=== PATIENT | female | born 1965 | race Caucasian/White ===

== ENCOUNTER → 2021-06-17 10:58 | Outpatient (BNVA) | payer BC, SELFPAY | PROVIDERS: Visit Provider Nurse Practitioner Family | DX: Z20.822 Contact with and (suspected) exposure to COVID-19 (principal); J06.9 Acute upper respiratory infection, unspecified | CPT/HCPCS: 87426; 87635 ==

== ENCOUNTER 2023-10-09 19:08 | Inpatient (IN) | payer BC, SELFPAY ==
[2023-10-09 19:27] VITALS: BMI 20.5
--- NOTE | 2023-10-09 19:54 | CTR_ITS ---
PROCEDURE INFORMATION: Exam: CT Head With Contrast Exam date and time: 10/09/2023 8:30 PM Age: 58 years old Clinical indication: Altered mental status/memory loss; Patient HX: Sudden onset of paranoid delusions. No prior psychiatric history. ; Additional info: Mental status changes TECHNIQUE: Imaging protocol: Computed tomography of the head with intravenous contrast. Radiation optimization: All CT scans at this facility use at least one of these dose optimization techniques: automated exposure control; mA and/or kV adjustment per patient size (includes targeted exams where dose is matched to clinical indication); or iterative reconstruction. Contrast material: OMNI 350; Contrast volume: 100 ml; Contrast route: INTRAVENOUS (IV); COMPARISON: No relevant prior studies available. RADIATION DOSE METRICS: Total DLP (mGy-cm): 1881.18 FINDINGS: Brain: No acute intracranial hemorrhage. No mass effect. Normal ramirez-white matter differentiation. Mild chronic white matter changes. Vascular calcifications. No abnormal enhancing lesions. Cerebral ventricles: Unremarkable. No ventriculomegaly. Bones/joints: Unremarkable. No acute fracture. Paranasal sinuses: Visualized sinuses are unremarkable. No fluid levels. Mastoid air cells: Visualized mastoid air cells are clear. Asymmetric decreased pneumatization of the left mastoid. Soft tissues: Unremarkable. CT/CT head w con [id number] IMPRESSION: No acute intracranial abnormality.
--- NOTE | 2023-10-09 19:54 | ECG_ITS ---
[facility] Test Date: 2023-10-09 Pat Name: Abby Tomlinson Department: Room: Gender: Female Online Banking Specialist: : 1965 Requested By: Geoff Rey Order Number: [id number] Nichole MD: Cam Benson M.D. Measurements Intervals [place] Rate: 77 P: 46 MT: 124 QRS: 35 QRSD: 82 T: 47 QT: 387 QTc: 441 Interpretive Statements SINUS RHYTHM POSSIBLE LEFT ATRIAL ENLARGEMENT [-0.1mV P-WAVE IN V1/V2] No previous ECG available for comparison Electronically Signed On 10-09-2023 21:47:11 BURIAL VAULT DELIVERER AND INSTALLER by Cam Benson M.D. [email or web address]
[2023-10-09 19:59] LABS: Basophils % 0.3 %; Eosinophils # 0.1 10^3/uL (0.0-0.8); Eosinophils % 1.8 %; Hematocrit 44.3 % (36-47); Lymphocytes # 3.1 10^3/uL (0.8-4.8); Lymphocytes % 42.2 %; Mean Corpuscular HGB Conc 33.6 g/dL (30-55); Mean Corpuscular Hemoglobin 31.5 pg (27-33); Mean Corpuscular Volume 93.7 fl (85-98); Mean Platelet Volume 8.8 fL (7.4-10.4); Monocytes # 0.5 10^3/uL (0.2-0.9); Monocytes % 6.6 %; Neutrophils # 3.64 10^3/uL (1.8-7.7); Nucleated Red Blood Cells % 0 %; Platelet Count 278 10^3/cmm (157-399); Red Blood Count 4.73 10^6/uL (3.85-5.65); Red Cell Distribution Width 11.9 % (12.1-15.1); White Blood Count 7.42 10^3/uL (3.29-11.43)
[2023-10-09 20:21] LABS: Alanine Aminotransferase 17 U/L (0-33); Albumin Level 3.9 g/dL (3.5-5.2); Alkaline Phosphatase 105 U/L (35-105); Anion Gap 12.4 (5-19); Aspartate Amino Transferase 20 U/L (0-32); Blood Urea Nitrogen 8 mg/dL (6-20); Calcium 9.3 mg/dL (8.5-10.5); Carbon Dioxide 31 mmol/L (22-29); Chloride 97 mmol/L (98-107); Globulin 3.7 g/dL (1.3-4.6); Glomerular Filtration Rate 103.4 mL/min (90-130); Glucose 92 mg/dL (65-115); Osmolality Calculated 282 mOsm/kg (285-295); Potassium 3.4 mmol/L (3.5-5.1); Sodium 137 mmol/L (136-145); Total Bilirubin 0.2 mg/dL (0.15-1.2); Total Protein 7.6 g/dL (6.6-8.7)
[2023-10-09] MEDS: iohexol 350 mg/mL 500 mL Btl (per mL) IV (20:34)
[2023-10-09 20:35] LABS: Acetaminophen < 5.0 ug/mL (10-30); Alcohol Level < 10 mg/dL (0-10); Salicylate < 0.3 mg/dL (3-10)
[2023-10-09 20:37] VITALS: BP 125/74; PULSE 78; RESP 20; TEMP 36.6; O2SAT 100
--- NOTE | 2023-10-09 20:57 | PC.NURSE ---
96 Hour Involuntary Hold Patient Rights have been read to the patient and a copy of the same has been given to her. Wind Tunnel Technician Guido Mejia was present at bedside.
--- NOTE | 2023-10-09 21:49 | ED.C_ITS ---
HPI - Psych 2 General: Chief Complaint: Psychiatric Symptoms Stated Complaint: 96 HOUR HOLD Time Seen by Provider: 10/09/23 19:28 History of Present Illness: 58-year-old female comes in transported by local law enforcement. They carry with them a court order for 96-hour hold on this patient. At first, details were not known. We then talked to a member of her family, with which we gain further explanation. She has had erratic behavior recently, has lost 2 jobs because of it. She has been paranoid at home. She believes people are coming into her house and stealing her things. She also believes that she works for the [employer], and that the [place] school adjustment counselor of debt is after her. Affidavits were produced corroborating this. The patient herself has no complaints. She does not complain of being suicidal or homicidal. She denies significant health problems. She is not on any medications she says. Review of Systems 2 Const: Denies: fever(s), chills or body aches Eyes: Denies: change in vision Card: Denies: chest pain or palpitations Resp: Denies: dyspnea, productive cough, non-productive cough or wheezing GI: Denies: abdominal pain, nausea, vomiting, diarrhea or hematochezia : Denies: difficulty voiding Skin/Breast: Denies: rash Neuro: Denies: headache(s), weakness in extremities, dizziness or confusion PFSH ED 2 PFSH: Social History Smoking and tobacco/nicotine status: former use of tobacco/nicotine Physical Exam 2 Const: COMMON NORMALS: no acute distress GENERAL APPEARANCE: cooperative; not ill appearing and not frail appearing HENMT: COMMON NORMALS: normocephalic, atraumatic and Normal external nose present HEAD & SCALP: normocephalic and atraumatic FACE & SINUS: normal facial exam and face symmetric NOSE: Normal external nose present Eye: COMMON NORMALS: Equal, round and reactive pupils present and EOMs intact bilaterally PUPIL: Yes Equal, round and reactive pupils present Neck/C-Spine: GENERAL: Yes trachea midline Chest: CHEST: Yes Symmetrical chest wall rise Resp: COMMON NORMALS: normal respiratory effort, No retractions, No use of accessory muscles and clear to auscultation bilaterally AUSCULTATION: clear to auscultation bilaterally Cardio: COMMON NORMALS: regular rate and regular rhythm RATE: regular rate RHYTHM: regular rhythm GI: COMMON NORMALS: Normal to inspection, nondistended, normoactive bowel sounds present Extremity: COMMON NORMALS: no pedal edema Neuro: SAMANTHA COMA SCALE: document GCS findings Samantha coma scale eye opening: Spontaneous Samantha coma scale verbal response: Orientated Samantha coma scale motor response: Obey commands [place] coma scale total score: 15 S ENSORY EXAM: Yes extremities (intact) Psych: COMMON NORMALS: speech normal SPEECH: Yes normal speech Skin: COMMON NORMALS: no rashes or lesions noted GENERAL SKIN EXAM: no rashes or lesions noted Course 2 Vital Signs: Vital signs: Vital Signs Temperature 98 F 10/09/23 20:37 Pulse Rate 76 10/09/23 22:12 Respiratory Rate 16 10/09/23 22:12 Blood Pressure 138/95 10/09/23 22:00 Pulse Oximetry 99 10/09/23 22:12 Oxygen Delivery Me thod Room Air 10/09/23 23:52 MDM - Psych Medical Decision Making Patient is medically quite stable. There is no sign of intoxication. CBC is normal. BMP is not remarkable. Liver enzymes are nonremarkable. Alcohol level is nondetectable. Head CT with contrast shows no acute intracranial abnormality, meaning no mass lesion, etc. This lady is exhibiting paranoid behavior. She has a court ordered 96-hour hold. Spoke with psychiatry, willing to admit for evaluation. Lab Data 10/09/23 19:25 10/09/23 19:[address] 10/09/23 19:54 IMPRESSION: No acute intracranial abnormality. Laboratory Results WBC 7.42 10^3/uL (3.29-11.43) 10/09/23 19:25 RBC 4.73 10^6/uL (3.85-5.65) 10/09/23 19:25 Hgb 14.90 g/dL (11.27-16.99) 10/09/23 19:25 Hct 44.3 % (36-47) 10/09/23 19:25 MCV 93.7 fl (85-98) 10/09/23 19:25 MCH 31.5 pg (27-33) 10/09/23 19:25 MCHC 33.6 g/dL (30-55) 10/09/23 19:25 RDW 11.9 % (12.1-15.1) L 10/09/23 19:25 Plt Count 278 10^3/cmm (157-399) 10/09/23 19:25 MPV 8.8 fL (7.4-10.4) 10/09/23 19:25 Neut % (Auto) 49.0 % 10/09/23 19:25 Lymph % (Auto) 42.2 % 10/09/23 19:25 [place] % (Auto) 6.6 % 10/09/23 19:25 Eos % (Auto) 1.8 % 10/09/23 19:25 Baso % (Auto) 0.3 % 10/09/23: Neut # (Auto) 3.64 10^3/uL (1.8-7.7) 10/09/23: Lymph # (Auto) 3.1 10^3/uL (0.8-4.8) 10/09/23 19:25 [place] # (Auto) 0.5 10^3/uL (0.2-0.9) 10/09/23 19:25 Eos # (Auto) 0.1 10^3/uL (0.0-0.8) 10/09/23 19:25 Baso # (Auto) 0.0 10^3/uL (0.0-0.1) 10/09/23 19: Nucleated RBC % (auto) 0 % 10/09/23: Nucleated RBCs # 0.0 /100WBC 10/09/23 19:25 Sodium 137 mmol/L (136-145) 10/09/23 19:25 Potassium 3.4 mmol/L (3.5-5.1) L 10/09/23 19:25 Chloride 97 mmol/L (98-107) L 10/09/23 19:25 Carbon Dioxide 31 mmol/L (22-29) H 10/09/23 19:25 Anion Gap 12.4 (5-19) 10/09/23 19:25 BUN 8 mg/dL (6-20) 10/09/23 19:25 Creatinine 0.6 mg/dL (0.5-0.9) 10/09/23 19:25 GFR Calculation 103.4 mL/min (90-130) 10/09/23 19:25 Glucose 92 mg/dL (65-115) 10/09/23 19:25 Calculated Osmolality 282 mOsm/kg (285-295) L 10/09/23 19:25 Calcium 9.3 mg/dL (8.5-10.5) 10/09/23 19:25 Total Bilirubin 0.2 mg/dL (0.15-1.2) 10/09/23 19:25 AST 20 U/L (0-32) 10/09/23 19:25 ALT 17 U/L (0-33) 10/09/23 19:25 Alkaline Phosphatase 105 U/L (35-105) 10/09/23 19:25 Total Protein 7.6 g/dL (6.6-8.7) 10/09/23 19:25 Albumin 3.9 g/dL (3.5-5.2) 10/09/23 19:25 Globulin 3.7 g/dL (1.3-4.6) 10/09/23 19:25 HCG, Qual Negative (Negative) 10/09/23 21:41 Urine Color Yellow (Yellow) 10/09/23 21:41 Urine Appearance Hazy (CLEAR) A 10/09/23 21:41 Urine pH 5 (5-7) 10/09/23 21:41 Ur Specific [place] 1.010 (1.005-1.030) 10/09/23 21:41 Urine Protein Trace (Negative) 10/09/23 21:41 Urine Glucose (UA) Norm (Normal) 10/09/23 21:41 Urine Ketones Negative (Negative) 10/09/23 21:41 Urine Blood Neg (Negative) 10/09/23 21:41 Urine Nitrate Negative (Negative) 10/09/23 21:41 Urine Bilirubin Neg (Negative) 10/09/23 21:41 Urine Urobilinogen Norm mg/dL (Negative) 10/09/23 21:41 Ur Leukocyte Esterase Trace (Negative) H 10/09/23 21:41 Urine RBC 0-4 /hpf (0-2) H 10/09/23 21:41 Urine WBC 5-10 /hpf (0-5) H 10/09/23 21:41 Ur Squamous Epith Cells 5-10 /hpf (0-5) H 10/09/23 21:41 Amorphous Sediment Not Reportable 10/09/23 21:41 Urine Bacteria Trace /hpf (NONE) 10/09/23 21:41 Salicylates < 0.3 mg/dL (3-10) L 10/09/23 19:25 Urine Opiates Screen Negative ng/mL (Negative) 10/09/23 21:41 Acetaminophen < 5.0 ug/mL (10-30) L 10/09/23 19:25 Ur Barbiturates Screen Negative ng/mL (Negative) 10/09/23 21:41 Ur Phencyclidine Scrn Negative ng/mL (Negative) 10/09/23 21:41 Ur Amphetamines Screen Negative ng/mL (Negative) 10/09/23 21:41 U Benzodiazepines Scrn Negative ng/mL (Negative) 10/09/23 21:41 Urine Cocaine Screen Negative ng/mL (Negative) 10/09/23 21:41 U Marijuana (THC) Screen Negative ng/mL (Negative) 10/09/23 21:41 Ethyl Alcohol < 10 mg/dL (0-10) 10/09/23 19:25 All radiology interpretation(s) finalized by discharge Discharge Plan Discharge Patient Disposition: Admitted As Inpatient Admit Provider: Devyn Mcmullen Clinical Impression: Acute psychosis Condition: Stable Coding Level of Care Code ED Director Non Profit for Amparo Bee
[2023-10-09 21:58] LABS: Add Urine Microscopic? YES; Bilirubin Urine Neg (Negative); Blood Urine Neg (Negative); Glucose Urine UA Norm (Normal); Ketones Urine Negative (Negative); Leukocyte Esterase Urine Trace (Negative); Nitrate Urine Negative (Negative); Protein Urine Trace (Negative); RBC Urine 0-4 /hpf (0-2); Urine Appearance Hazy (CLEAR); Urine Color Yellow (Yellow); Urobilinogen Urine Norm (Negative); pH Urine 5 (5-7)
[2023-10-09 21:59] LABS: Bacteria Urine TRACE /hpf; HCG Qualitative Urine. Negative (Negative)
[2023-10-09 22:00] VITALS: BP 138/95; PULSE 79; RESP 18; O2SAT 96
[2023-10-09 22:02] LABS: Amphetamines Screen Urine Negative (Negative); Barbiturates Screen Urine Negative (Negative); Benzodiazepines Screen Urine Negative (Negative); Cocaine Screen Urine Negative (Negative); Opiate Screen Urine Negative (Negative); PCP Screen Urine Negative (Negative); THC Screen Urine Negative (Negative)
[2023-10-09 22:12] VITALS: PULSE 76; RESP 16; O2SAT 99
--- NOTE | 2023-10-10 00:04 | PC.ADMIT ---
[address] Admission Note: The patient,Abby Tomlinson,58 y/o, was given written information regarding hospital policies, unit procedures and contact persons. Patient's smoking status: former smoker. Vital Signs - 8 hr 10/09/23 20:37 10/09/23 22:00 10/09/23 22:12 Temperature 98 F Pulse Rate 78 79 76 Respiratory Rate 20 H 18 16 Blood Pressure 125/74 138/95 Pulse Oximetry 100 96 99 Oxygen Delivery Method Room Air 10/09/23 23:52 Temperature Pulse Rate Respiratory Rate Blood Pressure Pulse Oximetry Oxygen Delivery Method Room Air ADMITTED FROM ER VIA WHEELCHAIR, SECURITY AND ER STAFF AT 2232. WHEN ASKED WHY SHE WAS HERE PT STATED I REALLY DON'T KNOW, MAYBE MY FAMILY WAS CONCERNED. PT STATES SHE DOES NOT TAKE ANY MEDICATIONS, HAS NEVER BEEN IN A PSYCH FACILTIY AND DOES NOT SEE ANYONE OUTPATIENT. PT WAS OBSERVED WITH RAPID SPEECH AND STATING THE IPHONES NOW WHEN YOU RESET THEM THEY CAN SEE YOU, HEAR YOU AND RECORD YOU, AND PEOPLE WILL COME TO MY HOUSE FROM SOME LAW FIRM LOOKING THROUGH MY RECEIPTS AND ITS TAX TIME SO THEY MESSED IT ALL UP. PT DENIES SI/HI AND AVH AT THIS TIME. RATES ANXIETY AND DEPRESSION 0/10. DENIES PAIN. PT IS OBSERVED HAVING DELUSIONS. PT WAS ORIENTED TO UNIT, SAFETY RULES AND ROOM. PT HAS NEVER HAD A SUICIDE ATTEMPT. PT DENIES ANY SUBSTANCE USE OR ALCOHOL USE. ALL QUESTIONS ANSWERED AND SUPPORT VOICED. PT DIET ORDER IS REGULAR WITH NO RED MEAT DUE TO ALPHA 1,3 GAL ALLERGY.
[2023-10-10 06:00] VITALS: BP 115/69; PULSE 84; RESP 16; TEMP 36.6; O2SAT 96
--- NOTE | 2023-10-10 09:32 | PC.NURSE ---
During morning assessment, patient stated that she is unsure why she is here, then went on to say that she is here for anxiety. Onset of anxiety was when her parents were sick and . Patient was a caregiver for them. Patient denies SI, HI, AVH.
[2023-10-10 14:00] VITALS: BP 126/87; PULSE 68; RESP 13; TEMP 36.6; O2SAT 98
--- NOTE | 2023-10-10 16:21 | P.NPUHP_ITS ---
Providers/Chief Complaint 2 Admitting Physician: Devyn Mcmullen MD Chief Complaint: 96 HOUR HOLD HPI NPU History of Present Illness Abby Tomlinson is a 58 year old female who presented to the emergency department with the following report: Chief Complaint: Psychiatric Symptoms Stated Complaint: 96 HOUR HOLD Time Seen by Provider: 10/09/23 19:28 History of Present Illness: 58-year-old female comes in transported by local law enforcement. They carry with them a court order for 96-hour hold on this patient. At first, details were not known. We then talked to a member of her family, with which we gain further explanation. She has had erratic behavior recently, has lost 2 jobs because of it. She has been paranoid at home. She believes people are coming into her house and stealing her things. She also believes that she works for the [employer], and that the [place] toll collector of debt is after her. Affidavits were produced corroborating this. The patient herself has no complaints. She does not complain of being suicidal or homicidal. She denies significant health problems. She is not on any medications she says. CHIEF COMPLAINT Anxiety issues, recent loss of both parents, feeling of loneliness, concerns raised by family members about potential self-harm. HISTORY OF THE PRESENT COMPLAINT The patient reported experiencing anxiety, which she described as a significant issue for her. She did not provide specific details about the onset, duration, or severity of her anxiety. She did not mention any specific triggers for her anxiety. The patient recently lost both of her parents within a two-week period, which she described as a very difficult experience. She also mentioned feeling lonely due to spending a lot of time by herself. She reported that a cousin of hers recently committed suicide, and she believes that this event may have influenced her family's decision to have her hospitalized. She expressed confusion about their concerns for her safety, stating that she does not feel suicidal and generally considers herself a happy person who enjoys socializing and running with others. The patient denied experiencing depression but acknowledged having anxiety. She expressed a desire for help in managing her anxiety. She denied experiencing any nightmares or flashbacks related to traumatic events in her life. The patient reported some unusual experiences, including an incident where she believed a [employer] was trying to steal her belongings and another incident where she believed someone had reset her iPhone in an attempt to monitor her activities. She also mentioned [place] at an airport due [place] and not being able to find her way home until 4:00 in the morning. The patient denied having any paranoia or experiencing hallucinations. She also denied having any thoughts of self-harm or harming others. Regarding past treatments, the patient reported that she has never been hospitalized for psychiatric reasons, never used outpatient services, and never been on psychiatric medication. She did not mention any current medications during the consultation. MENTAL HEALTH HISTORY No previous psychiatric hospitalization or outpatient services, no history of psychiatric medication, cousin committed suicide recently. SOCIAL HISTORY Enjoys running and being with people, lost two jobs recently due to disruptive behavior, worked at [employer] for 10+ years, lives alone in a duplex with a dog, never been , no children, Sabianist, heterosexual. Meds NPU Home Medications Medication Instructions Recorded Confirmed Last Taken Type epinephrine 0.3 mg/0.3 mL 0.3 mg (0.3 mL) IM Q10M PRN 01/31/22 10/10/23 Unknown Rx injection, auto-injector (EpiPen) anaphylaxis #1 ea Allergies Allergy/AdvReac Type Severity Reaction Status Date / Time Alpha-Gal Allergy ALGY-Anaphy Verified 10/09/23 22:20 (Ktntraonf-Evwyl-4,3-Gala laxis PFSH NPU 2 PFSH: Social History Smoking and tobacco/nicotine status: former use of tobacco/nicotine Mental Status Exam 2 MSE Comments: This is a slender white female in hospital scrubs with adequate grooming and eye contact. No abnormal movements except for mild psychomotor retardation. Cooperative with exam in mild distress. Speech was normal rate and volume. Mood described as anxious, affect congruent except a somewhat Laissez-Faire attitude. Thought process organized. Thought content: Patient denies suicidal or homicidal ideations, there were no delusions reported but concern for paranoia noted, she denied auditory or visual hallucinations. Attention and concentration were mostly intact and memory appeared unreliable but none were formally tested. She is alert and oriented x 3. Insight, judgment and impulse control are limited. Vitals/I&O/Wt Last Vital Signs Temp 97.9 F 10/10/23 14:00 Pulse 68 01/27/24 14:00 Resp 13 10/10/23 14:00 BP 126/87 10/10/23 14:00 Pulse Ox 98 10/10/23 14:00 O2 Del Method Room Air 10/10/23 06:00 Weight last 48 hrs Weight 54.431 kg Data NPU 10/09/23 19:25 10/09/23 19:25 A&P Assessment and plan (1) Acute psychosis: (2) Allergy to alpha-gal: (3) Tick bite of abdomen: Plan This is a 58-year-old white female who presents with anxiety and recent significant life stressors including the loss of both parents and a cousin's suicide. No history of psychiatric hospitalization or medication. Patient denies suicidal ideation but family members have expressed concern about potential self-harm. Patient denies any hallucinations or paranoia. Patient's behavior has been described as erratic and disruptive, leading to job loss. Will consider initiation of medication. 1. Continue current medication. Will consider Abilify with patient permission. 2. Continue every 15 minute checks for safety. 3. Encourage individual, group and milieu therapies. 4. Obtain collateral information. Involuntary Hold Information 2 96 Hour Hold: 96 Hour Involuntary Admission: Yes 96 Hour Hold Ending Date: 10/15/23 96 Hour Hold Ending Time: 20:40 Attestations NPU 2 Medical Necessity Statement*: Inpatient hospitalization is medically necessary and the clinically appropriate intervention at this time. We will monitor medications and make changes as indicated. Patient will be in the hospital for over two midnights. Likely length of stay 3-5 days. Coding Level of Care Code Acute Code for Chg Fwd Diagnoses Acute psychosis F23 Allergy to alpha-gal Z91.018 Tick bite of abdomen S30.861A; W57.XXXA
[2023-10-10 20:02] VITALS: BP 149/87; PULSE 71; RESP 18; TEMP 36.4; O2SAT 97
[2023-10-11 06:00] VITALS: BP 120/75; PULSE 69; RESP 16; TEMP 36.6; O2SAT 98
[2023-10-11 14:00] VITALS: BP 115/74; PULSE 78; RESP 16; TEMP 36.4; O2SAT 95
--- NOTE | 2023-10-11 18:48 | P.NPUPN_ITS ---
Subjective NPU 2 Subjective: Patient presented today reporting that she is feeling fine and continues to feel at some level that there is a misunderstanding. However she reports that she respects the concern of the people have and we discussed the risks, benefits and alternatives of a trial of Abilify and she understood and agreed to proceed as is documented in this note. Mental Status Exam 2 MSE Comments: This is a slender white female in hospital scrubs with adequate grooming and eye contact. No abnormal movements except for mild psychomotor retardation. Cooperative with exam in mild distress. Speech was normal rate and volume. Mood described as anxious, affect congruent except a somewhat Laissez-Faire attitude. Thought process organized. Thought content: Patient denies suicidal or homicidal ideations, there were no delusions reported but concern for paranoia noted, she denied auditory or visual hallucinations. Attention and concentration were mostly intact and memory appeared unreliable but none were formally tested. She is alert and oriented x 3. Insight, judgment and impulse control are limited. Vitals/I&O/Wt Last Vital Signs Temp 97.6 F 10/11/23 14:00 Pulse 71 10/11/23 14:00 Resp 16 10/11/23 14:00 BP 115/74 10/11/23 14:00 Pulse Ox 95 10/11/23 14:00 O2 Del Method Room Air 10/11/23 14:00 Weight last 48 hrs Weight 60.328 kg Weight 60.328 kg Data NPU 10/09/23 19:25 10/09/23 19:25 A&P Assessment and plan (1) Acute psychosis: (2) Allergy to alpha-gal: (3) Tick bite of abdomen: Plan This is a 58-year-old white female who presents with anxiety and recent significant life stressors including the loss of both parents and a cousin's suicide. No history of psychiatric hospitalization or medication. Patient denies suicidal ideation but family members have expressed concern about potential self-harm. Patient denies any hallucinations or paranoia. Patient's behavior has been described as erratic and disruptive, leading to job loss. Will consider initiation of medication. 1. Continue current medication. Start Abilify 5 mg p.o. once today and increase to 10 mg p.o. daily tomorrow 2. Continue every 15 minute checks for safety. 3. Encourage individual, group and milieu therapies. 4. Obtain collateral information. Involuntary Hold Information 2 96 Hour Hold: 96 Hour Involuntary Admission: Yes 96 Hour Hold Ending Date: 10/15/23 96 Hour Hold Ending Time: 20:40 Attestations NPU 2 Medical Necessity Statement*: Inpatient hospitalization is medically necessary and the clinically appropriate intervention at this time. We will monitor medications and make changes as indicated. Likely length of stay 2-4 days. Coding Level of Care Code Acute Code for Chg Fwd Diagnoses Acute psychosis F23 Allergy to alpha-gal Z91.018 Tick bite of abdomen S30.861A; W57.XXXA
[2023-10-11 19:37] VITALS: BP 126/75; PULSE 76; RESP 18; O2SAT 98
[2023-10-11] MEDS: ARIPiprazole 10 mg Tablet 5 MG PO (20:12)
[2023-10-12 06:00] VITALS: BP 122/80; PULSE 77; RESP 18; TEMP 36.6; O2SAT 97
[2023-10-12] MEDS: ARIPiprazole 10 mg Tablet PO (08:21)
--- NOTE | 2023-10-12 08:52 | P.NPUPN_ITS ---
Subjective NPU 2 Subjective: Patient presented today being very thankful for the assistance she has received here and reporting a willingness to continue the medication. She reports she is feeling better but feels that much of what she has [place] and is related to the stress of recent losses. She denied any side effects of the medication and we discussed talking with her family to understand whether there was any need to keep her beyond her 96-hour hold ending 10/15/2023. Mental Status Exam 2 MSE Comments: This is a slender white female in hospital scrubs with adequate grooming and eye contact. No abnormal movements except for mild psychomotor retardation. Cooperative with exam in mild distress. Speech was normal rate and volume. Mood described as anxious, affect congruent except a somewhat Laissez-Faire attitude. Thought process organized. Thought content: Patient denies suicidal or homicidal ideations, there were no delusions reported but concern for paranoia noted, she denied auditory or visual hallucinations. Attention and concentration were mostly intact and memory appeared unreliable but none were formally tested. She is alert and oriented x 3. Insight, judgment and impulse control are limited. Vitals/I&O/Wt Last Vital Signs Temp 97.9 F 10/12/23 06:00 Pulse 77 10/12/23 06:00 Resp 18 10/12/23 06:00 BP 122/80 10/12/23 06:00 Pulse Ox 97 10/12/23 06:00 O2 Del Method Room Air 10/12/23 06:00 Weight last 48 hrs Weight 60.328 kg Weight 60.328 kg Data NPU 10/09/23 19:25 10/09/23 19:25 A&P Assessment and plan (1) Acute psychosis: (2) Allergy to alpha-gal: (3) Tick bite of abdomen: Plan This is a 58-year-old white female who presents with anxiety and recent significant life stressors including the loss of both parents and a cousin's suicide. No history of psychiatric hospitalization or medication. Patient denies suicidal ideation but family members have expressed concern about potential self-harm. Patient denies any hallucinations or paranoia. Patient's behavior has been described as erratic and disruptive, leading to job loss. Will consider initiation of medication. 1. Continue current medication. Started Abilify 5 mg p.o. once and increased to 10 mg p.o. daily 10/12/2023 2. Continue every 15 minute checks for safety. 3. Encourage individual, group and milieu therapies. 4. Obtain collateral information to determine whether there has been improvement on her subtle symptomatology.. Involuntary Hold Information 2 96 Hour Hold: 96 Hour Involuntary Admission: Yes 96 Hour Hold Ending Date: 10/15/23 96 Hour Hold Ending Time: 20:40 Attestations NPU 2 Medical Necessity Statement*: Inpatient hospitalization is medically necessary and the clinically appropriate intervention at this time. We will monitor medications and make changes as indicated. Likely length of stay 2-4 days. Coding Level of Care Code Acute Code for Chg Fwd Diagnoses Acute psychosis F23 Allergy to alpha-gal Z91.018 Tick bite of abdomen S30.861A; W57.XXXA
[2023-10-12 14:00] VITALS: BP 124/88; PULSE 91; RESP 14; O2SAT 94
[2023-10-12 19:49] VITALS: BP 120/74; PULSE 94; RESP 20; O2SAT 95
[2023-10-12] MEDS: cetylpyridinium Lozenge 1 EACH MUCOUS MEM (22:35)
[2023-10-13 06:00] VITALS: BP 119/80; PULSE 84; RESP 18; TEMP 36.3; O2SAT 94
--- NOTE | 2023-10-13 08:33 | P.NPUPN_ITS ---
Subjective NPU 2 Subjective: Patient presented today reporting that she is feeling okay. We discussed her 96-hour hold coming to a conclusion shortly and asked trying to figure out whether there is a need for a 21-day hold at this point she reports she is tolerating the medication well and we talked about the possibilities of an increase. She denied any current side effects or difficulties with the medication. Mental Status Exam 2 MSE Comments: This is a slender white female in hospital scrubs with adequate grooming and eye contact. No abnormal movements except for mild psychomotor retardation. Cooperative with exam in mild distress. Speech was normal rate and volume. Mood described as anxious, affect congruent except a somewhat Laissez-Faire attitude. Thought process organized. Thought content: Patient denies suicidal or homicidal ideations, there were no delusions reported but concern for paranoia noted, she denied auditory or visual hallucinations. Attention and concentration were mostly intact and memory appeared unreliable but none were formally tested. She is alert and oriented x 3. Insight, judgment and impulse control are limited. Vitals/I&O/Wt Last Vital Signs Temp 97.4 F L 10/13/23 06:00 Pulse 84 10/13/23 06:00 Resp 18 10/13/23 06:00 BP 119/80 10/13/23 06:00 Pulse Ox 94 10/13/23 06:00 O2 Del Method Room Air 10/13/23 06:00 Data NPU 10/09/23 19:25 10/09/23 19:25 A&P Assessment and plan (1) Allergy to alpha-gal: (2) Tick bite of abdomen: Plan This is a 58-year-old white female who presents with anxiety and recent significant life stressors including the loss of both parents and a cousin's suicide. No history of psychiatric hospitalization or medication. Patient denies suicidal ideation but family members have expressed concern about potential self-harm. Patient denies any hallucinations or paranoia. Patient's behavior has been described as erratic and disruptive, leading to job loss. Will consider initiation of medication. 1. Continue current medication. Started Abilify 5 mg p.o. once and increased to 10 mg p.o. daily 10/12/2023 2. Continue every 15 minute checks for safety. 3. Encourage individual, group and milieu therapies. 4. Obtain collateral information to determine whether there has been improvement on her subtle symptomatology. 5. Family reports filing for guardianship. We will discuss with them what we should do with her during the interim. Consideration of continued hospitalization versus discharge etc. Involuntary Hold Information 2 96 Hour Hold: 96 Hour Involuntary Admission: Yes 96 Hour Hold Ending Date: 10/15/23 96 Hour Hold Ending Time: 20:40 Attestations NPU 2 Medical Necessity Statement*: Inpatient hospitalization is medically necessary and the clinically appropriate intervention at this time. We will monitor medications and make changes as indicated. Likely length of stay 2-4 days. Coding Level of Care Code Acute Code for Chg Fwd Diagnoses Allergy to alpha-gal Z91.018 Tick bite of abdomen S30.861A; W57.XXXA
[2023-10-13] MEDS: ARIPiprazole 10 mg Tablet PO (08:57)
[2023-10-13 14:00] VITALS: BP 100/69; PULSE 85; RESP 16; TEMP 36.6; O2SAT 97
[2023-10-13 20:18] VITALS: BP 112/75; PULSE 83; RESP 16; TEMP 36.5; O2SAT 94
[2023-10-13] MEDS: cetylpyridinium Lozenge 1 EACH MUCOUS MEM (20:41)
[2023-10-14 06:00] VITALS: BP 119/81; PULSE 84; RESP 16; TEMP 36.4; O2SAT 97
[2023-10-14] MEDS: ARIPiprazole 10 mg Tablet 15 MG PO (09:05)
[2023-10-14 14:00] VITALS: BP 115/82; PULSE 92; RESP 15; O2SAT 96
--- NOTE | 2023-10-14 17:15 | P.NPUPN_ITS ---
Subjective NPU 2 Subjective: Patient presented today reporting she is doing all right. Some concerns exist that may be family is not speaking to her about the pursuit of guardianship raised by staff. Patient reporting she has not spoken to them recently but had a friend visit and that friend was very positive about the prospect of her coming home and plans of being supportive and her return. We discussed the need to have a family meeting of sorts tomorrow to try to identify the appropriate process for managing any extension of the hold versus returning home with supports. Mental Status Exam 2 MSE Comments: This is a slender white female in hospital scrubs with adequate grooming and eye contact. No abnormal movements except for mild psychomotor retardation. Cooperative with exam in mild distress. Speech was normal rate and volume. Mood described as anxious, affect congruent except a somewhat Laissez-Faire attitude. Thought process organized. Thought content: Patient denies suicidal or homicidal ideations, there were no delusions reported but concern for paranoia noted, she denied auditory or visual hallucinations. Attention and concentration were mostly intact and memory appeared unreliable but none were formally tested. She is alert and oriented x 3. Insight, judgment and impulse control are limited. Vitals/I&O/Wt Last Vital Signs Temp 97.5 F L 10/14/23 06:00 Pulse 92 10/14/23 14:00 Resp 15 10/14/23 14:00 BP 115/82 10/14/23 14:00 Pulse Ox 96 10/14/23 14:00 O2 Del Method Room Air 10/14/23 06:00 Data NPU 10/09/23 19:25 10/09/23 19:25 A&P Assessment and plan (1) Allergy to alpha-gal: (2) Tick bite of abdomen: Plan This is a 58-year-old white female who presents with anxiety and recent significant life stressors including the loss of both parents and a cousin's suicide. No history of psychiatric hospitalization or medication. Patient denies suicidal ideation but family members have expressed concern about potential self-harm. Patient denies any hallucinations or paranoia. Patient's behavior has been described as erratic and disruptive, leading to job loss. Will consider initiation of medication. 1. Continue current medication. Started Abilify 5 mg p.o. once and increased to 10 mg p.o. daily 10/12/2023. Increased Abilify to 15 mg p.o. daily. 2. Continue every 15 minute checks for safety. 3. Encourage individual, group and milieu therapies. 4. Obtain collateral information to determine whether there has been improvement on her subtle symptomatology. 5. Family reports filing for guardianship. We will discuss with them what we should do with her during the interim. Consideration of continued hospitalization versus discharge etc. court reports that family did file for guardianship and we need to work with family tomorrow on safety for discharge versus any plan for her to stay in the hospital for any portion of this process. Involuntary Hold Information 2 96 Hour Hold: 96 Hour Involuntary Admission: Yes 96 Hour Hold Ending Date: 10/15/23 96 Hour Hold Ending Time: 20:40 Attestations NPU 2 Medical Necessity Statement*: Inpatient hospitalization is medically necessary and the clinically appropriate intervention at this time. We will monitor medications and make changes as indicated. Likely length of stay 1-3 days. Coding Level of Care Code Acute Code for Chg Fwd Diagnoses Allergy to alpha-gal Z91.018 Tick bite of abdomen S30.861A; W57.XXXA
[2023-10-14 20:59] VITALS: BP 120/82; PULSE 85; RESP 18; TEMP 36.3; O2SAT 96
[2023-10-15 06:00] VITALS: BP 126/90; PULSE 79; RESP 18; TEMP 36.4; O2SAT 95
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
[2023-10-15] MEDS: ARIPiprazole 10 mg Tablet 15 MG PO (08:32)
[2023-10-15 14:00] VITALS: BP 119/81; PULSE 77; RESP 16; TEMP 36.6; O2SAT 96
[2023-10-15] MEDS: cetylpyridinium Lozenge 1 EACH MUCOUS MEM (15:23)
--- NOTE | 2023-10-15 16:43 | PC.NURSE ---
Sister's number is [phone]. Sister's name is Sultana Lynn Brother in law Hoang Lynn, phone number is: [phone]
[2023-10-15 20:41] VITALS: BP 111/74; PULSE 88; RESP 16; TEMP 36.4; O2SAT 97
[2023-10-16 06:00] VITALS: BP 133/84; PULSE 83; RESP 16; TEMP 36.3; O2SAT 94
[2023-10-16] MEDS: ARIPiprazole 10 mg Tablet 15 MG PO (09:02)
[2023-10-16 14:00] VITALS: BP 113/82; PULSE 103; RESP 16; TEMP 36.6; O2SAT 97
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
[2023-10-16] MEDS: cetylpyridinium Lozenge 1 EACH MUCOUS MEM (19:36)
[2023-10-16 20:38] VITALS: BP 118/78; PULSE 99; RESP 18; TEMP 36.8; O2SAT 94
[2023-10-17 06:00] VITALS: BP 106/68; PULSE 76; RESP 16; TEMP 36.9; O2SAT 97
[2023-10-17] MEDS: ARIPiprazole 10 mg Tablet 15 MG PO (08:18)
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
[2023-10-17 14:00] VITALS: BP 116/74; PULSE 99; RESP 16; TEMP 36.6; O2SAT 93
[2023-10-17 20:15] VITALS: BP 115/76; PULSE 70; RESP 16; TEMP 36.6; O2SAT 97
[2023-10-18 06:00] VITALS: BP 104/71; PULSE 73; RESP 18; TEMP 36.4; O2SAT 96; BMI 23.1
[2023-10-18] MEDS: ARIPiprazole 10 mg Tablet 15 MG PO (08:35)
[2023-10-18] MEDS: cetylpyridinium Lozenge 1 EACH MUCOUS MEM (08:58)
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
[2023-10-18 14:00] VITALS: BP 128/77; PULSE 78; RESP 16; TEMP 37; O2SAT 94
[2023-10-18 19:56] VITALS: BP 129/86; PULSE 88; RESP 18; TEMP 36.5; O2SAT 94
[2023-10-19 06:00] VITALS: BP 115/83; PULSE 90; RESP 16; TEMP 36.6; O2SAT 99
[2023-10-19] MEDS: cetylpyridinium Lozenge 1 EACH MUCOUS MEM ×2 (06:18→18:46)
[2023-10-19] MEDS: ARIPiprazole 10 mg Tablet 15 MG PO (07:58)
--- NOTE | 2023-10-19 08:03 | PC.NURSE ---
Patient reports anxiety related to going to court today. Patient denies SI, HI, AVH, and depression. Patient appears confused when this nurse asked her to take her morning medications; patient kept forgetting to take them despite her having the cup of meds.
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
[2023-10-19 13:28] VITALS: BP 115/75; PULSE 104; RESP 15; O2SAT 96
[2023-10-19 20:53] VITALS: BP 123/76; PULSE 77; RESP 18; TEMP 36.6; O2SAT 98
[2023-10-20 06:00] VITALS: BP 119/73; PULSE 87; RESP 18; TEMP 36.6; O2SAT 98
[2023-10-20] MEDS: ARIPiprazole 10 mg Tablet 15 MG PO (08:57)
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
[2023-10-20 14:00] VITALS: BP 116/77; PULSE 84; RESP 16; TEMP 36.8; O2SAT 96
[2023-10-20 20:40] VITALS: BP 128/85; PULSE 86; RESP 16; TEMP 36.4; O2SAT 97
[2023-10-21 05:45] VITALS: BP 119/79; PULSE 79; RESP 18; TEMP 36.4; O2SAT 92
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
[2023-10-21] MEDS: ARIPiprazole 10 mg Tablet 15 MG PO (08:47)
[2023-10-21 14:00] VITALS: BP 137/80; PULSE 94; RESP 13; O2SAT 96
--- NOTE | 2023-10-21 14:52 | CT_ITS ---
WS: [id number] CT HEAD TECHNIQUE: Noncontrast CT of the head obtained from the skullbase to the vertex. CLINICAL INFORMATION: new onset psychosis, refused CT in ER, now participating COMPARISON: CT 10/09/2023 DLP: 994.[address] scans at [facility] use at least one of these dose optimization techniques: automated e xposure control; mA and/or kV adjustment per patient size (includes targeted exams where dose is matc hed to clinical indication); or iterative reconstruction. FINDINGS: No evidence of intracranial hemorrhage or mass effect. Ventricular system and basal cisterns are ricketts nt. Mild small vessel changes with moderate parenchymal volume loss worse in the frontal lobes. No ex tra-axial fluid collections. No evidence of mass or mass effect. Paranasal sinuses and mastoid air cells are well aerated. Slight mucosal thickening LEFT mastoid air cells..Normal visualized soft tissues. IMPRESSION: 1. No evidence of intracranial hemorrhage or mass effect. 2. Mild small vessel changes. Moderate parenchymal volume loss. 3. No acute intracranial findings.
--- NOTE | 2023-10-21 15:11 | PC.NURSE ---
Patient off the unit at [address] with [employer]ONT [employer] and Security via wheelchair.
[2023-10-21 21:14] VITALS: BP 103/67; PULSE 84; RESP 16; TEMP 36.5; O2SAT 95
[2023-10-22 06:00] VITALS: BP 160/78; PULSE 86; RESP 18; TEMP 36.9; O2SAT 96
[2023-10-22] MEDS: ARIPiprazole 10 mg Tablet 15 MG PO (08:51)
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
[2023-10-22 14:00] VITALS: BP 124/83; PULSE 84; RESP 20; TEMP 36.5; O2SAT 98
[2023-10-22 21:38] VITALS: BP 96/80; PULSE 74; RESP 16; TEMP 36.4; O2SAT 95
[2023-10-23 06:00] VITALS: BP 132/83; PULSE 78; RESP 18; TEMP 36.4; O2SAT 95
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
[2023-10-23] MEDS: ARIPiprazole 10 mg Tablet 15 MG PO (09:02)
[2023-10-23 14:00] VITALS: BP 119/79; PULSE 96; RESP 20; TEMP 36.6; O2SAT 95
[2023-10-23 21:10] VITALS: BP 107/72; PULSE 81; RESP 16; TEMP 36.9; O2SAT 94
[2023-10-24 06:00] VITALS: BP 115/77; PULSE 85; RESP 16; TEMP 36.7; O2SAT 91
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
[2023-10-24] MEDS: ARIPiprazole 10 mg Tablet 15 MG PO (07:42)
[2023-10-24 14:00] VITALS: RESP 16
[2023-10-24 19:38] VITALS: BP 116/67; PULSE 82; RESP 16; TEMP 36.3; O2SAT 100
[2023-10-25 06:00] VITALS: BP 109/76; PULSE 85; RESP 18; O2SAT 93
[2023-10-25] MEDS: ARIPiprazole 10 mg Tablet 15 MG PO (09:11)
[2023-10-25 14:00] VITALS: BP 109/70; PULSE 86; RESP 14; O2SAT 97
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
[2023-10-25 20:00] VITALS: BP 123/84; PULSE 79; RESP 18; TEMP 36.5; O2SAT 97
[2023-10-26 05:54] VITALS: BP 121/84; PULSE 87; RESP 18; O2SAT 98
[2023-10-26] MEDS: ARIPiprazole 10 mg Tablet 15 MG PO (08:16)
--- NOTE | 2023-10-26 12:26 | P.NPUDS_ITS ---
Diagnoses at Discharge Discharge Diagnosis (1) Allergy to alpha-gal: Status: Acute (2) Tick bite of abdomen: Status: Acute Reason for Visit Reason for Visit: 96 HOUR HOLD Brief History: History of Present Illness Abby Tomlinson is a 58 year old female who presented to the emergency department with the following report: Chief Complaint: Psychiatric Symptoms Stated Complaint: 96 HOUR HOLD Time Seen by Provider: 10/09/23 19:28 History of Present Illness: 58-year-old female comes in transported by local law enforcement. They carry with them a court order for 96-hour hold on this patient. At first, details were not known. We then talked to a member of her family, with which we gain further explanation. She has had erratic behavior recently, has lost 2 jobs because of it. She has been paranoid at home. She believes people are coming into her house and stealing her things. She also believes that she works for the [employer], and that the [employer] driver/refuse collector of debt is after her. Affidavits were produced corroborating this. The patient herself has no complaints. She does not complain of being suicidal or homicidal. She denies significant health problems. She is not on any medications she says. CHIEF COMPLAINT Anxiety issues, recent loss of both parents, feeling of loneliness, concerns raised by family members about potential self-harm. HISTORY OF THE PRESENT COMPLAINT The patient reported experiencing anxiety, which she described as a significant issue for her. She did not provide specific details about the onset, duration, or severity of her anxiety. She did not mention any specific triggers for her anxiety. The patient recently lost both of her parents within a two-week period, which she described as a very difficult experience. She also mentioned feeling lonely due to spending a lot of time by herself. She reported that a cousin of hers recently committed suicide, and she believes that this event may have influenced her family's decision to have her hospitalized. She expressed confusion about their concerns for her safety, stating that she does not feel suicidal and generally considers herself a happy person who enjoys socializing and running with others. The patient denied experiencing depression but acknowledged having anxiety. She expressed a desire for help in managing her anxiety. She denied experiencing any nightmares or flashbacks related to traumatic events in her life. The patient reported some unusual experiences, including an incident where she believed a debt relief company was trying to steal her belongings and another incident where she believed someone had reset her iPhone in an attempt to monitor her activities. She also mentioned getting lost at an airport due to construction and not being able to find her way home until 4:00 in the morning. The patient denied having any paranoia or experiencing hallucinations. She also denied having any thoughts of self-harm or harming others. Regarding past treatments, the patient reported that she has never been hospitalized for psychiatric reasons, never used outpatient services, and never been on psychiatric medication. She did not mention any current medications during the consultation. MENTAL HEALTH HISTORY No previous psychiatric hospitalization or outpatient services, no history of psychiatric medication, cousin committed suicide recently. SOCIAL HISTORY Enjoys running and being with people, lost two jobs recently due to disruptive behavior, worked at [employer] for 10+ years, lives alone in a duplex with a dog, never been , no children, Protestant, heterosexual. Hospital Course Hospital Course During the hospitalization, the patient had routine laboratory studies which were within normal limits except for a few outliers.? Additionally, there was a general medical evaluation which was also within normal limits and revealed no new acute processes.? At the time of discharge, lethality was denied and psychosis was resolving.? Mood and anxiety were well managed.? The patient endorsed a plan to avoid all drugs of abuse and follow up with the aftercare recommendations of the treatment team.? The patient was evaluated and deemed to be absent credible lethality and had achieved the maximum benefit from an inpatient hospitalization, and so was discharged. During the patient's hospitalization, and evaluation was completed that determined that the patient had no ability to live independently. The patient appeared to show evidence of a significant decline in cognition and guardianship was established during her hospital stay by the patient's sister. The patient was agreeable to placement at a residential care facility which would become available in the next few we. The patient had likely achieved maximum medical benefit and was thereby discharged to her sister, the legal guardian's care.? Abilify was started and titrated up to a dose of 15mg prior to discharge. Involuntary Hold Information 96 Hour Hold: 96 Hour Involuntary Admission: Yes 96 Hour Hold Ending Date: 10/15/23 96 Hour Hold Ending Time: 20:40 Mental Status Exam MSE Comments: This is a slender white female in hospital scrubs with adequate grooming and eye contact. No abnormal movements except for mild psychomotor retardation. Cooperative with exam in mild to moderate distress. Speech was normal in rate and volume. Mood described as okay. affect was restricted in range. Thought process was linear and organized. Thought content: Patient denies suicidal or homicidal ideation. There were no delusions and no overt paranoia today. Attention and concentration were mostly intact and memory appeared unreliable but none were formally tested. She is alert and oriented to person, place but not date. Insight was fair. Judgment was limited and impulse control was improved. Discharge Data Studies Completed and Pending: Completed Studies During Hospitalization Category Date Time Status CT head w con [id number] Stat Cat Scan 10/09/23 19:[address] head wo con* [id number] Routine Cat Scan 10/21/23 14:52 Completed Laboratory Results WBC 7.42 10^3/uL (3.2 9-11.43) 10/09/23 19:25 RBC 4.73 10^6/uL (3.8 5-5.65) 10/09/23 19:25 Hgb 14.90 g/dL (11.27 -16.99) 10/09/23 19:25 Hct 44.3 % (36-47) 10/09/23 19:25 MCV 93.7 fl (85-98) 10/09/23 19:25 MCH 31.5 pg (27-33) 10/09/23 19:25 MCHC 33.6 g/dL (30-55) 10/09/23 19:25 RDW 11.9 % (12.1-15.1 ) L 10/09/23 19:25 Plt Count 278 10^3/cmm (157 -399) 10/09/23 19:25 MPV 8.8 fL (7.4-10.4) 10/09/23 19:25 Neut % (Auto) 49.0 % 10/09/23 19: Lymph % (Auto) 42.2 % 10/09/23 19:25 [place] % (Auto) 6.6 % 10/09/23 19:25 Eos % (Auto) 1.8 % 10/09/23 19:25 Baso % (Auto) 0.3 % 10/09/23 19: Neut # (Auto) 3.64 10^3/uL (1.8 -7.7) 10/09/23 19:25 Lymph # (Auto) 3.1 10^3/uL (0.8- 4.8) 10/09/23 19:25 [place] # (Auto) 0.5 10^3/uL (0.2- 0.9) 10/09/23 19:25 Eos # (Auto) 0.1 10^3/uL (0.0- 0.8) 10/09/23 19:25 Baso # (Auto) 0.0 10^3/uL (0.0- 0.1) 10/09/23 19:25 Nucleated RBC % (a uto) 0 % 10/09/23 19:25 Nucleated RBCs # 0.0 /100WBC 10/09/23 19:25 Sodium 137 mmol/L (136-1 45) 10/09/23 19:25 Potassium 3.4 mmol/L (3.5-5 .1) L 10/09/23 19:25 Chloride 97 mmol/L (98-107 ) L 10/09/23 19:25 Carbon Dioxide 31 mmol/L (22-29) H 10/09/23 19:25 Anion Gap 12.4 (5-19) 10/09/23 19:25 BUN 8 mg/dL (6-20) 10/09/23 19:25 Creatinine 0.6 mg/dL (0.5-0. 9) 10/09/23 19:25 GFR Calculation 103.4 mL/min (90- 130) 10/09/23 19:25 Glucose 92 mg/dL (65-115) 10/09/23 19:25 Calculated Osmolal ity 282 mOsm/kg (285- 295) L 10/09/23 19:25 Calcium 9.3 mg/dL (8.5-10 .5) 10/09/23 19:25 Total Bilirubin 0.2 mg/dL (0.15-1 .2) 10/09/23 19:25 AST 20 U/L (0-32) 10/09/23 19:25 ALT 17 U/L (0-33) 10/09/23 19:25 Alkaline Phosphata se 105 U/L (35-105) 10/09/23 19:25 Total Protein 7.6 g/dL (6.6-8.7 ) 10/09/23 19:25 Albumin 3.9 g/dL (3.5-5.2 ) 10/09/23 19:25 Globulin 3.7 g/dL (1.3-4.6 ) 10/09/23 19:25 HCG, Qual Negative (Negati ve) 10/09/23 21:41 Urine Color Yellow (Yellow) 10/09/23 21:41 Urine Appearance Hazy (CLEAR) A 10/09/23 21:41 Urine pH 5 (5-7) 10/09/23 21:41 Ur Specific Gravit y 1.010 (1.005-1.0 30) 10/09/23 21:41 Urine Protein Trace (Negative) 10/09/23 21:41 Urine Glucose (UA) Norm (Normal) 10/09/23 21:41 Urine Ketones Negative (Negati ve) 10/09/23 21:41 Urine Blood Neg (Negative) 10/09/23 21:41 Urine Nitrate Negative (Negati ve) 10/09/23 21:41 Urine Bilirubin Neg (Negative) 10/09/23 21:41 Urine Urobilinogen Norm mg/dL (Negat mac) 10/09/23 21:41 Ur Leukocyte Baylee ase Trace (Negative) H 10/09/23 21:41 Urine RBC 0-4 /hpf (0-2) H 10/09/23 21:41 Urine WBC 5-10 /hpf (0-5) H 10/09/23 21:41 Ur Squamous Epith Cells 5-10 /hpf (0-5) H 10/09/23 21:41 Amorphous Sediment Not Reportable 10/09/23 21:41 Urine Bacteria Trace /hpf (NONE) 10/09/23 21:41 Salicylates < 0.3 mg/dL (3-10 ) L 10/09/23 19:25 Urine Opiates Scre en Negative ng/mL (N egative) 10/09/23 21:41 Acetaminophen < 5.0 ug/mL (10-3 0) L 10/09/23 19:25 Ur Barbiturates Sc reen Negative ng/mL (N egative) 10/09/23 21:41 Ur Phencyclidine S crn Negative ng/mL (N egative) 10/09/23 21:41 Ur Amphetamines Sc reen Negative ng/mL (N egative) 10/09/23 21:41 U Benzodiazepines Scrn Negative ng/mL (N egative) 10/09/23 21:41 Urine Cocaine Scre en Negative ng/mL (N egative) 10/09/23 21:41 U Marijuana (THC) Screen Negative ng/mL (N egative) 10/09/23 21:41 Ethyl Alcohol < 10 mg/dL (0-10) 10/09/23 19:25 Vitals: Last Vital Signs Temp 97.7 F 10/25/23 20:00 Pulse 87 10/26/23 05:54 Resp 18 10/26/23 05:54 BP 121/84 10/26/23 05:54 Pulse Ox 98 10/26/23 05:54 O2 Del Method Room Air 10/25/23 20:00 Discharge Plan Discharge Patient Disposition: Home Condition: Stable Prescriptions: New aripiprazole 15 mg tablet 15 mg PO DAILY 30 Days Qty: 30 1RF Continued epinephrine [EpiPen] 0.3 mg/0.3 mL auto-injector 0.3 mg IM Q10M PRN (Reason: anaphylaxis) Qty: 1 0RF Rx Instructions: for 2 doses Discharge Orders: Discharge Order (Routine); Ordered 10/26/23 Ordered By: Apolinar Palacio Referrals: [facility] [Other] (Call for any insurance questions or needs) [facility] [Outside] - 11/02/23 8:30 am (Initial intake for services with Gunnar) Mary Parks FNP [Staff Physician] - 10/27/23 2:20 pm Discharge Diet: Usual diet Discharge Activity: Resume usual activity Patient Instructions: Aripiprazole (By mouth) (Kell Castorena Discmelalena), Psychotic Disorder (DC), Opioid Safety Discharge Attestations NPU Time Spent in Discharge Care*: less than 30 min Specific Discharge Activities: Specific discharge activities: educating patient and documenting/other paperwork Coding Level of Care Code Acute Code for Chg Fwd Diagnoses Allergy to alpha-gal Z91.018 Tick bite of abdomen S30.861A; W57.XXXA
[2023-10-26 12:44] VITALS: BP 121/84; PULSE 87; RESP 18; O2SAT 98
== END 2023-10-26 16:11 | disposition home or self-care (01) | DRG 885 ==
LOC: ER 21:53 → NP 22:10
PROVIDERS: Admitting Provider Psychiatry & Neurology Psychiatry; Emergency Provider Emergency Medicine; Visit Provider Psychiatry & Neurology Psychiatry
DX: F23 Brief psychotic disorder (principal); F41.9 Anxiety disorder, unspecified; Z63.4 Disappearance and death of family member
CPT/HCPCS: 36415; 70450; 70460; 80053; 80306; 80307; 81001; 81025; 85025; 93005; 97150; 97165; 97167; 99285; Q9967

== ENCOUNTER 2023-10-29 19:48 | Inpatient (IN) | payer BC, SELFPAY ==
[2023-10-29 19:58] VITALS: BP 161/104; PULSE 84; RESP 14; TEMP 36.4; O2SAT 100; BMI 25.7
--- NOTE | 2023-10-29 20:14 | ED.C_ITS ---
HPI - Psych 2 General: Chief Complaint: Psychiatric Symptoms Stated Complaint: MHE Time Seen by Provider: 10/29/23 19:49 Source: patient Mode of arrival: ambulatory Limitations: no limitations History of Present Illness: 58-year-old female who had recently been admitted here for hallucination she did recently got out of the psych [facility] she states she still having some hallucinations her family brought her in because she was seeing her mother today and her mother is she feels like she may need her meds adjusted she denies SI or HI denies any worse improved factors Associated symptoms: Reports visual hallucinations; Deny depression Review of Systems 2 Const: Denies: fever(s), chills, body aches or change in appetite ENMT: Denies: throat pain or dental pain Card: Denies: chest pain Resp: Denies: dyspnea GI: Denies: abdominal pain, nausea, vomiting or diarrhea Musc: Denies: neck pain or back pain Skin/Breast: Denies: rash Neuro: Denies: headache(s) Psych: Reports: visual hallucinations; Denies: depression PFSH ED 2 PFSH: Social History Smoking and tobacco/nicotine status: former use of tobacco/nicotine Physical Exam 2 Const: COMMON NORMALS: no acute distress, patient oriented x3 and healthy appearing HENMT: COMMON NORMALS: normocephalic and atraumatic HEAD & SCALP: n ormocephalic and atraumatic Neck/C-Spine: COMMON NORMALS: full ROM and supple Chest: COMMONS NORMALS: normal inspection of the chest Resp: COMMON NORMALS: normal respiratory effort Cardio: COMMON NORMALS: regular rate, regular rhythm and No murmurs present (Cardio) RATE: regular rate RHYTHM: regular rhythm Extremity: COMMON NORMALS: normal to inspection and full ROM Neuro: COMMON NORMALS: patient oriented x3, moves all extremities and no focal motor deficits Psych: COMMON NORMALS: mental status grossly normal, Normal thought process present and cooperative THOUGHT PROCESS: Normal thought process present T HOUGHT CONTENT: Yes Hallucination(s) present Skin: COMMON NORMALS: no rashes or lesions noted and no wounds GENERAL SKIN EXAM: no rashes or lesions noted Course 2 Vital Signs: Vital signs: Vital Signs Temperature 97.6 F 10/29/23 19:58 Pulse Rate 84 10/29/23 19:58 Respiratory Rate 14 10/29/23 19:58 Blood Pressure 161/104 10/29/23 19:58 Pulse Oximetry 100 10/29/23 19:58 Oxygen Delivery Me thod Room Air 10/29/23 19:58 MDM - Psych Medical Decision Making Patient presents with hallucinations she is voluntarily being admitted to the [facility] she is medically cleared I spoke to Dr. Mcmullen who knows patient is excepted. Medical Records I reviewed the patient's medical records. Lab Data I reviewed the patient's lab results. 10/29/23 20:17 10/29/23 20:17 Laboratory Results WBC 9.56 10^3/uL (3.29-11.43) 10/29/23 20:17 RBC 4.41 10^6/uL (3.85-5.65) 10/29/23 20:17 Hgb 13.80 g/dL (11.27-16.99) 10/29/23 20:17 Hct 42.0 % (36-47) 10/29/23 20:17 MCV 95.2 fl (85-98) 10/29/23 20:17 MCH 31.3 pg (27-33) 10/29/23 20:17 MCHC 32.9 g/dL (30-55) 10/29/23 20:17 RDW 12.8 % (12.1-15.1) 10/29/23 20:17 Plt Count 273 10^3/cmm (157-399) 10/29/23 20:17 MPV 8.8 fL (7.4-10.4) 10/29/23 20:17 Neut % (Auto) 70.2 % 10/29/23 20:17 Lymph % (Auto) 21.7 % 10/29/23 20:17 [place] % (Auto) 5.9 % 10/29/23 20:17 Eos % (Auto) 1.4 % 10/29/23 20:17 Baso % (Auto) 0.5 % 10/29/23 20:17 Neut # (Auto) 6.72 10^3/uL (1.8-7.7) 10/29/23 20:17 Lymph # (Auto) 2.1 10^3/uL (0.8-4.8) 10/29/23 20:17 [place] # (Auto) 0.6 10^3/uL (0.2-0.9) 10/29/23 20:17 Eos # (Auto) 0.1 10^3/uL (0.0-0.8) 10/29/23 20:17 Baso # (Auto) 0.1 10^3/uL (0.0-0.1) 10/29/23 20:17 Nucleated RBC % (auto) 0 % 10/29/23 20:17 Nucleated RBCs # 0.0 /100WBC 10/29/23 20:17 No radiology studies performed this visit Discharge Plan Discharge Admit Provider: Devyn Mcmullen Condition: Stable Coding Level of Care Code ED Deputy Fire Chief for Amparo Bee
[2023-10-29 20:31] LABS: Basophils # 0.1 10^3/uL (0.0-0.1); Basophils % 0.5 %; Eosinophils # 0.1 10^3/uL (0.0-0.8); Eosinophils % 1.4 %; Lymphocytes # 2.1 10^3/uL (0.8-4.8); Lymphocytes % 21.7 %; Mean Corpuscular HGB Conc 32.9 g/dL (30-55); Mean Corpuscular Hemoglobin 31.3 pg (27-33); Mean Corpuscular Volume 95.2 fl (85-98); Mean Platelet Volume 8.8 fL (7.4-10.4); Monocytes # 0.6 10^3/uL (0.2-0.9); Monocytes % 5.9 %; Neutrophils # 6.72 10^3/uL (1.8-7.7); Neutrophils % 70.2 %; Nucleated Red Blood Cells % 0 %; Platelet Count 273 10^3/cmm (157-399); Red Blood Count 4.41 10^6/uL (3.85-5.65); Red Cell Distribution Width 12.8 % (12.1-15.1); White Blood Count 9.56 10^3/uL (3.29-11.43)
[2023-10-29 20:50] LABS: Acetaminophen < 5.0 ug/mL (10-30); Alanine Aminotransferase 30 U/L (0-33); Albumin Level 4.1 g/dL (3.5-5.2); Alcohol Level < 10 mg/dL (0-10); Alkaline Phosphatase 120 U/L (35-105); Anion Gap 12.5 (5-19); Aspartate Amino Transferase 26 U/L (0-32); Blood Urea Nitrogen 8 mg/dL (6-20); Calcium 9.7 mg/dL (8.5-10.5); Carbon Dioxide 30 mmol/L (22-29); Chloride 101 mmol/L (98-107); Creatinine Clr Calc Pharmacy 99.2255; Globulin 3.5 g/dL (1.3-4.6); Glomerular Filtration Rate 103.4 mL/min (90-130); Glucose 95 mg/dL (65-115); Osmolality Calculated 288 mOsm/kg (285-295); Potassium 3.5 mmol/L (3.5-5.1); Salicylate < 0.3 mg/dL (3-10); Sodium 140 mmol/L (136-145); Total Bilirubin 0.2 mg/dL (0.15-1.2); Total Protein 7.6 g/dL (6.6-8.7)
[2023-10-29 20:50] LABS: Amphetamines Screen Urine Negative (Negative); Barbiturates Screen Urine Negative (Negative); Benzodiazepines Screen Urine Negative (Negative); Cocaine Screen Urine Negative (Negative); Opiate Screen Urine Negative (Negative); PCP Screen Urine Negative (Negative); THC Screen Urine Negative (Negative)
[2023-10-29 21:02] VITALS: BP 149/93; PULSE 87; RESP 16; TEMP 36.5; O2SAT 94
--- NOTE | 2023-10-29 21:50 | PC.ADMIT ---
[address] [facility] [address] Admission Note: The patient,Abby Tomlinson,58 y/o, was given written information regarding hospital policies, unit procedures and contact persons. Patient's smoking status: former smoker.NON SMOKER Vital Signs - 8 hr 10/29/23 19:58 10/29/23 21:02 10/29/23 21:39 Temperature 97.6 F 97.7 F Pulse Rate 84 87 Respiratory Rate 14 16 Blood Pressure 161/104 149/93 Pulse Oximetry 100 94 Oxygen Delivery Method Room Air Room Air Room Air ADMITTED FROM ER VIA WHEELCHAIR, SECURITY AND ER STAFF AT 2101. PT HAS A GUARDIAN WHO IS ALFONZO COLLIN [phone], HER SISTER AND BROTHER IN LAW. PT WAS RECENTLY DISCHARGED FROM UNIT A FEW DAYS AGO. PT STATES SHE IS HERE DE TO BEING AT HOME AND I WAS SEEING MY MOM SITTING IN THE CHAIR, I KNOW SHE IS AND SHES REALLY NOT THERE. I'M JUST WANTING TO SEE HER, SO THAT'S WHY I'M SEEING HER. I DON'T SEE HER NOW SINCE I'VE BEEN HERE. I'M NOT GOING TO LIE TO MY SISTER AND TELL HER I'M NOT SEEING HER. PT DENIES PAIN. DENIES SI/HI AND AVH AT THIS TIME. PT REPORTS SHE HAS BEEN TAKING HER ABILIFY AND REPORTS SHE WAS NOT SET UP FOR AN APT ANYWHERE TO CONTINUE PSYCHIATRIC TREATMENT. REPORTS BM ON 10/28/23. PT DRESSED OUT INTO SCRUBS, SKIN ASSESSMENT COMPLETED NO SKIN ISSUES WERE OBSERVED. PT IS CALM AND COOPERATIVE. STATES SHE IS GLAD TO SEE EVERYONE AGAIN. MOOD IS UPBEAT AND HAPPY. RATES ANXIETY AND DEPRESSION 0/10. PT WAS ORIENTATED TO UNIT, SAFETY RULES AND GUIDELINES AND TO NOT TOUCH OTHER PTS. PT VERBALIZED UNDERSTANDING. ALL QUESTIONS WERE ANSWERED AND SUPPORT WAS VOICED.
[2023-10-29 22:00] VITALS: RESP 17
[2023-10-30 06:00] VITALS: BP 93/56; PULSE 70; RESP 16; TEMP 36.8; O2SAT 96
[2023-10-30] MEDS: ARIPiprazole 10 mg Tablet 15 MG PO (08:05)
[2023-10-30 14:00] VITALS: BP 125/80; PULSE 87; RESP 14; O2SAT 98
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
[2023-10-30 20:39] VITALS: BP 109/69; PULSE 81; RESP 18; TEMP 36.6; O2SAT 98
[2023-10-31 06:00] VITALS: BP 131/86; PULSE 76; RESP 16; O2SAT 96
[2023-10-31] MEDS: ARIPiprazole 10 mg Tablet 20 MG PO (08:02)
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
[2023-10-31 14:00] VITALS: BP 125/86; PULSE 90; RESP 16; TEMP 36.5; O2SAT 98
[2023-10-31] MEDS: naproxen 500 mg Tablet 250 MG PO (17:31)
[2023-10-31 20:13] VITALS: BP 120/81; PULSE 84; RESP 16; TEMP 36.3; O2SAT 98
[2023-11-01 06:00] VITALS: BP 117/75; PULSE 70; RESP 16; TEMP 36.3; O2SAT 94
[2023-11-01] MEDS: ARIPiprazole 10 mg Tablet 20 MG PO (08:49)
[2023-11-01 14:00] VITALS: BP 114/82; PULSE 83; RESP 16; TEMP 36.8; O2SAT 99
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
[2023-11-01] MEDS: donepezil 5 MG Tablet PO (20:08)
[2023-11-01 20:26] VITALS: BP 133/85; PULSE 83; RESP 18; TEMP 36.4; O2SAT 94
[2023-11-02 06:00] VITALS: BP 149/91; PULSE 90; RESP 18; TEMP 36.3; O2SAT 95
[2023-11-02] MEDS: ARIPiprazole 10 mg Tablet 20 MG PO (08:08)
[2023-11-02 12:45] VITALS: BP 128/82; PULSE 85; RESP 14; TEMP 36.3; O2SAT 97
[2023-11-02] MEDS: donepezil 5 MG Tablet PO (15:35)
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
--- NOTE | 2023-11-02 18:21 | PC.NURSE ---
pt sister arrived to unit dropping off nike slide for pt. pt sister brought home pt wallet and cell phone with pt permission.
[2023-11-02 20:13] VITALS: BP 133/86; PULSE 85; RESP 18; TEMP 36.3; O2SAT 96
[2023-11-03 06:00] VITALS: BP 117/76; PULSE 91; RESP 16; TEMP 36.5; O2SAT 95
[2023-11-03] MEDS: donepezil 5 MG Tablet PO (08:56)
[2023-11-03] MEDS: ARIPiprazole 10 mg Tablet 20 MG PO (08:56)
--- NOTE | 2023-11-03 09:28 | PC.NURSE ---
Patient very confused this morning. She approached the nurses' station with a menu and stated, I didn't get any of the food on my menu. She then presented this nurse with another patient's menu. This RN told her it wasn't her menu, as she has alpha-gal and is not able to eat anything that is listed on the menu. She acknowledged this, left the nurses' station, then returned to say she couldn't find the patient whose menu she had. This nurse then told her it was okay because he had already eaten and didn't need his menu, so she could throw it away or return it to his tray. She agreed to do this, but returned once again to ask a AGILE BUSINESS ANALYST, once again, why she didn't receive any of the food listed on the other patient's menu. During morning assessment patient remained confused, stating that she believed she was in [place], [place]. She was also unable to state the month or day. Patient endorsed some soreness in her shoulder. This nurse asked if this was normal for her or new pain. She replied, new. I think it's just because of how the toilets are here.
[2023-11-03 14:00] VITALS: BP 129/84; PULSE 94; RESP 16; TEMP 36.8; O2SAT 97
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
--- NOTE | 2023-11-03 17:21 | PC.NURSE ---
Phone number of sister obtained. Sultana Paredes's number is
[2023-11-03 20:47] VITALS: BP 143/63; PULSE 94; RESP 16; TEMP 36.3; O2SAT 98
[2023-11-04 06:00] VITALS: BP 134/85; PULSE 81; RESP 15; TEMP 36.4; O2SAT 93
[2023-11-04] MEDS: donepezil 5 MG Tablet PO (08:42)
[2023-11-04] MEDS: ARIPiprazole 10 mg Tablet 15 MG PO (08:42)
[2023-11-04] MEDS: acetaminophen 325 mg Tablet 650 MG PO (12:59)
[2023-11-04 14:00] VITALS: BP 134/87; PULSE 81; RESP 16; TEMP 36.6; O2SAT 98
--- NOTE | 2023-11-04 15:24 | P.NPUPN_ITS ---
Subjective NPU 2 Subjective: 58-year-old female admitted with psychos is and difficulties with managing self- care readmitted after an extended hospitalization here due to the presence of visual and auditory hallucinations. Patient had appeared very confused yesterday and today. She had appeared at times lost she had been seen going into the wrong room. She had been attempting to hide her confusion from staff but stated that she was worried about her problems with memory. The patient reported that she felt isolated here. She had not had a visit from her sister today. She had stated that she would like to go to a home where her needs could be met. Mental Status Exam 2 MSE Comments: This is a slender pleasant white female in hospital scrubs and gigantic spectacles with poor grooming and fair eye contact. No abnormal movements except for mild psychomotor retardation. She was cooperative with exam in mild distress. Speech was decreased in rate and normal volume. Mood described as not good. Her affect was mood congruent and dysphoric. Thought process was linear and organized. Thought content: Patient denies suicidal or homicidal ideation, there were no delusions reported and she reported no auditory or visual hallucinations. She did not appear to be responding to internal stimuli. She was alert to person only today. She could not recall the name of this place. 0/3 after 5 minutes recalled word. Abstraction including similarities was poor. Insight appears poor, judgment is impaired, impulse control is poor. Impaired attention as well with inability to perform serial 7's or serial 3's at all. Some mild cogwheel rigidity appreciated billaterally. Vitals/I&O/Wt Last Vital Signs Temp 98 F 11/04/23 14:00 Pulse 81 11/04/23 14:00 Resp 16 11/04/23 14:00 BP 134/87 11/04/23 14:00 Pulse Ox 98 11/04/23 14:00 O2 Del Method Room Air 11/04/23 14:00 Data NPU 10/29/23 20:17 10/29/23 20:17 A&P Assessment and plan (1) Dementia with psychosis: (2) Tick bite of abdomen: (3) Allergy to alpha-gal: Plan This is a 58-year-old white female who presents with anxiety and recent significant life stressors including the loss of both parents and a cousin's suicide. No history of psychiatric hospitalization or medication. Patient denies suicidal ideation but family members have expressed concern about potential self-harm. Patient denies any hallucinations or paranoia. Patient's behavior has been described as erratic and disruptive, leading to job loss. Will consider initiation of medication. 1. Continue current medication. Reduce Abilify to 15 mg p.o. daily due to muscle stiffness. . Continue Donazepil 5mg daily. 2. Continue every 15 minute checks for safety. 3. Encourage individual, group and milieu therapies. 4. Obtain collateral information to determine whether there has been improvement on her subtle symptomatology. 5. Level 2 complete, guardianship complete, Patient did poorly in interview regarding placement but it is necessary, unable to return to anywhere but locked facility. Early dementia 6. CT head-nonspecific. 7. Patient needs to go to locked facility. Involuntary Hold Information 2 96 Hour Hold: 96 Hour Involuntary Admission: No 96 Hour Hold Ending Date: 0 10/29/23 96 Hour Hold Ending Time: 21:02 Attestations NPU 2 Medical Necessity Statement*: Inpatient hospitalization is medically necessary and the clinically appropriate intervention at this time. We will monitor medications and make changes as indicated. Her likely length of stay 5-10 days. Coding Level of Care Code Acute Code for Chg Fwd Diagnoses Dementia with psychosis F03.92 Tick bite of abdomen S30.861A; W57.XXXA Allergy to alpha-gal Z91.018
[2023-11-04 21:03] VITALS: BP 136/94; PULSE 79; RESP 18; TEMP 36.8; O2SAT 100
[2023-11-05 06:00] VITALS: BP 125/81; PULSE 85; RESP 18; TEMP 36.6; O2SAT 94
[2023-11-05] MEDS: ARIPiprazole 10 mg Tablet 15 MG PO (08:47)
[2023-11-05] MEDS: donepezil 5 MG Tablet PO (08:47)
[2023-11-05] MEDS: acetaminophen 325 mg Tablet 650 MG PO (10:59)
--- NOTE | 2023-11-05 11:02 | PC.NURSE ---
administered acetaminophen 650mg to patient for right side pain. Patient was crying in the [place] after group. OT asked patient for what was wrong. Patient stated that she was having right side pain. Patient rates pain 7/10. Patient states that the pain is intermittent for the past week. Patient denies pain radiation. Will notify doctor.
[2023-11-05 13:38] VITALS: BP 106/71; PULSE 76; RESP 16; TEMP 36.6; O2SAT 98
--- NOTE | 2023-11-05 16:17 | P.NPUPN_ITS ---
Subjective NPU 2 Subjective: Patient presented today reporting that she is doing okay. She is not happy that she is back but she understands she needs to be here. She denied any issues with her medication at this time. We discussed working with her family on options and she understood this. She denied any side effects of the medication and reports that she hopes to be out of here sooner rather than later. Mental Status Exam 2 MSE Comments: This is a slender pleasant white female in hospital scrubs with big dark glasses with limited grooming and fair eye contact. No abnormal movements except for mild psychomotor retardation. She was cooperative with exam in mild distress. Speech was decreased in rate and normal volume. Mood described as okay. Her affect was mood congruent.. Thought process was linear and organized. Thought content: Patient denies suicidal or homicidal ideation, there were no delusions reported and she reported no auditory or visual hallucinations. She did not appear to be responding to internal stimuli. She was alert to person only today. She could not recall the name of this place. Abstraction including similarities was poor. Insight appears poor, judgment is impaired, impulse control is poor. Impaired attention as well with inability to perform serial 7's or serial 3's at all. Some mild cogwheel rigidity appreciated bilaterally. Vitals/I&O/Wt Last Vital Signs Temp 98 F 11/05/23 13:38 Pulse 76 11/05/23 13:38 Resp 16 11/05/23 13:38 BP 106/71 11/05/23 13:38 Pulse Ox 98 11/05/23 13:38 O2 Del Method Room Air 11/05/23 13:38 Data NPU 11/05/23 16:07 10/29/23 20:17 A&P Assessment and plan (1) Dementia with psychosis: (2) Tick bite of abdomen: (3) Allergy to alpha-gal: Plan This is a 58-year-old white female who presents with anxiety and recent significant life stressors including the loss of both parents and a cousin's suicide. No history of psychiatric hospitalization or medication. Patient denies suicidal ideation but family members have expressed concern about potential self-harm. Patient denies any hallucinations or paranoia. Patient's behavior has been described as erratic and disruptive, leading to job loss. Will consider initiation of medication. 1. Continue current medication. Reduce Abilify to 15 mg p.o. daily due to muscle stiffness. . Continue Donazepil 5mg daily. 2. Continue every 15 minute checks for safety. 3. Encourage individual, group and milieu therapies. 4. Obtain collateral information to determine whether there has been improvement on her subtle symptomatology. 5. Level 2 complete, guardianship complete, Patient did poorly in interview regarding placement but it is necessary, unable to return to anywhere but locked facility. Early dementia 6. CT head-nonspecific. 7. Patient needs to go to locked facility. Involuntary Hold Information 2 96 Hour Hold: 96 Hour Involuntary Admission: No 96 Hour Hold Ending Date: 0 10/29/23 96 Hour Hold Ending Time: 21:02 Attestations NPU 2 Medical Necessity Statement*: Inpatient hospitalization is medically necessary and the clinically appropriate intervention at this time. We will monitor medications and make changes as indicated. Her likely length of stay 5-10 days. Coding Level of Care Code Acute Code for g Fwd Diagnoses Dementia with psychosis F03.92 Tick bite of abdomen S30.861A; W57.XXXA Allergy to alpha-gal Z91.018
[2023-11-05 16:58] LABS: Basophils % 0.4 %; Eosinophils # 0.2 10^3/uL (0.0-0.8); Eosinophils % 2.1 %; Hematocrit 41.7 % (36-47); Lymphocytes # 1.9 10^3/uL (0.8-4.8); Lymphocytes % 26.6 %; Mean Corpuscular HGB Conc 32.9 g/dL (30-55); Mean Corpuscular Volume 97.4 fl (85-98); Mean Platelet Volume 8.8 fL (7.4-10.4); Monocytes # 0.5 10^3/uL (0.2-0.9); Monocytes % 7.4 %; Neutrophils % 63.2 %; Nucleated Red Blood Cells % 0 %; Platelet Count 305 10^3/cmm (157-399); Red Blood Count 4.28 10^6/uL (3.85-5.65); Red Cell Distribution Width 13.2 % (12.1-15.1); White Blood Count 7.28 10^3/uL (3.29-11.43)
[2023-11-05 17:07] LABS: Alanine Aminotransferase 20 U/L (0-33); Albumin Level 4.2 g/dL (3.5-5.2); Alkaline Phosphatase 136 U/L (35-105); Amylase 71 U/L (28-100); Aspartate Amino Transferase 19 U/L (0-32); Globulin 3.2 g/dL (1.3-4.6); Lipase 29 U/L (13-60); Total Bilirubin 0.2 mg/dL (0.15-1.2); Total Protein 7.4 g/dL (6.6-8.7)
[2023-11-05 21:07] VITALS: BP 148/97; PULSE 84; RESP 18; TEMP 36.4; O2SAT 96
[2023-11-06 06:00] VITALS: BP 123/80; PULSE 89; RESP 18; TEMP 36.3; O2SAT 94
[2023-11-06] MEDS: donepezil 5 MG Tablet PO (08:53)
[2023-11-06] MEDS: ARIPiprazole 10 mg Tablet 15 MG PO (08:53)
[2023-11-06] MEDS: acetaminophen 325 mg Tablet 650 MG PO ×2 (08:54→16:23)
--- NOTE | 2023-11-06 09:00 | PC.NURSE ---
Denies avh and si/hi. Also denies feelings of anxiety or depression. Patient does appear confused this morning, standing at her doorway with a blank expression on her face. When asked if she knew what city she was in she replied, [place], [place]. Sorry, that's not right...BRITTNI Mcpherson.
[2023-11-06 14:00] VITALS: BP 148/86; PULSE 96; RESP 14; TEMP 36.3; O2SAT 95
--- NOTE | 2023-11-06 15:56 | P.NPUPN_ITS ---
Subjective NPU 2 Subjective: Patient presented today reporting that she is doing okay. She continues to be pleasant but somewhat frustrated when given serial sevens. We discussed planning on getting a neurology consult and the possibility of a discharge location at the beginning of the week. She denied any side effects to the medication. Mental Status Exam 2 MSE Comments: This is a slender pleasant white female in hospital scrubs with big dark glasses with limited grooming and fair eye contact. No abnormal movements except for mild psychomotor retardation. She was cooperative with exam in mild distress. Speech was decreased in rate and normal volume. Mood described as okay. Her affect was mood congruent.. Thought process was linear and organized. Thought content: Patient denies suicidal or homicidal ideation, there were no delusions reported and she reported no auditory or visual hallucinations. She did not appear to be responding to internal stimuli. She was alert to person only today. She could not recall the name of this place. Abstraction including similarities was poor. Insight appears poor, judgment is impaired, impulse control is poor. Impaired attention as well with inability to perform serial 7's or serial 3's at all reported at 100-7 was 83 and when asked to subtract another 7 she gave the answer as 90. Some mild cogwheel rigidity appreciated bilaterally. Vitals/I&O/Wt Last Vital Signs Temp 97.4 F L 11/06/23 06:00 Pulse 89 11/06/23 06:00 Resp 18 11/06/23 06:00 BP 123/80 11/06/23 06:00 Pulse Ox 94 11/06/23 06:00 O2 Del Method Room Air 11/06/23 06:00 Data NPU 11/05/23 16:07 10/29/23 20:17 A&P Assessment and plan (1) Dementia with psychosis: (2) Tick bite of abdomen: (3) Allergy to alpha-gal: Plan This is a 58-year-old white female who presents with anxiety and recent significant life stressors including the loss of both parents and a cousin's suicide. No history of psychiatric hospitalization or medication. Patient denies suicidal ideation but family members have expressed concern about potential self-harm. Patient denies any hallucinations or paranoia. Patient's behavior has been described as erratic and disruptive, leading to job loss. Will consider initiation of medication. 1. Continue current medication. Reduced Abilify to 15 mg p.o. daily due to muscle stiffness. . Continue Donazepil 5mg daily. 2. Continue every 15 minute checks for safety. 3. Encourage individual, group and milieu therapies. 4. Obtain collateral information to determine whether there has been improvement on her subtle symptomatology. 5. Level 2 complete, guardianship complete, Patient did poorly in interview regarding placement but it is necessary, unable to return to anywhere but locked facility. Early dementia 6. CT head-nonspecific. 7. Patient needs to go to locked facility. 8. Will get neurology consult with likely execution of consult on Thursday if there is limited coverage. Possible discharge at the beginning of the week Involuntary Hold Information 2 96 Hour Hold: 96 Hour Involuntary Admission: No 96 Hour Hold Ending Date: 0 10/29/23 96 Hour Hold Ending Time: 21:02 Attestations NPU 2 Medical Necessity Statement*: Inpatient hospitalization is medically necessary and the clinically appropriate intervention at this time. We will monitor medications and make changes as indicated. Her likely length of stay 5-10 days. Coding Level of Care Code Acute Code for [facility] Diagnoses Dementia with psychosis F03.92 Tick bite of abdomen S30.861A; W57.XXXA Allergy to alpha-gal Z91.018
[2023-11-06 20:48] VITALS: BP 147/55; PULSE 98; RESP 16; TEMP 36.6; O2SAT 94
[2023-11-06] MEDS: trazodone 50 mg Tablet PO (21:06)
--- NOTE | 2023-11-07 01:44 | PC.NURSE ---
DR. LAIRD ORDERED CONSULT FOR NEUROLOGY DUE TO DEMENTIA WITH PSYCHOSIS. ORDER PLACED. RN/ WILL CONTACT NEUROLOGIST THURSDAY AFTER THE WEEKEND TO SEE PT.
[2023-11-07 06:00] VITALS: BP 138/80; PULSE 90; RESP 18; O2SAT 94
[2023-11-07] MEDS: donepezil 5 MG Tablet PO (08:11)
[2023-11-07] MEDS: ARIPiprazole 10 mg Tablet 15 MG PO (08:11)
[2023-11-07] MEDS: acetaminophen 325 mg Tablet 650 MG PO (12:10)
[2023-11-07] MEDS: benztropine 1 mg Tablet PO (12:12)
--- NOTE | 2023-11-07 12:14 | PC.NURSE ---
PT UP AT DESK REQUESTING TYLENOL FOR BACK PAIN AND STIFFNESS. PT HAS HAND AND ARM SHAKING AND SHUFFLE WALK. PT APPEARS TO BE VERY STIFF. ADMINISTERED COGENTIN PRN MEDICATION.
[2023-11-07] MEDS: naproxen 500 mg Tablet 250 MG PO (13:56)
[2023-11-07 14:00] VITALS: BP 154/88; PULSE 91; RESP 14; O2SAT 92
--- NOTE | 2023-11-07 14:07 | PC.NURSE ---
pt came out of her room into hallway , very tearful. states she is scared and doesnt know what is happening to her she feels like she is getting worse. this colorist photography had patient sit down gave her some kleenex pt crying, with uncontroled drool. notified Dr. dubon and ua ordered on pt.
[2023-11-07 15:05] LABS: Basophils % 0.4 %; Eosinophils # 0.2 10^3/uL (0.0-0.8); Eosinophils % 2.5 %; Hematocrit 40.4 % (36-47); Lymphocytes % 27.2 %; Mean Corpuscular HGB Conc 32.7 g/dL (30-55); Mean Corpuscular Hemoglobin 31.5 pg (27-33); Mean Corpuscular Volume 96.4 fl (85-98); Monocytes # 0.5 10^3/uL (0.2-0.9); Monocytes % 7.4 %; Neutrophils # 4.48 10^3/uL (1.8-7.7); Neutrophils % 62.4 %; Nucleated Red Blood Cells % 0 %; Platelet Count 291 10^3/cmm (157-399); Red Blood Count 4.19 10^6/uL (3.85-5.65); Red Cell Distribution Width 13.1 % (12.1-15.1); White Blood Count 7.18 10^3/uL (3.29-11.43)
[2023-11-07 15:17] LABS: Add Urine Microscopic? YES; Bilirubin Urine Neg (Negative); Blood Urine Trace (Negative); Glucose Urine UA Norm (Normal); Ketones Urine Negative (Negative); Leukocyte Esterase Urine Negative (Negative); Nitrate Urine Negative (Negative); Protein Urine Neg (Negative); Specific Gravity, Urine 1.015 (1.005-1.030); Urine Appearance Clear (CLEAR); Urine Color Straw (Yellow); Urobilinogen Urine Norm (Negative); pH Urine 5 (5-7)
[2023-11-07 15:18] LABS: Add Urine Culture? No; Bacteria Urine TRACE /hpf; Mucus Urine TRACE /hpf; RBC Urine RARE /hpf (0-2); Squamous Epithelial Cell Urine 0-4 /hpf (0-5)
[2023-11-07 15:28] LABS: Alanine Aminotransferase 14 U/L (0-33); Alkaline Phosphatase 109 U/L (35-105); Anion Gap 13.1 (5-19); Aspartate Amino Transferase 23 U/L (0-32); Blood Urea Nitrogen 14 mg/dL (6-20); Calcium 9.5 mg/dL (8.5-10.5); Carbon Dioxide 28 mmol/L (22-29); Chloride 103 mmol/L (98-107); Globulin 3.3 g/dL (1.3-4.6); Glomerular Filtration Rate 86.6 mL/min (90-130); Glucose 111 mg/dL (65-115); Osmolality Calculated 291 mOsm/kg (285-295); Potassium 4.1 mmol/L (3.5-5.1); Sodium 140 mmol/L (136-145); Total Bilirubin 0.3 mg/dL (0.15-1.2); Total Protein 7.3 g/dL (6.6-8.7)
--- NOTE | 2023-11-07 17:53 | P.NPUPN_ITS ---
Subjective NPU 2 Subjective: Patient presented today reporting that she is feeling a little better but does report having some pain issues. We discussed the risks, benefits and alternatives of rechecking labs including a urinalysis. She continues to deny any issues with the medication. She denied any side effects except for the stiffness from the medication. She understands the plan for neurology evaluation on Thursday. Mental Status Exam 2 MSE Comments: This is a slender pleasant white female in hospital scrubs with big dark glasses with limited grooming and fair eye contact. No abnormal movements except for mild psychomotor retardation. She was cooperative with exam in mild distress. Speech was decreased in rate and normal volume. Mood described as okay. Her affect was mood congruent.. Thought process was linear and organized. Thought content: Patient denies suicidal or homicidal ideation, there were no delusions reported and she reported no auditory or visual hallucinations. She did not appear to be responding to internal stimuli. She was alert to person only today. She could not recall the name of this place. Abstraction including similarities was poor. Insight appears poor, judgment is impaired, impulse control is poor. Impaired attention as well with inability to perform serial 7's or serial 3's at all reported at 100-7 was 83 and when asked to subtract another 7 she gave the answer as 90. Some mild cogwheel rigidity appreciated bilaterally. Vitals/I&O/Wt Last Vital Signs Temp 97.8 F 11/06/23 20:48 Pulse 91 11/07/23 14:00 Resp 14 11/07/23 14:00 BP 154/88 11/07/23 14:00 Pulse Ox 92 11/07/23 14:00 O2 Del Method Room Air 11/07/23 06:00 Data NPU 11/07/23 14:26 11/07/23 14:26 A&P Assessment and plan (1) Dementia with psychosis: (2) Tick bite of abdomen: (3) Allergy to alpha-gal: Plan This is a 58-year-old white female who presents with anxiety and recent significant life stressors including the loss of both parents and a cousin's suicide. No history of psychiatric hospitalization or medication. Patient denies suicidal ideation but family members have expressed concern about potential self-harm. Patient denies any hallucinations or paranoia. Patient's behavior has been described as erratic and disruptive, leading to job loss. Will consider initiation of medication. 1. Continue current medication. Reduced Abilify to 15 mg p.o. daily due to muscle stiffness. . Continue Donazepil 5mg daily. 2. Continue every 15 minute checks for safety. 3. Encourage individual, group and milieu therapies. 4. Obtain collateral information to determine whether there has been improvement on her subtle symptomatology. 5. Level 2 complete, guardianship complete, Patient did poorly in interview regarding placement but it is necessary, unable to return to anywhere but locked facility. Early dementia 6. CT head-nonspecific. 7. Patient needs to go to locked facility. 8. Will get neurology consult with likely execution of consult on Thursday if there is limited coverage. Possible discharge at the beginning of the week Involuntary Hold Information 2 96 Hour Hold: 96 Hour Involuntary Admission: No 96 Hour Hold Ending Date: 0 10/29/23 96 Hour Hold Ending Time: 21:02 Attestations NPU 2 Medical Necessity Statement*: Inpatient hospitalization is medically necessary and the clinically appropriate intervention at this time. We will monitor medications and make changes as indicated. Her likely length of stay 5-10 days. Coding Level of Care Code Acute Code for [facility] [place] Fwd Diagnoses Dementia with psychosis F03.92 Tick bite of abdomen S30.861A; W57.XXXA Allergy to alpha-gal Z91.018
[2023-11-07 20:03] VITALS: BP 143/77; PULSE 77; RESP 15; TEMP 36.8; O2SAT 95
[2023-11-08 06:00] VITALS: BP 101/66; PULSE 68; RESP 15; TEMP 36.6; O2SAT 97
[2023-11-08] MEDS: donepezil 5 MG Tablet PO (08:33)
[2023-11-08] MEDS: benztropine 1 mg Tablet PO (08:33)
[2023-11-08] MEDS: ARIPiprazole 10 mg Tablet 15 MG PO (08:33)
--- NOTE | 2023-11-08 11:12 | P.NPUPN_ITS ---
Subjective NPU 2 Subjective: Patient presented today reporting that she was feeling okay. We discussed the fact that the neurologist would be by to discuss things with her and that we would value her opinion about medication implications. She was interested in this approach. She denied any side effects from the medications outside of the possible stiffness from the aripiprazole. We agreed we would continue to consider decreases in the medication if warranted. Mental Status Exam 2 MSE Comments: This is a slender pleasant white female in hospital scrubs with big dark glasses with limited grooming and fair eye contact. No abnormal movements except for mild psychomotor retardation. She was cooperative with exam in mild distress. Speech was decreased in rate and normal volume. Mood described as okay. Her affect was mood congruent. Thought process was linear and organized. Thought content: Patient denies suicidal or homicidal ideation, there were no delusions reported and she reported no auditory or visual hallucinations. She did not appear to be responding to internal stimuli. She was alert to person only today. She could not recall the name of this place. Abstraction including similarities was poor. Insight appears poor, judgment is impaired, impulse control is poor. Impaired attention as well with inability to perform serial 7's or serial 3's at all reported at 100-7 was 83 and when asked to subtract another 7 she gave the answer as 90. Some mild cogwheel rigidity appreciated bilaterally. Vitals/I&O/Wt Last Vital Signs Temp 97.9 F 11/08/23 06:00 Pulse 68 11/08/23 06:00 Resp 15 11/08/23 06:00 BP 101/66 11/08/23 06:00 Pulse Ox 97 11/08/23 06:00 O2 Del Method Room Air 11/08/23 06:00 Weight last 48 hrs Weight 72.121 kg Data NPU 11/07/23 14:26 11/07/23 14:26 A&P Assessment and plan (1) Dementia with psychosis: (2) Tick bite of abdomen: (3) Allergy to alpha-gal: Plan This is a 58-year-old white female who presents with anxiety and recent significant life stressors including the loss of both parents and a cousin's suicide. No history of psychiatric hospitalization or medication. Patient denies suicidal ideation but family members have expressed concern about potential self-harm. Patient denies any hallucinations or paranoia. Patient's behavior has been described as erratic and disruptive, leading to job loss. Will consider initiation of medication. 1. Continue current medication. Reduce Abilify to 10 mg p.o. daily due to muscle stiffness with plan to discontinue. Plan to switch to seroquel 25 mg po bid . Continue Donazepil 5mg daily. But change to galantamine 4mg po bid tomorrow tomorrow. Also start celexa 20 mg qam. 2. Continue every 15 minute checks for safety. 3. Encourage individual, group and milieu therapies. 4. Obtain collateral information to determine whether there has been improvement on her subtle symptomatology. 5. Level 2 complete, guardianship complete, Patient did poorly in interview regarding placement but it is necessary, unable to return to anywhere but locked facility. Early dementia 6. CT head-nonspecific. 7. Patient needs to go to locked facility. 8. Appreciate neurology consult.. Possible discharge at the beginning of the week Involuntary Hold Information 2 96 Hour Hold: 96 Hour Involuntary Admission: No 96 Hour Hold Ending Date: 0 10/29/23 96 Hour Hold Ending Time: 21:02 Attestations NPU 2 Medical Necessity Statement*: Inpatient hospitalization is medically necessary and the clinically appropriate intervention at this time. We will monitor medications and make changes as indicated. Her likely length of stay 5-10 days. Coding Level of Care Code Acute Code for [facility] Diagnoses Dementia with psychosis F03.92 Tick bite of abdomen S30.861A; W57.XXXA Allergy to alpha-gal Z91.018
--- NOTE | 2023-11-08 12:14 | PC.NURSE ---
assisted pt to open her door, pt appears to be unable to figure out the process of opening the door by pushing in the handle.
--- NOTE | 2023-11-08 13:52 | P.CONIM_ITS ---
Providers/Reason For Consult 2 Consulting Physician/Specialty*: Dr. Mcmullen Reason for Consult*: altered Attending Physician: Devyn Mcmullen MD History of Present Illness History of Present Illness Abby Tomlinson is a 58 year old woman last seen in the clinic by Dr. Kirby for routine care in February. At that time she was running 5 miles a day and appeared very healthy. She was brought here by law enforcement with a court order because of erratic behavior and paranoia, believing herself to be working for the [employer] and that people were after her. She had several life stresses including the suicide by cousin. She lost both of her parents within 2 weeks. She has been here since 10/09/2023 and has remained somewhat obtunded. She could not answer mental status questions well, her short-term recall was poor and Dr. Mcmullen was concerned that she might be dementing. Her story is complicated by the fact that she lives alone with no children. Hoang says she has had mental problems for at least a year. She has not been running for 2 years. Her deteriorioration has been accelerated over the last 6 months. She has always had a sparky personality and emotional personality. Her father of Alzheimer's. Hoang and Sultana are coguardians and have looked at nursing homes locally. They know that she will need NH for her safety. I talked initially with her [id number] and then with her sister, Sultana. Sultana has been aware for at least 2 years that Abby was having problems. When her parents 2 years ago she had trouble trying to use her phone. She lost her job and could not find another 1. She lived alone and so it was difficult for the family to figure out what to do as they work full-time. 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 She has not hallucinated. She has been paranoid and thought the people were after her. She inherited some money from her parents and spent $150,000 writing cashiers checks for scams that were perpetrated upon her. She recognizes that she has a problem. She knows that she is demented. She wonders why that happened because she has always been a fitness buff. She is in the [place] [employer] [facility] for running. She worked at [employer] for 30 years. Review of Systems 2 Const: Denies: fever(s), chills, body aches or change in appetite ENMT: Denies: throat pain or dental pain Card: Denies: chest pain Resp: Denies: dyspnea GI: Denies: abdominal pain, nausea, vomiting or diarrhea Musc: Denies: neck pain or back pain Skin/Breast: Denies: rash Neuro: Reports: difficulty walking (She is having more problems with taking little steps); Denies: headache(s) or weakness in extremities Psych: Reports: visual hallucinations; Denies: depression Medications/Allergies Home Medications Medication Instructions Recorded Confirmed Last Taken Type epinephrine 0.3 mg/0.3 mL 0.3 mg (0.3 mL) IM Q10M PRN 01/31/22 10/29/23 Unknown Rx injection, auto-injector (EpiPen) anaphylaxis #1 ea aripiprazole 15 mg tablet (Abilify) 15 mg PO DAILY 10/29/23 10/29/23 Unknown History Allergies Allergy/AdvReac Type Severity Reaction Status Date / Time Alpha-Gal Allergy ALGY-Anaphy Verified 10/09/23 22:20 (Vjhifrenk-Vpqpb-0,3-Gala laxis Current Medications Generic Name Dose Route Start Last Admin Trade Name Freq PRN Reason Stop Dose Admin Acetaminophen 650 mg 11/03/23 09:10 11/07/23 12:10 Acetaminophen 325 Mg Tablet PO 650 mg Q4H PRN Administration MILD PAIN OR INCREASE TEMP Aripiprazole 15 mg 11/04/23 09:00 11/08/23 08:33 Aripiprazole 10 Mg Tablet PO 15 mg DAILY MARÍA Administration Benztropine Mesylate 1 mg 10/29/23 21:02 11/08/23 08:33 Benztropine 1 Mg Tablet PO 1 mg BID PRN Administration Mild Extrapyramidal symptoms Donepezil HCl 5 mg 11/02/23 14:30 11/08/23 08:33 Donepezil 5 Mg Tablet PO 5 mg DAILY MARÍA Administration Naproxen 250 mg 10/30/23 16:58 11/07/23 13:56 Naproxen 500 Mg Tablet PO 250 mg Q12H PRN Administration PAIN Trazodone HCl 50 mg 10/29/23 21:02 11/06/23 21:06 Trazodone 50 Mg Tablet PO 50 mg BEDTIME PRN Administration SLEEP PFSH Acute 2 PFSH: Social History Smoking and tobacco/nicotine status: former use of tobacco/nicotine Vitals/I&O/Wt Last Vital Signs Temp 97.9 F 11/08/23 06:00 Pulse 68 11/08/23 06:00 Resp 15 11/08/23 06:00 BP 101/66 11/08/23 06:00 Pulse Ox 97 11/08/23 06:00 O2 Del Method Room Air 11/08/23 06:00 Weight last 48 hrs Weight 159 lb Physical Exam 2 Narrative: GENERAL: Extremely fit appearing young woman. MENTAL STATUS: Kaiden Cognitive Assessment: She was pleasant and very engaging. She had good insight. She recognizes that she has a significant memory problem. Visuospatial/executive: 2/5 Namin/3 Memory: 4/0 Memory: 3/0 Attention: Digit recall: 2/2 Attention: Tap for the letter A: 0/1 Attention: Serial subtraction: 0/3 Language: Repetition: 0/2 Language: Fluency: 0/1 Abstraction: 0/2 Delayed recall: 0/5 With clue 1/0 Multiple-choice clue 0/0 Orientation: 4/6 she said she was sort of in [place] but sort of in [place]. She thought it was Thursday. It is Thursday. Total score: 9/30 Interpretation: Profound multifocal cognitive dysfunction consistent with advanced dementia. She made a valid effort. Her attention span was poor. She exhibited mild to moderate akathisia. I spent more than 31 minutes performing and interpreting this exam. CRANIAL NERVES: Visual acuity was intact to reading small print. Visual leonard were full to confrontation, direct and consensual. Extraocular movements were full without nystagmus. Both slow pursuit and saccadic eye movements were normal. PERRLA. Face was symmetric at rest and with grimace. Facial sensation was intact in all three distributions of the fifth cranial nerve bilaterally to touch. Hearing was intact to soft spoken voice. Tongue and palate were midline at rest and with protrusion of the tongue and elevation of the palate. Shoulders were symmetric at rest and with shoulder shrug. MOTOR: Mild diffuse paratonic rigidity. No focal weakness. No drift. SENSATION: Pin, touch, vibration and proprioception were intact in the four extremities distally. COORDINATION: Mild diffuse bradykinesia. Cannot walk a straight line. DEEP TENDON REFLEXES: 2/4 throughout. GAIT: She does not pick her feet up well. HEENT: Normocephalic without dysmorphic features. Conjunctivae were not injected and sclerae were nonicteric. NECK: Carotid upstroke was strong bilaterally without bruits. The thyroid was not enlarged and there were no palpable lymph nodes. CHEST: Clear to auscultation. CARDIOVASCULAR: The heart sounds were normal without murmur or gallop. Regular rate and rhythm. EXTREMITIES: There was no edema or cyanosis. The skin was unremarkable. The spine exhibited normal thoracic kyphosis and normal lumbar lordosis without deformities. Data 11/07/23 14:26 11/07/23 14:26 Other data: I reviewed both of her recent CAT scans. She has noticeable bitemporal atrophy especially the hippocampus A&P Assessment and plan (1) Alzheimer disease: Unfortunate 58-year-old woman who has done many things to prevent Alzheimer's disease, staying fit, eating a vegetarian based diet after getting a diagnosis of alpha gal. She has developed progressive and rapidly progressive dementia over the last 2 years and in the last several months has become helpless. She was scammed out of a large amount of money. Her sister and [id number] have had to obtain guardianship. They recognize that her least restrictive environment is a [facility] with a locked door to avoid her wandering often getting her. She is no longer capable of making decisions about her own safety, her health care. I prefer galantamine for cholinesterase inhibitor. The Frisian study compared 11,600 individuals on cholinesterase inhibitors over 5 years compared to to nontreatment group. There was a 27 % reduction in mortality in the treatment group (dose dependent) as well as a significant benefit on memory. This confirmed benefit of cholinesterase inhibitors for 5 years. Compared to the other 2 agents, galantamine was the only one that protected against severe dementia. Plan to initiate galantamine 4 mg twice daily. Diarrhea is much less likely with this drug than other cholinesterase inhibitors. Recommend switching from aripiprazole to 25 mg Seroquel twice a day. I anticipate that when she gets to the [facility] and becomes acquainted there, she will require less of this medication. Recommend citalopram 20 mg daily to help with the anxiety. Thanks for asking me to participate in her care. I would like to see her in my office in a month. I took time to talk with her sister and her [id number]-pej. Case discussed with Dr. Mcmullen at length. Coding Level of Care Code Acute Code for [facility] Fwd Diagnoses Alzheimer disease G30.9; F02.80
[2023-11-08 14:00] VITALS: BP 136/88; PULSE 77; RESP 14; O2SAT 96
[2023-11-08] MEDS: quetiapine 25 mg Tablet PO (19:43)
[2023-11-08 20:27] VITALS: BP 122/83; PULSE 67; RESP 16; TEMP 36.3; O2SAT 94
[2023-11-09 06:00] VITALS: BP 104/69; PULSE 71; RESP 18; O2SAT 95
--- NOTE | 2023-11-09 08:09 | PC.NURSE ---
During morning assessment, patient stated that she feels good, Patient denies pain, but endoreses an occassional pinch in her right side. This nurse rncouraged patient to notify staff with any more pain. Understanding verbalized. Patient reports feeling anxious and depressions about Dr. Alvares because she states that she knows somebody who had a bad experience with her. This nurse attempted to quail any negative feelings, stating that if she decided she wasn't satisfied with her care, she would be welcome to switch. Understanding verbalized. Denies SI, HI, AVH.
[2023-11-09] MEDS: donepezil 5 MG Tablet PO (08:17)
[2023-11-09] MEDS: ARIPiprazole 10 mg Tablet PO (08:17)
[2023-11-09] MEDS: quetiapine 25 mg Tablet PO ×2 (08:17→19:42)
[2023-11-09] MEDS: citalopram 20 mg Tablet PO (08:27)
--- NOTE | 2023-11-09 12:55 | P.NPUPN_ITS ---
Subjective NPU 2 Subjective: Patient presented today reporting that she is doing fine. However she was found with a somewhat frightened look on her face and she reported that she was just thinking about how much she did not want to have a brain tumor or something where she had to have brain surgery. It appears that she had a friend that had some kind of phenomenon like that and some reason she was thinking about it and think about how bad it was and how much she would want that to be her plight. We reminded her that she has had brain scans here and there is been 0 indication of any intracranial issue like that. We discussed that her possible discharge will be tomorrow as there may have been a facility that is excepting. It appears they will be able to take her tomorrow. She denied any side effects to the medication but she continued to have stiffness that may be related to the Abilify. We discussed continuing to decrease the dose and transition over to Seroquel. Mental Status Exam 2 MSE Comments: This is a slender pleasant white female in hospital scrubs with big dark glasses with limited grooming and fair eye contact. No abnormal movements except for mild psychomotor retardation. She was cooperative with exam in mild distress. Speech was decreased in rate and normal volume. Mood described as okay. Her affect was mood congruent. Thought process was linear and organized. Thought content: Patient denies suicidal or homicidal ideation, there were no delusions reported and she reported no auditory or visual hallucinations. She did not appear to be responding to internal stimuli. She was alert to person only today. She could not recall the name of this place. Abstraction including similarities was poor. Insight appears poor, judgment is impaired, impulse control is poor. Impaired attention as well with inability to perform serial 7's or serial 3's at all reported at 100-7 was 83 and when asked to subtract another 7 she gave the answer as 90. Some mild cogwheel rigidity appreciated bilaterally. Vitals/I&O/Wt Last Vital Signs Temp 97.4 F L 11/08/23 20:27 Pulse 71 11/09/23 06:00 Resp 18 11/09/23 06:00 BP 104/69 11/09/23 06:00 Pulse Ox 95 11/09/23 06:00 O2 Del Method Room Air 11/08/23 20:27 Weight last 48 hrs Weight 72.121 kg Data NPU 11/07/23 14:26 11/07/23 14:26 A&P Assessment and plan (1) Dementia with psychosis: (2) Tick bite of abdomen: (3) Allergy to alpha-gal: Plan This is a 58-year-old white female who presents with anxiety and recent significant life stressors including the loss of both parents and a cousin's suicide. No history of psychiatric hospitalization or medication. Patient denies suicidal ideation but family members have expressed concern about potential self-harm. Patient denies any hallucinations or paranoia. Patient's behavior has been described as erratic and disruptive, leading to job loss. Will consider initiation of medication. 1. Continue current medication. Reduce Abilify to 10 mg p.o. daily due to muscle stiffness with plan to discontinue but likely discharge on 5 mg with continue plan for cross taper to the Seroquel. Plan to switch to seroquel 25 mg po bid . Continue Donazepil 5mg daily. But change to galantamine 4mg po bid tomorrow tomorrow. Also start celexa 20 mg qam. 2. Continue every 15 minute checks for safety. 3. Encourage individual, group and milieu therapies. 4. Obtain collateral information to determine whether there has been improvement on her subtle symptomatology. 5. Level 2 complete, guardianship complete, Patient did poorly in interview regarding placement but it is necessary, unable to return to anywhere but locked facility. Early dementia 6. CT head-nonspecific. 7. Patient needs to go to locked facility. 8. Appreciate neurology consult. Likely discharge tomorrow. Involuntary Hold Information 2 96 Hour Hold: 96 Hour Involuntary Admission: No 96 Hour Hold Ending Date: 0 10/29/23 96 Hour Hold Ending Time: 21:02 Attestations NPU 2 Medical Necessity Statement*: Inpatient hospitalization is medically necessary and the clinically appropriate intervention at this time. We will monitor medications and make changes as indicated. Her likely length of stay 1-2 days. Coding Level of Care Code Acute Code for [facility] Diagnoses Dementia with psychosis F03.92 Tick bite of abdomen S30.861A; W57.XXXA Allergy to alpha-gal Z91.018
[2023-11-09] MEDS: cetylpyridinium Lozenge 1 EACH MUCOUS MEM (13:15)
[2023-11-09 13:46] VITALS: BP 132/83; PULSE 74; RESP 16; TEMP 37.1; O2SAT 98
[2023-11-09] MEDS: haloperidol 5 mg Tablet PO (15:55)
--- NOTE | 2023-11-09 15:57 | PC.NURSE ---
Administered 5mg haldol PO to patient. Patient visibly tremulous. Patient states that she is scared, thinks she heard the welfare case worker and another patient talking about her in the dayroom. This nurse informed patient that they were not discussing her care. Patient voiced that she was scared that she is doing something wrong. This nurse told patient that she hasn't done anything that has upset anybody. Patient also stated that she is worried about the other patients, as well as the staff, feeling happy. Patient appears to be confused. Patient able to state name, HILDA, and origins of her surname.
--- NOTE | 2023-11-09 18:24 | PC.NURSE ---
Patient stated to this nurse that Jarad's partner (aarti) said disparaging things to me. Aarti had been in the dayroom talking with another patient. When this nurse told patient that perhaps it was a misunderstanding, patient shook her head no. Patient states that she is ready to leave because she isn't wanted here. This nurse told patient that she hasn't done anything to warrant staff to be upset with her in any way.
[2023-11-09 20:02] VITALS: BP 142/79; PULSE 94; RESP 16; TEMP 36.2; O2SAT 95
[2023-11-10 06:00] VITALS: BP 154/85; PULSE 74; RESP 16; TEMP 36.3; O2SAT 95
[2023-11-10] MEDS: donepezil 5 MG Tablet PO (08:11)
[2023-11-10] MEDS: citalopram 20 mg Tablet PO (08:11)
[2023-11-10] MEDS: ARIPiprazole 10 mg Tablet PO (08:11)
[2023-11-10] MEDS: quetiapine 25 mg Tablet PO (08:11)
--- NOTE | 2023-11-10 12:27 | P.NPUDS_ITS ---
Diagnoses at Discharge Discharge Diagnosis (1) Dementia with psychosis: Status: Acute (2) Tick bite of abdomen: Status: Resolved (3) Allergy to alpha-gal: Status: Acute Reason for Visit Reason for Visit: MHE Brief History: History of Present Illness Abby Tomlinson is a 58 year old female who presented to the emergency department with the following report: Chief Complaint: Psychiatric Symptoms Stated Complaint: 96 HOUR HOLD Time Seen by Provider: 10/09/23 19:28 History of Present Illness: 58-year-old female comes in transported by local law enforcement. They carry with them a court order for 96-hour hold on this patient. At first, details were not known. We then talked to a member of her family, with which we gain further explanation. She has had erratic behavior recently, has lost 2 jobs because of it. She has been paranoid at home. She believes people are coming into her house and stealing her things. She also believes that she works for the [employer], and that the [place] director of training of debt is after her. Affidavits were produced corroborating this. The patient herself has no complaints. She does not complain of being suicidal or homicidal. She denies significant health problems. She is not on any medications she says. CHIEF COMPLAINT Anxiety issues, recent loss of both parents, feeling of loneliness, concerns raised by family members about potential self-harm. HISTORY OF THE PRESENT COMPLAINT The patient reported experiencing anxiety, which she described as a significant issue for her. She did not provide specific details about the onset, duration, or severity of her anxiety. She did not mention any specific triggers for her anxiety. The patient recently lost both of her parents within a two-week period, which she described as a very difficult experience. She also mentioned feeling lonely due to spending a lot of time by herself. She reported that a cousin of hers recently committed suicide, and she believes that this event may have influenced her family's decision to have her hospitalized. She expressed confusion about their concerns for her safety, stating that she does not feel suicidal and generally considers herself a happy person who enjoys socializing and running with others. The patient denied experiencing depression but acknowledged having anxiety. She expressed a desire for help in managing her anxiety. She denied experiencing any nightmares or flashbacks related to traumatic events in her life. The patient reported some unusual experiences, including an incident where she believed a [employer] was trying to steal her belongings and another incident where she believed someone had reset her iPhone in an attempt to monitor her activities. She also mentioned getting [place] at an airport due to [place] and not being able to find her way home until 4:00 in the morning. The patient denied having any paranoia or experiencing hallucinations. She also denied having any thoughts of self-harm or harming others. Regarding past treatments, the patient reported that she has never been hospitalized for psychiatric reasons, never used outpatient services, and never been on psychiatric medication. She did not mention any current medications during the consultation. MENTAL HEALTH HISTORY No previous psychiatric hospitalization or outpatient services, no history of psychiatric medication, cousin committed suicide recently. SOCIAL HISTORY Enjoys running and being with people, lost two jobs recently due to disruptive behavior, worked at [employer] for 10+ years, lives alone in a duplex with a dog, never been , no children, Hoahaoism, heterosexual. Hospital Course Hospital Course Patient slowly acclimated to the individual, group and milieu therapies provided. She initially presented with psychosis and what appeared to be mild confusion. A 21-day hold was filed but she was placed on guardianship and the 21-day hold was not needed at that point. Significant evaluation by neurology and psychiatry identified that this was a dementing process and she has a family history of early onset dementia. She was switched to Seroquel with a plan to take her off of the Abilify ultimately per neurology recommendations and put on galantamine and the search for a safe unit given her significant disability was lost. It was a prolonged stay but she worked with the social work team for appropriate follow-up and aftercare. She [place] [facility] [place]. During hospitalization she had limited improvement but was able to contract for safety outside of the hospital prior to discharge. During the hospitalization, he had routine laboratory studies which were within normal limits except for a few outliers. Additionally she had general medical evaluation which was also within normal limits and revealed no new acute processes. Discharge Summary At the time of discharge, she denied lethality but had ongoing psychosis and confusion and diminishing ability to function.. Mood and anxiety were well managed and he endorsed a plan to avoid all drugs of abuse, and follow-up with the recommended post hospital services. He was evaluated and deemed to be absent credible lethality and had received the maximum benefit from an inpatient hospitalization, so was discharged. Involuntary Hold Information 96 Hour Hold: 96 Hour Involuntary Admission: No 96 Hour Hold Ending Date: 10/29/23 96 Hour Hold Ending Time: 21:02 Mental Status Exam MSE Comments: This is a slender pleasant white female in hospital scrubs with big dark glasses with limited grooming and fair eye contact. No abnormal movements except for mild psychomotor retardation. She was cooperative with exam in mild distress. Speech was decreased in rate and normal volume. Mood described as okay. Her affect was mood congruent. Thought process was linear and organized. Thought content: Patient denies suicidal or homicidal ideation, there were no delusions reported and she reported no auditory or visual hallucinations. She did not appear to be responding to internal stimuli. She was alert to person only today. She could not recall the name of this place. Abstraction including similarities was poor. Insight appears poor, judgment is impaired, impulse control is poor. Impaired attention as well with inability to perform serial 7's or serial 3's at all Some mild cogwheel rigidity appreciated bilaterally. Discharge Data Studies Completed and Pending: Laboratory Results WBC 7.18 10^3/uL (3.2 9-11.43) 11/07/23 14: RBC 4.19 10^6/uL (3.8 5-5.65) 11/07/23 14:26 Hgb 13.20 g/dL (11.27 -16.99) 11/07/23 14:26 Hct 40.4 % (36-47) 11/07/23 14: MCV 96.4 fl (85-98) 11/07/23 14:26 MCH 31.5 pg (27-33) 11/07/23 14:26 MCHC 32.7 g/dL (30-55) 11/07/23 14: RDW 13.1 % (12.1-15.1 ) 11/07/23 14: Plt Count 291 10^3/cmm (157 -399) 11/07/23 14: MPV 9.0 fL (7.4-10.4) 11/07/23 14:26 Neut % (Auto) 62.4 % 11/07/23 14:26 Lymph % (Auto) 27.2 % 11/07/23 14:26 [place] % (Auto) 7.4 % 11/07/23 14:26 Eos % (Auto) 2.5 % 11/07/23 14: Baso % (Auto) 0.4 % 11/07/23 14: Neut # (Auto) 4.48 10^3/uL (1.8 -7.7) 11/07/23 14: Lymph # (Auto) 2.0 10^3/uL (0.8- 4.8) 11/07/23 14: [place] # (Auto) 0.5 10^3/uL (0.2- 0.9) 11/07/23 14: Eos # (Auto) 0.2 10^3/uL (0.0- 0.8) 11/07/23 14: Baso # (Auto) 0.0 10^3/uL (0.0- 0.1) 11/07/23 14: Nucleated RBC % (a uto) 0 % 11/07/23 14: Nucleated RBCs # 0.0 /100WBC 11/07/23 14: Sodium 140 mmol/L (136-1 45) 11/07/23 14: Potassium 4.1 mmol/L (3.5-5 .1) 11/07/23 14: Chloride 103 mmol/L (98-10 7) 11/07/23 14: Carbon Dioxide 28 mmol/L (22-29) 11/07/23 14: Anion Gap 13.1 (5-19) 11/07/23 14:26 BUN 14 mg/dL (6-20) 11/07/23 14: Creatinine 0.7 mg/dL (0.5-0. 9) 11/07/23 14:26 GFR Calculation 86.6 mL/min (90-1 30) L 11/07/23 14:26 Glucose 111 mg/dL (65-115 ) 11/07/23 14: Calculated Osmolal ity 291 mOsm/kg (285- 295) 11/07/23 14:26 Calcium 9.5 mg/dL (8.5-10 .5) 11/07/23 14:26 Total Bilirubin 0.3 mg/dL (0.15-1 .2) 11/07/23 14: Direct Bilirubin 0.20 mg/dL (0.00- 0.30) 11/05/23 16:07 AST 23 U/L (0-32) 11/07/23 14:26 ALT 14 U/L (0-33) 11/07/23 14:26 Alkaline Phosphata se 109 U/L (35-105) H 11/07/23 14:26 Total Protein 7.3 g/dL (6.6-8.7 ) 11/07/23 14:26 Albumin 4.0 g/dL (3.5-5.2 ) 11/07/23 14:26 Globulin 3.3 g/dL (1.3-4.6 ) 11/07/23 14:26 Amylase 71 U/L (28-100) 11/05/23 16:07 Lipase 29 U/L (13-60) 11/05/23 16:07 Urine Color Straw (Yellow) 11/07/23 Unknown Urine Appearance Clear (CLEAR) 11/07/23 Unknown Urine pH 5 (5-7) 11/07/23 Unknown Ur Specific Gravit y 1.015 (1.005-1.0 30) 11/07/23 Unknown Urine Protein Neg (Negative) 11/07/23 Unknown Urine Glucose (UA) Norm (Normal) 11/07/23 Unknown Urine Ketones Negative (Negati ve) 11/07/23 Unknown Urine Blood Trace (Negative) H 11/07/23 Unknown Urine Nitrate Negative (Negati ve) 11/07/23 Unknown Urine Bilirubin Neg (Negative) 11/07/23 Unknown Urine Urobilinogen Norm mg/dL (Negat mac) 11/07/23 Unknown Ur Leukocyte Baylee ase Negative (Negati ve) 11/07/23 Unknown Urine RBC Rare /hpf (0-2) 11/07/23 Unknown Urine WBC 10-15 /hpf (0-5) H 11/07/23 Unknown Ur Squamous Epith Cells 0-4 /hpf (0-5) H 11/07/23 Unknown Amorphous Sediment Not Reportable 11/07/23 Unknown Urine Bacteria Trace /hpf (NONE) 11/07/23 Unknown Urine Mucus Trace /hpf 11/07/23 Unknown Salicylates < 0.3 mg/dL (3-10 ) L 10/29/23 20:17 Urine Opiates Scre en Negative ng/mL (N egative) 10/29/23 20:24 Acetaminophen < 5.0 ug/mL (10-3 0) L 10/29/23 20:17 Ur Barbiturates Sc reen Negative ng/mL (N egative) 10/29/23 20:24 Ur Phencyclidine S crn Negative ng/mL (N egative) 10/29/23 20:24 Ur Amphetamines Sc reen Negative ng/mL (N egative) 10/29/23 20:24 U Benzodiazepines Scrn Negative ng/mL (N egative) 10/29/23 20:24 Urine Cocaine Scre en Negative ng/mL (N egative) 10/29/23 20:24 U Marijuana (THC) Screen Negative ng/mL (N egative) 10/29/23 20:24 Ethyl Alcohol < 10 mg/dL (0-10) 10/29/23 20:17 Vitals: Last Vital Signs Temp 97.3 F L 11/10/23 06:00 Pulse 74 11/10/23 06:00 Resp 16 11/10/23 06:00 BP 154/85 11/10/23 06:00 Pulse Ox 95 11/10/23 06:00 O2 Del Method Room Air 11/09/23 13:46 Discharge Plan Discharge Patient Disposition: Xfer SNF Condition: Stable Prescriptions: New quetiapine 25 mg Tablet 25 mg PO 0900,2100 30 Days Qty: 60 1RF Rx Instructions: Consider titrating dose as abilify being tapered of. trazodone 50 mg Tablet 50 mg PO BEDTIME PRN (Reason: Sleep) 30 Days Qty: 30 1RF citalopram 20 mg Tablet 20 mg PO DAILY 30 Days Qty: 30 1RF benztropine 1 mg Tablet 1 mg PO BID PRN (Reason: Mild Extrapyramidal symptoms) 30 Days Qty: 60 1RF galantamine 4 mg tablet 4 mg PO BID 30 Days Qty: 60 1RF Rx Instructions: administer with AM and PM meals Continued epinephrine [EpiPen] 0.3 mg/0.3 mL auto-injector 0.3 mg IM Q10M PRN (Reason: anaphylaxis) Qty: 1 0RF Rx Instructions: for 2 doses Discontinued aripiprazole [Abilify] 15 mg tablet 15 mg PO DAILY Discharge Orders: Discharge Order (Routine); Ordered 11/10/23 Ordered By: Devyn Mcmullen Referrals: [facility] [Outside] - 11/10/23 4:00 pm Karlie Alvares MD [Physician] - 4-7 days (Dr Bee office will call [facility] for a follow up appointment.) Shekhar Diamond MD [Hospitalist] - 1-3 days Discharge Diet: Regular Discharge Activity: Resume usual activity Patient Instructions: Trazodone (By mouth) (Desyrel, Desyrel Dividose, Oleptro, Trazamine), Benztropine Mesylate (By mouth), Quetiapine (By mouth) (Seroquel, Seroquel XR, Seroquel XR 14-Day..., Citalopram (By mouth) (Celexa), Galantamine (By mouth) (Razadyne, Razadyne ER), Aripiprazole (By mouth), Alzheimer Disease ( GEN), Dementia (ED), Opioid Safety Discharge Attestations NPU Time Spent in Discharge Care*: less than 30 min Specific Discharge Activities: Specific discharge activities: educating patient, discussing with bilingual patient support caseworker/social workers/dc planners, documenting/other paperwork and evaluating patient/reviewing data Coding Level of Care Code Acute Code for Chg Fwd Diagnoses Dementia with psychosis F03.92 Tick bite of abdomen S30.861A; W57.XXXA Allergy to alpha-gal Z91.018
[2023-11-10 12:33] VITALS: BP 154/85; PULSE 74; RESP 16; TEMP 36.3; O2SAT 95
[2023-11-10 14:00] VITALS: BP 110/74; PULSE 111; RESP 16; TEMP 36.7; O2SAT 97
== END 2023-11-10 17:50 | disposition skilled nursing facility (03) | DRG 57 ==
LOC: ER 20:15 → NP 20:35
PROVIDERS: Admitting Provider Psychiatry & Neurology Psychiatry; Emergency Provider Emergency Medicine; Visit Provider Psychiatry & Neurology Psychiatry
DX: G30.9 Alzheimer's disease, unspecified (principal); F02.82 Dementia in other diseases classified elsewhere, unspecified severity, with psychotic disturbance; F05 Delirium due to known physiological condition; Z63.4 Disappearance and death of family member; F41.9 Anxiety disorder, unspecified; Z82.0 Family history of epilepsy and other diseases of the nervous system
CPT/HCPCS: 36415; 80053; 80076; 80306; 80307; 81001; 82150; 83690; 85025; 97150; 97165; 99285

== ENCOUNTER → 2024-01-04 09:30 | Outpatient (BNVA) | payer MEDICAID, SELFPAY | PROVIDERS: Visit Provider Specialist | DX: G31.83 Neurocognitive disorder with Lewy bodies (principal); F02.818 Dementia in other diseases classified elsewhere, unspecified severity, with other behavioral disturbance | CPT/HCPCS: 99204; 99205 ==

== ENCOUNTER 2024-05-24 03:49 | Inpatient (IN) | payer MEDICAID, SELFPAY ==
[2024-05-24] VITALS (32 sets, daily range): BP systolic 87–120; BP diastolic 58–86; PULSE 62–96; RESP 16–45; TEMP 36.4–36.8; O2SAT 89–99; BMI 24.5; BMI 22.1
--- NOTE | 2024-05-24 03:55 | XRR_ITS ---
PROCEDURE INFORMATION: Exam: XR Chest Exam date and time: 05/24/2024 4:16 AM Age: 59 years old Clinical indication: Shortness of breath TECHNIQUE: Imaging protocol: Radiologic exam of the chest. Views: 1 view. COMPARISON: No relevant prior studies available. FINDINGS: Lungs: Extensive bilateral pulmonary infiltrates, partially can fluid. Pleural spaces: Unremarkable. No pleural effusion. No pneumothorax. Heart/Mediastinum: See Vasculature finding. Vasculature: Mild cardiomegaly and uncoiling of the thoracic aorta. Bones/joints: Unremarkable. XR/XR chest 1V portable [id number] IMPRESSION: Extensive pulmonary infiltrates.
--- NOTE | 2024-05-24 03:56 | ECG_ITS ---
[facility] Test Date: 2024-05-24 Pat Name: Abby Tomlinson Department: Room: Gender: Female Visual [employer] .[employer] Developer: : 1965 Requested By: Angelica Griffith Order Number: [id number] Nichole MD: Cam Benson M.D. Measurements Intervals [place] Rate: 92 P: 31 VT: 112 QRS: 37 QRSD: 70 T: 45 QT: 353 QTc: 439 Interpretive Statements SINUS RHYTHM WITH SHORT VT INTERVAL LEFT ATRIAL ENLARGEMENT [-0.15mV P-WAVE IN V1/V2] Compared to ECG 10/09/2023 21:02:37 Short VT interval now present Electronically Signed On 05-24-2024 7:48:01 CDT by Cam Benson M.D. [id number]
[2024-05-24 04:04] LABS: Basophils # 0.1 10^3/uL (0.0-0.1); Basophils % 0.4 %; Eosinophils # 0.3 10^3/uL (0.0-0.8); Eosinophils % 2.8 %; Hematocrit 44.5 % (36-47); Lymphocytes # 2.6 10^3/uL (0.8-4.8); Lymphocytes % 22.3 %; Mean Corpuscular HGB Conc 31.7 g/dL (30-55); Mean Corpuscular Hemoglobin 30.2 pg (27-33); Mean Corpuscular Volume 95.3 fl (85-98); Mean Platelet Volume 8.7 fL (7.4-10.4); Monocytes # 0.7 10^3/uL (0.2-0.9); Neutrophils # 7.91 10^3/uL (1.8-7.7); Neutrophils % 68.2 %; Nucleated Red Blood Cells % 0 %; Platelet Count 272 10^3/cmm (157-399); Red Blood Count 4.67 10^6/uL (3.85-5.65); Red Cell Distribution Width 13.7 % (12.1-15.1); White Blood Count 11.61 10^3/uL (3.29-11.43)
--- NOTE | 2024-05-24 04:12 | W.ED.SOB ---
Documented by User: Angelica Jacob MD 05/24/24 05:36 HPI - SOB/Dyspnea General: Chief Complaint: Shortness of Breath/Dyspnea Stated Complaint: SOB Time Seen by Provider: 05/24/24 04:02 History of Present Illness: HPI Narrative: 59-year-old female who presents emergency room with shortness of breath. She says she has been sick for couple weeks now. She was seen in clinic and prescribed antibiotics which she stopped yesterday. She says she was diagnosed with pneumonia. She says she became much worse overnight. Called an ambulance. She is hypoxemic on presentation. Initially requiring 5 L nasal cannula. Some chest tightness. Some cough. She reports that her mother and possibly some other family member had pulmonary fibrosis. She does not have a personal history of this that she reports Related Data Home Medications Medication Instructions Recorded Confirmed cyclobenzaprine 5 mg tablet 5 mg PO BID PRN muscle spasms 01/04/24 05/24/24 acetaminophen 325 mg tablet 650 mg PO Q4H PRN general 05/24/24 05/24/24 discomfort albuterol sulfate 2.5 mg/3 mL 2.5 mg inhalation Q4H PRN 05/24/24 05/24/24 (0.083 %) solution for nebulization Shortness Of Breath alprazolam 0.25 mg tablet (Xanax) 0.25 mg PO BID PRN Anxiety 05/24/24 05/24/24 bisacodyl 5 mg tablet 10 mg PO DAILY PRN Constipation 05/24/24 05/24/24 dextran 70-hypromellose eye drops 2 drp ophthalmic (eye) Q4H PRN Dry 05/24/24 05/24/24 in a dropperette (Artificial Tears Eyes (PF) drops in a dropperette) donepezil 5 mg tablet (Aricept) 5 mg PO QAM 05/24/24 05/24/24 menthol 5 mg lozenges (Cough Drops) 5 mg mucous membrane Q4H PRN Cough 05/24/24 05/24/24 Previous Rx's Medication Instructions Recorded epinephrine 0.3 mg/0.3 mL 0.3 mg (0.3 mL) IM Q10M PRN 01/31/22 injection, auto-injector (EpiPen) anaphylaxis #1 ea benztropine 1 mg tablet 1 mg PO BID PRN Mild 02/27/24 Extrapyramidal symptoms 30 days #60 tabs citalopram 20 mg tablet 20 mg PO DAILY 30 days #30 tabs 11/10/23 quetiapine 50 mg tablet 50 mg PO 0900,2100 30 days #180 01/04/24 tabs Allergies Allergy/AdvReac Type Severity Reaction Status Date / Time Alpha-Gal Allergy ALGY-Anaphy Verified 01/04/24 09:52 (Jxfpyyhfa-Tgffp-6,3-Gala laxis Review of Systems Narrative: Constitutional symptoms: Negative except as documented in HPI. Skin symptoms: Negative except as documented in HPI. Eye symptoms: Negative except as documented in HPI. ENMT symptoms: Negative except as documented in HPI. Respiratory symptoms: Negative except as documented in HPI. Cardiovascular symptoms: Negative except as documented in HPI. Gastrointestinal symptoms: Negative except as documented in HPI. Genitourinary symptoms: Negative except as documented in HPI. Musculoskeletal symptoms: Negative except as documented in HPI. Neurologic symptoms: Negative except as documented in HPI. Psychiatric symptoms: Negative except as documented in HPI. Endocrine symptoms: Negative except as documented in HPI. PFSH ED PFSH: Medical History (Updated 05/24/24 @ 14:19 by Aurelio Barth DO) Lewy body dementia with behavioral disturbance Family History Mother Lung disease Social History (Updated 05/24/24 @ 10:08 by Shekhar Diamond MD) Smoking and tobacco/nicotine status: former use of tobacco/nicotine Alcohol intake: never Physical Exam Narrative: EXAM NARRATIVE: General: Alert, no acute distress. Skin: Warm, dry. Head: Normocephalic, atraumatic. Neck: Supple, trachea midline. Eye: Extraocular movements are intact. Ears, nose, mouth and throat: mucosa moist. Cardiovascular: Regular, Normal peripheral perfusion. Respiratory: Coarse, tachypneic, mild increased work of breathing. Gastrointestinal: Soft, Nontender, Non distended Musculoskeletal: Normal ROM, no deformity. Neurological: Alert and oriented, No focal neurological deficit observed. Psychiatric: Cooperative, appropriate mood & affect. Course Vital Signs: Vital signs: Vital Signs Temperature 97.7 F 05/24/24 11:29 Pulse Rate 81 05/24/24 14:16 Respiratory Rate 20 H 05/24/24 14:16 Blood Pressure 110/60 05/24/24 11:29 Pulse Oximetry 94 05/24/24 14:16 Oxygen Delivery Me thod Nasal Cannula 05/24/24 14:16 Oxygen Flow Rate 5 05/24/24 14:16 MDM - SOB/Dyspnea Medical Decision Making Differential diagnosis for patient with shortness of breath includes but is not limited to and based on the above HPI, review of systems and physical exam: Pneumonia. Bronchitis. Asthma or COPD with acute exacerbation. Acute coronary syndrome / CT. Pulmonary embolism. Anxiety. Congestive heart failure. Viral infections including influenza and Covid-19. Atrial fibrillation. Anxiety. Pleural effusion. Pneumothorax. Workup: Lab work, chest X-ray and EKG ordered to evaluate, rule in and rule out above pathologies EKG: Time 356. Rate 92. Normal sinus rhythm, No ST-T changes, no ectopy, normal LA & QRS intervals, This was reviewed and interpreted by myself the ER physician at 0400 Chest x-ray: Diffuse patchy infiltrate more dense at the lung bases. This does have an appearance of pulmonary fibrosis or diffuse pneumonia. Films were interpreted by myself the emergency room provider and pending final radiology review. Lab Review: Laboratory results were reviewed and interpreted by myself the emergency room physician. Mild leukocytosis with a white count of 11.6. No anemia. Hemoglobin is 14. BUN and creatinine are 5 and 0.6. Procalcitonin and lactate are negative. Patient care transitioned to Dr. Barth at shift change. CTA of the chest has just been finished and read is pending. Lab Data 05/24/24 03:57 05/24/24 03:57 Labs/Radiology: Radiology Impressions Chest X-Ray 05/24/24 03:55 IMPRESSION: Extensive pulmonary infiltrates. Chest CTA 05/24/24 04:50 IMPRESSION: Extensive bilateral pneumonia. No evidence of embolus. Laboratory Results WBC 11.61 10^3/uL (3.29-11.43) H 05/24/24 03:57 RBC 4.67 10^6/uL (3.85-5.65) 05/24/24 03:57 Hgb 14.10 g/dL (11.27-16.99) 05/24/24 03:57 Hct 44.5 % (36-47) 05/24/24 03:57 MCV 95.3 fl (85-98) 05/24/24 03:57 MCH 30.2 pg (27-33) 05/24/24 03:57 MCHC 31.7 g/dL (30-55) 05/24/24 03:57 RDW 13.7 % (12.1-15.1) 05/24/24 03:57 Plt Count 272 10^3/cmm (157-399) 05/24/24 03:57 MPV 8.7 fL (7.4-10.4) 05/24/24 03:57 Neut % (Auto) 68.2 % 05/24/24 03:57 Lymph % (Auto) 22.3 % 05/24/24 03:57 Mercer % (Auto) 6.0 % 05/24/24 03:57 Eos % (Auto) 2.8 % 05/24/24 03:57 Baso % (Auto) 0.4 % 05/24/24 03:57 Neut # (Auto) 7.91 10^3/uL (1.8-7.7) H 05/24/24 03:57 Lymph # (Auto) 2.6 10^3/uL (0.8-4.8) 05/24/24 03:57 Mercer # (Auto) 0.7 10^3/uL (0.2-0.9) 05/24/24 03:57 Eos # (Auto) 0.3 10^3/uL (0.0-0.8) 05/24/24 03:57 Baso # (Auto) 0.1 10^3/uL (0.0-0.1) 05/24/24 03:57 Nucleated RBC % (auto) 0 % 05/24/24 03:57 Nucleated RBCs # 0.0 /100WBC 05/24/24 03:57 Specimen Type Arterial 05/24/24 04:04 Sample Site Brachial, left 05/24/24 04:04 ABG pH 7.44 (7.35-7.45) 05/24/24 04:04 ABG pCO2 46.0 mmHg (35-45) H 05/24/24 04:04 ABG pO2 65.3 mmHg (80.0-100.0) L 05/24/24 04:04 ABG HCO3 30.9 mmol/L (22-26) H 05/24/24 04:04 ABG O2 Saturation 94.1 05/24/24 04:04 ABG Base Excess 5.7 mmol/L (-2.0-2.0) H 05/24/24 04:04 Rich Test N/a 05/24/24 04:04 A-a O2 Gradient 3.7 mmHg (5-10) L 05/24/24 04:04 Hematocrit 41.9 % (37-47) 05/24/24 04:04 Hgb O2 Saturation 92.6 % (95-100) L 05/24/24 04:04 Carboxyhemoglobin 1.6 %THgb (0.4-20.1) 05/24/24 04:04 Methemoglobin 0.0 % (0.4-1.5) L 05/24/24 04:04 Total Hemoglobin 13.7 g/dL (12-16) 05/24/24 04:04 Sodium 138.0 mmol/L (131-143) 05/24/24 04:04 Potassium 4.0 mmol/L (3.5-5.0) 05/24/24 04:04 Glucose 112.0 mg/dL (70-115) 05/24/24 04:04 Ionized Calcium 1.2 mmol/L (1.1-1.4) 05/24/24 04:04 O2 Delivery Device Nc 05/24/24 04:04 O2 Liters/Min 4.0 % 05/24/24 04:04 Medical Device Sales ID Leland 05/24/24 04:04 Sodium 134 mmol/L (136-145) L 05/24/24 03:57 Potassium 4.0 mmol/L (3.5-5.1) 05/24/24 03:57 Chloride 95 mmol/L (98-107) L 05/24/24 03:57 Carbon Dioxide 29 mmol/L (22-29) 05/24/24 03:57 Anion Gap 14.0 (5-19) 05/24/24 03:57 BUN 5 mg/dL (6-20) L 05/24/24 03:57 Creatinine 0.6 mg/dL (0.5-0.9) 05/24/24 03:57 GFR Calculation 103.0 mL/min (90-130) 05/24/24 03:57 Glucose 106 mg/dL (65-115) 05/24/24 03:57 Calculated Osmolality 276 mOsm/kg (285-295) L 05/24/24 03:57 Lactic Acid 1.8 mmol/L (0.5-2.2) 05/24/24 03:57 Calcium 9.0 mg/dL (8.5-10.5) 05/24/24 03:57 Total Bilirubin 0.4 mg/dL (0.15-1.2) 05/24/24 03:57 AST 14 U/L (0-32) 05/24/24 03:57 ALT 8 U/L (0-33) 05/24/24 03:57 Alkaline Phosphatase 109 U/L (35-105) H 05/24/24 03:57 Troponin T Baseline 10 ng/L (0-10) 05/24/24 03:57 Troponin T 120 Minute 9.02 ng/L (0-10) 05/24/24 05:54 Delta Troponin T -0.98 ABS# (0-10) L 05/24/24 05:54 Troponin T Hi Sens 6Hr 7.39 ng/L (0-10) 05/24/24 09:49 Troponin T Hi Sens 6Hr Delta -2.61 ng/L (0-12) L 05/24/24 09:49 C-Reactive Protein 57.1 mg/L (0.0-4.9) H 05/24/24 03:57 NT-Pro-B Natriuret Pep 41 pg/mL (0-125) 05/24/24 09:49 Total Protein 7.8 g/dL (6.6-8.7) 05/24/24 03:57 Albumin 3.6 g/dL (3.5-5.2) 05/24/24 03:57 Globulin 4.2 g/dL (1.3-4.6) 05/24/24 03:57 Procalcitonin 0.08 ng/mL (0-0.5) 05/24/24 03:57 TSH 0.41 uIU/mL (0.27-4.20) 05/24/24 09:49 Coronavirus (PCR) Negative (Negative) 05/24/24 03:57 HIV 1&2 Ab & HIV 1 Ag Non-reactive (Non-Reactiv) 05/24/24 03:57 HIV 1&2 Antibody Non-reactive (Non-Reactiv) 05/24/24 03:57 Influenza A (PCR) Negative (Negative) 05/24/24 03:57 Influenza Type B (PCR) Negative (Negative) 05/24/24 03:57 RSV (PCR) Negative (Negative) 05/24/24 03:57 Discharge Plan Discharge Patient Disposition: Admitted As Inpatient Admit Provider: Shekhar Diamond Clinical Impression: Pneumonia, Lewy body dementia with behavioral disturbance, Acute respiratory failure Condition: Stable Sign Out Sign Out Data: Patient Sign Out occurred on 05/24/24 at 06:14. Patient's care was discussed, and care was transferred from Angelica Jacob MD to Aurelio Barth DO. Coding Level of Care Code ED Senior Clinical Research Scientist for Chg Fwd Documented by User: Aurelio Barth DO 05/24/24 14:19 HPI - SOB/Dyspnea General: Chief Complaint: Shortness of Breath/Dyspnea Stated Complaint: SOB Time Seen by Provider: 05/24/24 04:02 Related Data Home Medications Medication Instructions Recorded Confirmed cyclobenzaprine 5 mg tablet 5 mg PO BID PRN muscle spasms 01/04/24 05/24/24 acetaminophen 325 mg tablet 650 mg PO Q4H PRN general 05/24/24 05/24/24 discomfort albuterol sulfate 2.5 mg/3 mL 2.5 mg inhalation Q4H PRN 05/24/24 05/24/24 (0.083 %) solution for nebulization Shortness Of Breath alprazolam 0.25 mg tablet (Xanax) 0.25 mg PO BID PRN Anxiety 05/24/24 05/24/24 bisacodyl 5 mg tablet 10 mg PO DAILY PRN Constipation 05/24/24 05/24/24 dextran 70-hypromellose eye drops 2 drp ophthalmic (eye) Q4H PRN Dry 05/24/24 05/24/24 in a dropperette (Artificial Tears Eyes (PF) drops in a dropperette) donepezil 5 mg tablet (Aricept) 5 mg PO QAM 05/24/24 05/24/24 menthol 5 mg lozenges (Cough Drops) 5 mg mucous membrane Q4H PRN Cough 05/24/24 05/24/24 Previous Rx's Medication Instructions Recorded epinephrine 0.3 mg/0.3 mL 0.3 mg (0.3 mL) IM Q10M PRN 01/31/22 injection, auto-injector (EpiPen) anaphylaxis #1 ea benztropine 1 mg tablet 1 mg PO BID PRN Mild 11/10/23 Extrapyramidal symptoms 30 days #60 tabs citalopram 20 mg tablet 20 mg PO DAILY 30 days #30 tabs 11/10/23 quetiapine 50 mg tablet 50 mg PO 0900,2100 30 days #180 01/04/24 tabs Allergies Allergy/AdvReac Type Severity Reaction Status Date / Time Alpha-Gal Allergy ALGY-Anaphy Verified 01/04/24 09:52 ([id number]-Vokhy-9,3-Gala laxis PFSH ED PFSH: Medical History (Updated 05/24/24 @ 14:19 by Aurelio Barth DO) Lewy body dementia with behavioral disturbance Family History Mother Lung disease Social History (Updated 05/24/24 @ 10:08 by Shekhar Diamond MD) Smoking and tobacco/nicotine status: former use of tobacco/nicotine Alcohol intake: never Course Vital Signs: Vital signs: Vital Signs Temperature 97.7 F 05/24/24 11:29 Pulse Rate 81 05/24/24 14:16 Respiratory Rate 20 H 05/24/24 14:16 Blood Pressure 110/60 05/24/24 11:29 Pulse Oximetry 94 05/24/24 14:16 Oxygen Delivery Me thod Nasal Cannula 05/24/24 14:16 Oxygen Flow Rate 5 05/24/24 14:16 MDM - SOB/Dyspnea Medical Decision Making Differential diagnosis for patient with shortness of breath includes but is not limited to and based on the above HPI, review of systems and physical exam: Pneumonia. Bronchitis. Asthma or COPD with acute exacerbation. Acute coronary syndrome / CT. Pulmonary embolism. Anxiety. Congestive heart failure. Viral infections including influenza and Covid-19. Atrial fibrillation. Anxiety. Pleural effusion. Pneumothorax. Workup: Lab work, chest X-ray and EKG ordered to evaluate, rule in and rule out above pathologies EKG: Time 356. Rate 92. Normal sinus rhythm, No ST-T changes, no ectopy, normal LA & QRS intervals, This was reviewed and interpreted by myself the ER physician at 0400 Chest x-ray: Diffuse patchy infiltrate more dense at the lung bases. This does have an appearance of pulmonary fibrosis or diffuse pneumonia. Films were interpreted by myself the emergency room provider and pending final radiology review. Lab Review: Laboratory results were reviewed and interpreted by myself the emergency room physician. Mild leukocytosis with a white count of 11.6. No anemia. Hemoglobin is 14. BUN and creatinine are 5 and 0.6. Procalcitonin and lactate are negative. Patient care transitioned to Dr. Barth at shift change. CTA of the chest has just been finished and read is pending. Care assumed at change of shift. There is no pulmonary emboli on CTA however there is extensive pneumonia. Patient has already received cefepime and linezolid. Discussed with Dr. Oliver will admit to [facility]. Full admission for bilateral pneumonia. Medical Records I reviewed the patient's medical records. Lab Data I reviewed the patient's lab results. 05/24/24 03:57 05/24/24 03:57 Labs/Radiology: Radiology Impressions Chest X-Ray 05/24/24 03:55 IMPRESSION: Extensive pulmonary infiltrates. Chest CTA 05/24/24 04:50 IMPRESSION: Extensive bilateral pneumonia. No evidence of embolus. Laboratory Results WBC 11.61 10^3/uL (3.29-11.43) H 05/24/24 03:57 RBC 4.67 10^6/uL (3.85-5.65) 05/24/24 03:57 Hgb 14.10 g/dL (11.27-16.99) 05/24/24 03:57 Hct 44.5 % (36-47) 05/24/24 03:57 MCV 95.3 fl (85-98) 05/24/24 03:57 MCH 30.2 pg (27-33) 05/24/24 03:57 MCHC 31.7 g/dL (30-55) 05/24/24 03:57 RDW 13.7 % (12.1-15.1) 05/24/24 03:57 Plt Count 272 10^3/cmm (157-399) 05/24/24 03:57 MPV 8.7 fL (7.4-10.4) 05/24/24 03:57 Neut % (Auto) 68.2 % 05/24/24 03:57 Lymph % (Auto) 22.3 % 05/24/24 03:57 Mercer % (Auto) 6.0 % 05/24/24 03:57 Eos % (Auto) 2.8 % 05/24/24 03:57 Baso % (Auto) 0.4 % 05/24/24 03:57 Neut # (Auto) 7.91 10^3/uL (1.8-7.7) H 05/24/24 03:57 Lymph # (Auto) 2.6 10^3/uL (0.8-4.8) 05/24/24 03:57 Mercer # (Auto) 0.7 10^3/uL (0.2-0.9) 05/24/24 03:57 Eos # (Auto) 0.3 10^3/uL (0.0-0.8) 05/24/24 03:57 Baso # (Auto) 0.1 10^3/uL (0.0-0.1) 05/24/24 03:57 Nucleated RBC % (auto) 0 % 05/24/24 03:57 Nucleated RBCs # 0.0 /100WBC 05/24/24 03:57 Specimen Type Arterial 05/24/24 04:04 Sample Site Brachial, left 05/24/24 04:04 ABG pH 7.44 (7.35-7.45) 05/24/24 04:04 ABG pCO2 46.0 mmHg (35-45) H 05/24/24 04:04 ABG pO2 65.3 mmHg (80.0-100.0) L 05/24/24 04:04 ABG HCO3 30.9 mmol/L (22-26) H 05/24/24 04:04 ABG O2 Saturation 94.1 05/24/24 04:04 ABG Base Excess 5.7 mmol/L (-2.0-2.0) H 05/24/24 04:04 Rich Test N/a 05/24/24 04:04 A-a O2 Gradient 3.7 mmHg (5-10) L 05/24/24 04:04 Hematocrit 41.9 % (37-47) 05/24/24 04:04 Hgb O2 Saturation 92.6 % (95-100) L 05/24/24 04:04 Carboxyhemoglobin 1.6 %THgb (0.4-20.1) 05/24/24 04:04 Methemoglobin 0.0 % (0.4-1.5) L 05/24/24 04:04 Total Hemoglobin 13.7 g/dL (12-16) 05/24/24 04:04 Sodium 138.0 mmol/L (131-143) 05/24/24 04:04 Potassium 4.0 mmol/L (3.5-5.0) 05/24/24 04:04 Glucose 112.0 mg/dL (70-115) 05/24/24 04:04 Ionized Calcium 1.2 mmol/L (1.1-1.4) 05/24/24 04:04 O2 Delivery Device Nc 05/24/24 04:04 O2 Liters/Min 4.0 % 05/24/24 04:04 Medical Device Sales ID Leland 05/24/24 04:04 Sodium 134 mmol/L (136-145) L 05/24/24 03:57 Potassium 4.0 mmol/L (3.5-5.1) 05/24/24 03:57 Chloride 95 mmol/L (98-107) L 05/24/24 03:57 Carbon Dioxide 29 mmol/L (22-29) 05/24/24 03:57 Anion Gap 14.0 (5-19) 05/24/24 03:57 BUN 5 mg/dL (6-20) L 05/24/24 03:57 Creatinine 0.6 mg/dL (0.5-0.9) 05/24/24 03:57 GFR Calculation 103.0 mL/min (90-130) 05/24/24 03:57 Glucose 106 mg/dL (65-115) 05/24/24 03:57 Calculated Osmolality 276 mOsm/kg (285-295) L 05/24/24 03:57 Lactic Acid 1.8 mmol/L (0.5-2.2) 05/24/24 03:57 Calcium 9.0 mg/dL (8.5-10.5) 05/24/24 03:57 Total Bilirubin 0.4 mg/dL (0.15-1.2) 05/24/24 03:57 AST 14 U/L (0-32) 05/24/24 03:57 ALT 8 U/L (0-33) 05/24/24 03:57 Alkaline Phosphatase 109 U/L (35-105) H 05/24/24 03:57 Troponin T Baseline 10 ng/L (0-10) 05/24/24 03:57 Troponin T 120 Minute 9.02 ng/L (0-10) 05/24/24 05:54 Delta Troponin T -0.98 ABS# (0-10) L 05/24/24 05:54 Troponin T Hi Sens 6Hr 7.39 ng/L (0-10) 05/24/24 09:49 Troponin T Hi Sens 6Hr Delta -2.61 ng/L (0-12) L 05/24/24 09:49 C-Reactive Protein 57.1 mg/L (0.0-4.9) H 05/24/24 03:57 NT-Pro-B Natriuret Pep 41 pg/mL (0-125) 05/24/24 09:49 Total Protein 7.8 g/dL (6.6-8.7) 05/24/24 03:57 Albumin 3.6 g/dL (3.5-5.2) 05/24/24 03:57 Globulin 4.2 g/dL (1.3-4.6) 05/24/24 03:57 Procalcitonin 0.08 ng/mL (0-0.5) 05/24/24 03:57 TSH 0.41 uIU/mL (0.27-4.20) 05/24/24 09:49 Coronavirus (PCR) Negative (Negative) 05/24/24 03:57 HIV 1&2 Ab & HIV 1 Ag Non-reactive (Non-Reactiv) 05/24/24 03:57 HIV 1&2 Antibody Non-reactive (Non-Reactiv) 05/24/24 03:57 Influenza A (PCR) Negative (Negative) 05/24/24 03:57 Influenza Type B (PCR) Negative (Negative) 05/24/24 03:57 RSV (PCR) Negative (Negative) 05/24/24 03:57 All radiology interpretation(s) finalized by discharge Discharge Plan Discharge Patient Disposition: Admitted As Inpatient Admit Provider: Shekhar Diamond Clinical Impression: Pneumonia, Lewy body dementia with behavioral disturbance, Acute respiratory failure Condition: Stable Sign Out Sign Out Data: Patient Sign Out occurred on 05/24/24 at 06:14. Patient's care was discussed, and care was transferred from Angelica Jacob MD to Aurelio Barth DO. Coding Level of Care Code ED Senior Clinical Research Scientist for Amparo Bee
[2024-05-24 04:16] LABS: ABG PH Result 7.44 (7.35-7.45); Alveolar-Arterial Oxygen Gradi 3.7 mmHg (5-10); Arterial Blood Gas Hematocrit 41.9 % (37-47); Base Excess ABG 5.7 mmol/L (-2.0-2.0); Blood Gas Operator Identificat SAM; Blood Gas Sample Site Brachial, left; Blood Gas Sample Type Arterial; Carboxyhemoglobin 1.6 %THgb (0.4-20.1); HCO3 ABG 30.9 mmol/L (22-26); HGB O2 Sat 92.6 % (95-100); Ionized Calcium Level - ABG 1.2 mmol/L (1.1-1.4); Oxygen Device NC; Oxygen Saturation ABG 94.1; PO2 ABG 65.3 mmHg (80.0-100.0); Total Hemoglobin 13.7 g/dL (12-16)
[2024-05-24] MEDS: albuterol 2.5 mg/3 mL Neb INHALATION (04:20)
[2024-05-24] MEDS: ipratropium-albuterol 3 mL Neb INHALATION ×3 (04:20→20:38)
[2024-05-24 04:24] LABS: Lactic Sepsis W/Reflex 1.8 mmol/L (0.5-2.2)
[2024-05-24 04:27] LABS: Troponin(5th) Baseline 10 ng/L (0-10)
[2024-05-24 04:35] LABS: NT Pro B Type Natriuretic Pept < 36 pg/mL (0-125); Procalcitonin 0.08 ng/mL (0-0.5)
[2024-05-24 04:44] LABS: Covid PCR NEGATIVE (Negative); Influenza A NEGATIVE (Negative); Influenza B NEGATIVE (Negative); Respiratory Syncytial Virus Ce NEGATIVE (Negative)
[2024-05-24 04:47] LABS: Alanine Aminotransferase 8 U/L (0-33); Albumin Level 3.6 g/dL (3.5-5.2); Alkaline Phosphatase 109 U/L (35-105); Aspartate Amino Transferase 14 U/L (0-32); Blood Urea Nitrogen 5 mg/dL (6-20); C Reactive Protein 57.1 mg/L (0.0-4.9); Carbon Dioxide 29 mmol/L (22-29); Chloride 95 mmol/L (98-107); Creatinine Clr Calc Pharmacy 95.9702; Globulin 4.2 g/dL (1.3-4.6); Glucose 106 mg/dL (65-115); Osmolality Calculated 276 mOsm/kg (285-295); Sodium 134 mmol/L (136-145); Total Bilirubin 0.4 mg/dL (0.15-1.2); Total Protein 7.8 g/dL (6.6-8.7)
--- NOTE | 2024-05-24 04:50 | CTR_ITS ---
PROCEDURE INFORMATION: Exam: CTA Chest With Contrast Exam date and time: 05/24/2024 5:12 AM Age: 59 years old Clinical indication: Shortness of breath; Additional info: Hypoxemia, tachycardia TECHNIQUE: Imaging protocol: Computed tomographic angiography of the chest with contrast. Exam focused on the arteries. 3D rendering (Not supervised by radiologist): MIP and/or 3D reconstructed images were created by the technologist. Radiation optimization: All CT scans at this facility use at least one of these dose optimization techniques: automated exposure control; mA and/or kV adjustment per patient size (includes targeted exams where dose is matched to clinical indication); or iterative reconstruction. Contrast material: OMNI 350; Contrast volume: 75 ml; Contrast route: INTRAVENOUS (IV); COMPARISON: CR (CHEST, ) 05/24/2024 4:16 AM RADIATION DOSE METRICS: Total DLP (mGy-cm): 179.72 FINDINGS: Pulmonary arteries: Normal. No pulmonary emboli. Aorta: Unremarkable. No aortic aneurysm. No aortic dissection. Other arteries: Due to extensive respiratory motion only the central arteries can be accurately evaluated. Lungs: Extremely extensive ground-glass and consolidative infiltrates throughout the lungs bilaterally worse at the lung bases. Air bronchograms are present. No definite pleural effusion. Pleural spaces: See Lungs finding. Heart: Unremarkable. No cardiomegaly. No pericardial effusion. Coronary arteries: Coronary artery calcifications. Lymph nodes: Moderate extensive central and bilateral hilar adenopathy is most likely reactive. Bones/joints: Unremarkable. No acute fracture. Soft tissues: Unremarkable. CT/CT angio chest PE protcl [id number] IMPRESSION: Extensive bilateral pneumonia. No evidence of embolus.
[2024-05-24] MEDS: methylPREDNISolone sod succ 125 mg/2 mL INJ IVP (04:51)
[2024-05-24] MEDS: linezolid premix 600 MG/300 ML PREMIX 300 MG IV (04:51)
[2024-05-24] MEDS: cefepime 2,000 MG in sodium chloride 0.9% (plus) 50 ML 100 MG IV (04:52)
[2024-05-24] MEDS: iohexol 350 mg/mL 500 mL Btl (per mL) IV (05:26)
--- NOTE | 2024-05-24 06:23 | ECG_ITS ---
[facility] Test Date: 2024-05-24 Pat Name: Abby Tomlinson Department: Room: Gender: Female Bioprocess Development Engineer: : [id number] Requested By: Angelica Griffith Order Number: [id number] Nichole MD: Ant Hernandez M.D. Measurements Intervals [place] Rate: 89 P: 39 UT: 116 QRS: 50 QRSD: 82 T: 61 QT: 368 QTc: 449 Interpretive Statements SINUS RHYTHM WITH SHORT UT INTERVAL LEFT ATRIAL ENLARGEMENT [-0.15mV P-WAVE IN V1/V2] NONSPECIFIC T-WAVE ABNORMALITY Compared to ECG 10/09/2023 21:02:37 Short UT interval now present T-wave abnormality now present Electronically Signed On 05-24-2024 21:40:36 CDT by Ant Hernandez M.D. [id number]
[2024-05-24 06:30] LABS: Troponin 5 2HR 9.02 ng/L (0-10)
[2024-05-24 06:32] LABS: Troponin 5 2HR Delta -0.98 ABS# (0-10)
--- NOTE | 2024-05-24 09:35 | P.HP_ITS ---
Providers/Chief Complaint 2 Admitting Physician: Shekhar Diamond MD Chief Complaint: SOB History of Present Illness Abby Tomlinson is a 59 year old female presenting from [facility] from the dementia unit. She was found this morning hypoxic. She reports a cough for at least the last several days. She has felt hot, and sweaty at times. She had COVID approximately 6 weeks ago. There was then concern of pneumonia and she took azithromycin, followed by doxycycline. Initial treatment ended on May 11 and then she was retreated. No obvious aspiration when eating. No known pre-existing lung problems prior to COVID, although does have a family history of pulmonary fibrosis. Denies any vomiting. Review of Systems 2 General: Reports: 10 or more systems reviewed and unremarkable except in HPI and below Card: Denies: chest pain Resp: Reports: dyspnea and non-productive cough GI: Denies: abdominal pain, nausea, vomiting, hematochezia or melena Medications/Allergies Home Medications Medication Instructions Recorded Confirmed Last Taken Type epinephrine 0.3 mg/0.3 mL 0.3 mg (0.3 mL) IM Q10M PRN 01/31/22 05/24/24 Unknown Rx injection, auto-injector (EpiPen) anaphylaxis #1 ea benztropine 1 mg tablet 1 mg PO BID PRN Mild 11/10/23 05/24/24 Unknown Rx Extrapyramidal symptoms 30 days #60 tabs citalopram 20 mg tablet 20 mg PO DAILY 30 days #30 tabs 11/10/23 05/24/24 Unknown Rx cyclobenzaprine 5 mg tablet 5 mg PO BID PRN muscle spasms 01/04/24 05/24/24 Unknown History quetiapine 50 mg tablet 50 mg PO 0900,2100 30 days #180 01/04/24 05/24/24 Unknown Rx tabs acetaminophen 325 mg tablet 650 mg PO Q4H PRN general 05/24/24 05/24/24 Unknown History discomfort albuterol sulfate 2.5 mg/3 mL 2.5 mg inhalation Q4H PRN 05/24/24 05/24/24 Unknown History (0.083 %) solution for nebulization Shortness Of Breath alprazolam 0.25 mg tablet (Xanax) 0.25 mg PO BID PRN Anxiety 05/24/24 05/24/24 Unknown History bisacodyl 5 mg tablet 10 mg PO DAILY PRN Constipation 05/24/24 05/24/24 Unknown History dextran 70-hypromellose eye drops 2 drp ophthalmic (eye) Q4H PRN Dry 05/24/24 05/24/24 Unknown History in a dropperette (Artificial Tears Eyes (PF) drops in a dropperette) donepezil 5 mg tablet (Aricept) 5 mg PO QAM 05/24/24 05/24/24 Unknown History menthol 5 mg lozenges (Cough Drops) 5 mg mucous membrane Q4H PRN Cough 05/24/24 05/24/24 Unknown History Allergies Allergy/AdvReac Type Severity Reaction Status Date / Time Alpha-Gal Allergy ALGY-Anaphy Verified 01/04/24 09:52 (Isilwjomd-Gqudo-0,3-Gala laxis PFSH Acute 2 PFSH: Medical History (Updated 05/24/24 @ 10:12 by Shekhar Diamond MD) Lewy body dementia with behavioral disturbance Family History Mother Lung disease Social History (Updated 05/24/24 @ 10:08 by Shekhar Diamond MD) Smoking and tobacco/nicotine status: former use of tobacco/nicotine Alcohol intake: never Other PFSH information: Supplemental PFSH Information: Family history, mother, of idiopathic pulmonary fibrosis Vitals/I&O/Wt Last Vital Signs Temp 98.3 F 05/24/24 03:49 Pulse 90 05/24/24 09:15 Resp 20 H 05/24/24 09:15 BP 104/66 05/24/24 09:15 Pulse Ox 92 05/24/24 09:15 O2 Del Method Nasal Cannula 05/24/24 09:15 O2 Flow Rate 5 05/24/24 09:15 05/23/24 05/24/24 05/24/24 22:59 06:59 14:59 Intake Total 50 / 50 Balance 50 / 50 Weight last 48 hrs Weight 64.864 kg Physical Exam 2 Narrative: General Exam is a white female, with tachypnea, on 5 L of oxygen with a saturation of 92%. At least mild respiratory distress is noted. HEENT: Atraumatic normocephalic. Oropharynx is clear Neck is supple no lymphadenopathy thyromegaly Cardiovascular regular rate and rhythm, no murmur Lungs few crackles bilaterally. No wheezing Abdomen is soft nontender with positive bowel sounds. No obvious organomegaly exams deferred Extremities no cyanosis, or edema, cap refill brisk Skin no rash Neuro no focal deficits Data 05/24/24 03:57 05/24/24 03:57 Other Labs: CTA no pulmonary embolism. Extensive bilateral infiltrates consistent with pneumonia. I reviewed this as well. ABG demonstrates pH 7.44, pCO2 46, pO2 65 on 4 L LFTs are normal with the exception of alk phos of 109 Troponin is 10 with repeat of 9 Lactic acid 1.8 CRP 57 Albumin and calcium are normal Urinalysis I will order TSH I will order COVID influenza RSV PCR is negative Chest x-ray by my read extensive infiltrates bilaterally consistent with pneumonia EKG demonstrates sinus rhythm, normal axis, biphasic P wave V1 consistent with left atrial enlargement Blood culture, sputum culture, sputum MRSA ordered Micro: Microbiology 05/24/24 04:49 Blood Culture - Preliminary Blood SPECIMEN COLLECTED 05/24/24 04:00 Blood Culture - Preliminary Blood SPECIMEN COLLECTED A&P Assessment and plan (1) Pneumonia: Patient with extensive bilateral pneumonia, status post COVID 6 weeks ago and treatment with Zithromax and doxycycline which would have treated atypical organisms. Also a family history of pulmonary fibrosis. No prior x-rays to compare to. Secondary to severity of pneumonia requiring 5 to 6 L of oxygen with moderate tachypnea and chance of worsening steroids were given. Continue Solu-Medrol 40 mg IV every 24 hours IV antibiotics consisting of vancomycin and Zosyn Speech therapy consultation for consideration of aspiration MRSA PCR, sputum culture, blood culture HIV Nebs as needed Monitor closely for improvement Check urinalysis CTA was performed demonstrating no pulmonary embolism Check BNP Check TSH (2) Acute respiratory failure: Currently on 5 L of oxygen, titrate to keep sat greater than 90% (3) Lewy body dementia with behavioral disturbance: Dementia may complicate treatment Close monitoring Telemetry, continuous sat monitor Plan Full code Lovenox for DVT prophylaxis Attestations 2 Medical Necessity Statement*: Will need greater than 2 midnight stay for evaluation and treatment of extensive pneumonia, requiring significant amount of oxygen, failing outpatient treatment x 2 Diagnoses Pneumonia J18.9 Acute respiratory failure J96.00 Lewy body dementia with behavioral disturbance G31.83; F02.818 Time Spent (min) 56
--- NOTE | 2024-05-24 10:00 | ECG_ITS ---
[facility] Test Date: 2024-05-24 Pat Name: Abby Tomlinson Department: Room: Gender: Female Ultrasound Tech: : 1965 Requested By: Angelica Griffith Order Number: [id number] Nichole MD: Ant Hernandez M.D. Measurements Intervals [place] Rate: 83 P: 35 ND: 116 QRS: 28 QRSD: 91 T: 64 QT: 387 QTc: 455 Interpretive Statements SINUS RHYTHM WITH SHORT ND INTERVAL POSSIBLE LEFT ATRIAL ENLARGEMENT [-0.1mV P-WAVE IN V1/V2] NONSPECIFIC T-WAVE ABNORMALITY Compared to ECG 05/24/2024 06:23:56 No significant changes Electronically Signed On 05-24-2024 21:42:32 CDT by Ant Hernandez M.D. [id number]
[2024-05-24 10:15] LABS: Troponin 5 6HR 7.39 ng/L (0-10)
[2024-05-24 10:28] LABS: Troponin 5 6HR Delta -2.61 ng/L (0-12)
[2024-05-24 11:07] LABS: NT Pro B Type Natriuretic Pept 41 pg/mL (0-125); Thyroid Stimulating Hormone 0.41 uIU/mL (0.27-4.20)
--- NOTE | 2024-05-24 11:31 | PHA.VACGOAL ---
Vancomycin Goal - Goal Vancomycin Goal:: 15-20 mg/L Vancomycin Indication:: Pneumonia - Therapy Current therapy:: Pip/Tazo Day of therpy:: Day [1]of [] . Actual body weight (kg): 64.864 kg - Data Labs: WBC 11.61 10^3/uL (3.29-11.43) H 05/24/24 03:57 RBC 4.67 10^6/uL (3.85-5.65) 05/24/24 03:57 Hgb 14.10 g/dL (11.27-16.99) 05/24/24 03:57 Hct 44.5 % (36-47) 05/24/24 03:57 MCV 95.3 fl (85-98) 05/24/24 03:57 MCH 30.2 pg (27-33) 05/24/24 03:57 MCHC 31.7 g/dL (30-55) 05/24/24 03:57 RDW 13.7 % (12.1-15.1) 05/24/24 03:57 Sodium 134 mmol/L (136-145) L 05/24/24 03:57 Potassium 4.0 mmol/L (3.5-5.1) 05/24/24 03:57 Chloride 95 mmol/L (98-107) L 05/24/24 03:57 Carbon Dioxide 29 mmol/L (22-29) 05/24/24 03:57 Anion Gap 14.0 (5-19) 05/24/24 03:57 BUN 5 mg/dL (6-20) L 05/24/24 03:57 Creatinine 0.6 mg/dL (0.5-0.9) 05/24/24 03:57 GFR Calculation 103.0 mL/min (90-130) 05/24/24 03:57 Treatment plan:: new consult Regimen:: Patient is a new start of vancomycin for suspected pneumonia. Loading dose of 1500 mg ordered and started on 1250 mg q12h with expected trough of 18.0 mg/dL. Pharmacy will continue to monitor.
[2024-05-24 12:16] LABS: HIV 1 & 2 Antibody Non-Reactive (Non-Reactiv); HIV 1 & 2 Antigen Non-Reactive (Non-Reactiv)
[2024-05-24] MEDS: vancomycin 1,500 MG/300 ML PIGGYBACK 200 MG IV (12:34)
[2024-05-24] MEDS: enoxaparin 40 mg/0.4 mL Syringe SUBCUT (12:34)
[2024-05-24] MEDS: piperacillin-tazobactam 3.375 GM in sodium chloride 0.9% (plus) 50 ML IV ×2 (14:24→22:42)
[2024-05-24] MEDS: ALPRAZolam 0.5 mg Tablet 0.25 MG PO (17:37)
--- NOTE | 2024-05-24 18:41 | PC.NURSE ---
Called report to Sapna in ICU at 181
[2024-05-24] MEDS: quetiapine 25 mg Tablet 50 MG PO (21:44)
[2024-05-24] MEDS: sodium chloride 0.9% 1,000 ML 50 ML IV (21:45)
[2024-05-24] MEDS: vancomycin 1,250 MG/250 ML PIGGYBACK 166.67 MG IV (21:45)
[2024-05-25] VITALS (49 sets, daily range): BP systolic 77–110; BP diastolic 49–72; PULSE 54–94; RESP 15–40; TEMP 36.6–36.8; O2SAT 82–100
[2024-05-25] MEDS: ipratropium-albuterol 3 mL Neb INHALATION ×4 (02:07→20:28)
[2024-05-25] MEDS: sodium chloride 0.9% 500 ML 999 ML IV (03:08)
--- NOTE | 2024-05-25 03:38 | PC.NURSE ---
Dr. Jaquez notified regarding hypotension, Cheetah test done and showed SVI 19.4% Fluid Responsive, order received for 500ml ns fluid bolus. Also notified Dr. Jaquez that patient hasn't voided all night and bladder scan shows 600mls. Order received for prakash catheter.
[2024-05-25 04:15] LABS: Basophils % 0.2 %; Lymphocytes # 1.5 10^3/uL (0.8-4.8); Lymphocytes % 16.2 %; Mean Corpuscular HGB Conc 31.4 g/dL (30-55); Mean Corpuscular Hemoglobin 29.9 pg (27-33); Mean Corpuscular Volume 95.4 fl (85-98); Monocytes # 0.7 10^3/uL (0.2-0.9); Monocytes % 7.8 %; Neutrophils % 75.4 %; Nucleated Red Blood Cells % 0 %; Platelet Count 233 10^3/cmm (157-399); Red Blood Count 3.88 10^6/uL (3.85-5.65); Red Cell Distribution Width 13.7 % (12.1-15.1); White Blood Count 9.28 10^3/uL (3.29-11.43)
[2024-05-25 04:41] LABS: Alanine Aminotransferase 6 U/L (0-33); Albumin Level 3.1 g/dL (3.5-5.2); Alkaline Phosphatase 80 U/L (35-105); Anion Gap 10.2 (5-19); Aspartate Amino Transferase 9 U/L (0-32); Blood Urea Nitrogen 8 mg/dL (6-20); Calcium 8.1 mg/dL (8.5-10.5); Carbon Dioxide 31 mmol/L (22-29); Chloride 105 mmol/L (98-107); Creatinine Clr Calc Pharmacy 110.2085; Globulin 3.4 g/dL (1.3-4.6); Glomerular Filtration Rate 127.2 mL/min (90-130); Glucose 114 mg/dL (65-115); Magnesium 2.1 mg/dL (1.7-2.3); Osmolality Calculated 293 mOsm/kg (285-295); Potassium 4.2 mmol/L (3.5-5.1); Sodium 142 mmol/L (136-145); Total Bilirubin 0.2 mg/dL (0.15-1.2); Total Protein 6.5 g/dL (6.6-8.7)
[2024-05-25 04:43] LABS: C Reactive Protein 44.3 mg/L (0.0-4.9)
[2024-05-25] MEDS: piperacillin-tazobactam 3.375 GM in sodium chloride 0.9% (plus) 50 ML IV ×3 (05:46→23:35)
[2024-05-25] MEDS: donepezil 5 MG Tablet PO (05:46)
--- NOTE | 2024-05-25 07:55 | PC.NURSE ---
Dr. Diamond rounding bedside discussing POC for patient. Gave verbal orders to increase PRN xanax, see MAR.
--- NOTE | 2024-05-25 08:09 | P.PN_ITS ---
Subjective 2 Subjective: Moved to ICU yesterday secondary to increased oxygen need. Feels anxious today. Medications: Reviewed: Yes Vitals/I&O/Wt Last Vital Signs Temp 98.2 F 05/25/24 06:00 Pulse 57 L 05/25/24 06:00 Resp 20 H 05/25/24 05:30 BP 98/61 05/25/24 06:00 Pulse Ox 97 05/25/24 05:30 O2 Del Method Oxymask 05/25/24 02:00 O2 Flow Rate 12 05/25/24 02:00 05/24/24 05/25/24 05/25/24 22:59 06:59 14:59 Intake Total 350 / 890 1068.333 / 1958.333 Output Total 500 / 500 750 / 1250 Balance -150 / 390 318.333 / 708.333 Weight last 48 hrs Weight 59.874 kg Weight 58.542 kg Weight 64.864 kg Physical Exam 2 Narrative: General Exam is a white female, on 6 L of oxygen. When I visited her earlier while sleeping her respiratory rate was around 20. It is now around mid 30 awake and she feels anxious. Oxygen saturations have not changed. She is on 6 L of oxygen per facemask on the wall. Neck is supple no lymphadenopathy thyromegaly Cardiovascular regular rate and rhythm, no murmur Lungs few crackles bilaterally. No wheezing Abdomen is soft nontender with positive bowel sounds. No obvious organomegaly Extremities no cyanosis, or edema, cap refill brisk Urinary Catheter Management: Shelley: Cath Placed During This Visit: yes Reason for Continuing Indwelling Catheter: Acute Urinary Retention or Obstruction Urinary Catheter Date of Insertion: 05/25/24 Urinary Catheter Time of Insertion: 03:30 Data 05/25/24 03:43 05/25/24 03:43 Micro: Microbiology 05/24/24 04:49 Blood Culture - Preliminary Blood NEGATIVE TO DATE 05/24/24 04:00 Blood Culture - Preliminary Blood NEGATIVE TO DATE A&P Assessment and plan (1) Pneumonia: Patient with extensive bilateral pneumonia, status post COVID 6 weeks ago and treatment with Zithromax and doxycycline which would have treated atypical organisms. Also a family history of pulmonary fibrosis. No prior x-rays to compare to. Secondary to severity of pneumonia steroids initiated. Continue Solu-Medrol 40 mg IV every 24 hours IV antibiotics consisting of vancomycin, Zosyn, Levaquin. Speech therapy consultation for consideration of aspiration appreciated MRSA PCR, sputum culture, blood culture all pending Legionella antigen urine HIV negative Continue nebs Monitor closely for improvement Check urinalysis CTA was performed demonstrating no pulmonary embolism BNP and TSH were normal Mucinex, incentive spirometry added Add clear liquids, monitor to make sure aspiration does not occur secondary to increased respiratory rate. (2) Acute respiratory failure: Currently on 6 L of oxygen, titrate to keep sat greater than 90% Moved to ICU secondary to desaturation with minimal movement. Shelley placed. (3) Lewy body dementia with behavioral disturbance: Dementia may complicate treatment Close monitoring Telemetry, continuous sat monitor With patient's significant anxiety, increase her home Xanax Plan Full code Lovenox for DVT prophylaxis Attestations 2 Medical Necessity Statement*: Needs continued hospital stay for IV antibiotics secondary to pneumonia, failing outpatient treatment in this patient with hypoxemic respiratory failure Diagnoses Pneumonia J18.9 Acute respiratory failure J96.00 Lewy body dementia with behavioral disturbance G31.83; F02.818 Time Spent (min) 31
[2024-05-25] MEDS: quetiapine 25 mg Tablet 50 MG PO ×2 (08:10→20:17)
[2024-05-25] MEDS: citalopram 20 mg Tablet PO (08:10)
[2024-05-25] MEDS: ALPRAZolam 0.5 mg Tablet PO ×2 (08:10→15:58)
[2024-05-25] MEDS: guaiFENesin 600 mg Tablet PO ×2 (08:10→18:11)
[2024-05-25] MEDS: methylPREDNISolone sod succ 40 mg/mL INJ IVP (08:10)
[2024-05-25] MEDS: levofloxacin-dextrose 5 % 750 MG/150 ML PREMIX 100 MG IV (08:11)
[2024-05-25] MEDS: vancomycin 1,250 MG/250 ML PIGGYBACK 166.66 MG IV (08:27)
[2024-05-25 09:49] LABS: Bilirubin Urine Negative (Negative); Blood Urine 1+ (Negative); Glucose Urine UA Negative (Normal); Ketones Urine Negative (Negative); Leukocyte Esterase Urine Trace (Negative); Nitrate Urine Negative (Negative); Protein Urine 1+ (Negative); Specific Gravity, Urine 1.026 (1.005-1.030); Urine Appearance Cloudy (CLEAR); Urine Color Yellow (Yellow); pH Urine 5.5 (5-7)
[2024-05-25 09:51] LABS: Bacteria Urine None Seen /hpf; Hyaline Casts Urine 4.52 /lpf; Squamous Epithelial Cell Urine 0-5 /hpf (0-5); WBC Urine 21-50 /hpf (0-5)
[2024-05-25 09:54] LABS: Add Urine Culture? Yes
[2024-05-25] MEDS: enoxaparin 40 mg/0.4 mL Syringe SUBCUT (11:03)
[2024-05-25] MEDS: vancomycin 1,250 MG/250 ML PIGGYBACK 166.67 MG IV (20:17)
[2024-05-26] VITALS (58 sets, daily range): BP systolic 78–120; BP diastolic 53–84; PULSE 52–87; RESP 13–38; TEMP 36.8–37.2; O2SAT 79–100
[2024-05-26] MEDS: polyethylene glycol 3350 Pkt 17 gm PO (01:35)
[2024-05-26] MEDS: ipratropium-albuterol 3 mL Neb INHALATION ×4 (02:03→20:04)
[2024-05-26 04:04] LABS: Basophils % 0.1 %; Eosinophils % 0.3 %; Hematocrit 35.2 % (36-47); Lymphocytes # 2.1 10^3/uL (0.8-4.8); Lymphocytes % 20.4 %; Mean Corpuscular HGB Conc 30.7 g/dL (30-55); Mean Corpuscular Hemoglobin 29.4 pg (27-33); Mean Corpuscular Volume 95.9 fl (85-98); Mean Platelet Volume 9.1 fL (7.4-10.4); Monocytes # 0.5 10^3/uL (0.2-0.9); Monocytes % 4.7 %; Neutrophils # 7.72 10^3/uL (1.8-7.7); Neutrophils % 74.2 %; Nucleated Red Blood Cells % 0 %; Platelet Count 237 10^3/cmm (157-399); Red Blood Count 3.67 10^6/uL (3.85-5.65); Red Cell Distribution Width 13.8 % (12.1-15.1)
[2024-05-26 04:25] LABS: Alanine Aminotransferase 6 U/L (0-33); Albumin Level 3.1 g/dL (3.5-5.2); Alkaline Phosphatase 75 U/L (35-105); Anion Gap 11.8 (5-19); Aspartate Amino Transferase 10 U/L (0-32); Blood Urea Nitrogen 7 mg/dL (6-20); Calcium 8.6 mg/dL (8.5-10.5); Carbon Dioxide 29 mmol/L (22-29); Chloride 105 mmol/L (98-107); Creatinine Clr Calc Pharmacy 111.2526; Globulin 3.3 g/dL (1.3-4.6); Glomerular Filtration Rate 127.2 mL/min (90-130); Glucose 104 mg/dL (65-115); Osmolality Calculated 292 mOsm/kg (285-295); Potassium 3.8 mmol/L (3.5-5.1); Sodium 142 mmol/L (136-145); Total Bilirubin 0.2 mg/dL (0.15-1.2); Total Protein 6.4 g/dL (6.6-8.7)
[2024-05-26] MEDS: piperacillin-tazobactam 3.375 GM in sodium chloride 0.9% (plus) 50 ML IV ×3 (05:40→21:50)
[2024-05-26] MEDS: donepezil 5 MG Tablet PO (05:40)
[2024-05-26] MEDS: levofloxacin-dextrose 5 % 750 MG/150 ML PREMIX 100 MG IV (05:45)
[2024-05-26] MEDS: ALPRAZolam 0.5 mg Tablet PO ×3 (07:10→20:19)
--- NOTE | 2024-05-26 07:10 | USCV_ITS ---
Abby Tomlinson Age: 59 Gender: F : 1965 Exam Date: 05/26/2024 07:49 Ordering Phys: Shekhar Diamond MD Technologist: Exam Location: [facility] [place] Indication: hypotension BP: 100 / 68 HR: 127 Rhythm: Sinus Technical Quality: Adequate MEASUREMENTS (Male / Female) Normal Values 2D ECHO LV Diastolic Diameter PLAX 3.8 cm 4.2 - 5.9 / 3.9 - 5.3 cm IVS Diastolic Thickness 1.2 cm 0.6 - 1.0 / 0.6 - 0.9 cm IVS Systolic Thickness 1.3 cm LVPW Diastolic Thickness 1.1 cm 0.6 - 1.0 / 0.6 - 0.9 cm LVPW Systolic Thickness 1.2 cm LVOT Diameter 2.0 cm LV Ejection Fraction 2D Teich 67.1 % LV Ejection Fraction MOD 4C 60.3 % LV Ejection Fraction MOD 2C 77.8 % LV Ejection Fraction 2C AL 77.9 % LA Diameter 2.7 cm RA Systolic Volume 4C AL 24.7 ml RA Systolic Volume 4C MOD 23.4 ml Aorta at Sinotubular Diameter 2.6 cm M-MODE LA Ao Ratio MM 1.5 MV E Point Septal Separation 1.3 cm AV Cusp Separation MM 2.2 cm DOPPLER AV Peak Velocity 165.0 cm/s LVOT Peak Velocity 102.0 cm/s AV Area Cont Eq vti 2.4 cm squared AV Area Cont Eq pk 2.0 cm squared MV Area PHT 3.4 cm squared Mitral E to A Ratio 0.7 TV Peak Velocity 112.0 cm/s TR Peak Velocity 117.0 cm/s TR Peak Gradient 5.5 mmHg TV Peak E Velocity 85.0 cm/s Right Atrial Pressure 3.0 mmHg Pulmonary Artery Systolic Pressu 8.5 mmHg PV Peak Velocity 95.0 cm/s FINDINGS Left Ventricle Normal left ventricular size and systolic function, EF 60%. Mild left ventricular hypertrophy. No regional wall motion abnormalities. Grade I/IV diastolic dysfunction (abnormal relaxation filling pattern), normal to mildly elevated filling pressures. Right Ventricle The right ventricle is normal in size and function. Right Atrium The right atrium is normal in size. Left Atrium Mildly increased left atrial size. Mitral Valve Mild mitral valve regurgitation. Aortic Valve Thickened aortic valve. Tricuspid Valve Trace tricuspid valve regurgitation. Pulmonic Valve No gross abnormalities noted Pericardium Normal pericardium without effusion. Aorta Normal ascending aorta dimension. IVC Inferior vena cava not visualized. CONCLUSIONS Normal left ventricular size and systolic function, EF 60%. Mild left ventricular hypertrophy. No regional wall motion abnormalities. Grade I/IV diastolic dysfunction (abnormal relaxation filling pattern), normal to mildly elevated filling pressures. Mildly increased left atrial size. Trace tricuspid valve regurgitation. Estimated pulmonary artery peak systolic pressure within normal limits Mild mitral valve regurgitation. There is no pericardial effusion. No similar previous studies are available for comparison Dr Ant Hernandez MD [facility] (Electronically Signed) Final Date: 26 May 2024 09:55 S
[2024-05-26] MEDS: quetiapine 25 mg Tablet 50 MG PO ×2 (08:27→20:19)
[2024-05-26] MEDS: citalopram 20 mg Tablet PO (08:28)
[2024-05-26] MEDS: methylPREDNISolone sod succ 40 mg/mL INJ IVP (08:28)
[2024-05-26] MEDS: guaiFENesin 600 mg Tablet PO ×2 (08:28→16:19)
[2024-05-26] MEDS: vancomycin 1,250 MG/250 ML PIGGYBACK 166 MG IV (08:28)
--- NOTE | 2024-05-26 09:13 | P.PN_ITS ---
Subjective 2 Subjective: Went up to 40% FiO2 last night. Extensive discussion with sister, who is her medical decision-maker. She reports the patient, and her made a DNR order on nursing facility admission and this should be honored. I confirmed this with the nursing facility as well. No chest pain. Does not feel swollen. Feels like her breathing is better. Medications: Reviewed: Yes Vitals/I&O/Wt Last Vital Signs Temp 98.9 F 05/26/24 05:26 Pulse 73 05/26/24 07:43 Resp 22 H 05/26/24 07:43 BP 90/58 05/26/24 05:00 Pulse Ox 93 05/26/24 07:43 O2 Del Method Heated High Flow 05/26/24 07:41 O2 Flow Rate 30 05/26/24 07:43 FiO2 41 05/26/24 07:43 05/25/24 05/26/24 05/26/24 22:59 06:59 14:59 Intake Total 300 / 1509.167 50 / 1559.167 150 / 150 Output Total 950 / 950 2600 / 3550 Balance -650 / 559.167 -2550 / -1990.833 150 / 150 Weight last 48 hrs Weight 59.874 kg Weight 59.874 kg Weight 58.542 kg Physical Exam 2 Narrative: General Exam is a white female, on 40% FiO2 by heated high flow, 30 L Neck is supple no lymphadenopathy thyromegaly Cardiovascular regular rate and rhythm, no murmur Lungs few crackles bilaterally. No wheezing Abdomen is soft nontender with positive bowel sounds. No obvious organomegaly Extremities no cyanosis, or edema, cap refill brisk Urinary Catheter Management: Shelley: Cath Placed During This Visit: yes Reason for Continuing Indwelling Catheter: Accurate Measurement of Urinary Output in Critically Ill Patients Urinary Catheter Date of Insertion: 05/25/24 Urinary Catheter Time of Insertion: 03:30 Data 05/26/24 03:38 05/26/24 03:38 Micro: Microbiology 05/25/24 08:22 Urine Culture - Preliminary Urine,Clean Catch 05/25/24 08:22 Legionella Urinary Antigen - Final Urine,Clean Catch 05/24/24 04:49 Blood Culture - Preliminary Blood NEGATIVE TO DATE A&P Assessment and plan (1) Pneumonia: Patient with extensive bilateral pneumonia, status post COVID 6 weeks ago and treatment with Zithromax and doxycycline which would have treated atypical organisms. Also a family history of pulmonary fibrosis. No prior x-rays to compare to. Secondary to severity of pneumonia steroids initiated. Continue Solu-Medrol 40 mg IV every 24 hours IV antibiotics consisting of vancomycin, Zosyn, Levaquin. Sputum culture not yet obtained. Speech therapy consultation for consideration of aspiration appreciated MRSA PCR pending, blood culture negative to date Legionella antigen urine negative HIV negative Continue nebs Monitor closely for improvement Urinalysis performed, culture pending CTA was performed demonstrating no pulmonary embolism BNP and TSH were normal Mucinex, incentive spirometry added No evidence of aspiration 2 direct relatives with idiopathic pulmonary fibrosis. Unknown if this is an underlying condition. CBC, BMP tomorrow Discontinue fluids (2) Acute respiratory failure: Currently on 40% FiO2, try to wean today. If less decompensation with movement consider discontinuing Shelley (3) Lewy body dementia with behavioral disturbance: Dementia may complicate treatment Close monitoring With patient's significant anxiety, increase her home Xanax Plan Full code Lovenox for DVT prophylaxis Attestations 2 Medical Necessity Statement*: Needs continued hospitalization secondary to severe pneumonia requiring IV antibiotics, IV steroids Diagnoses Pneumonia J18.9 Acute respiratory failure J96.00 Lewy body dementia with behavioral disturbance G31.83; F02.818 Time Spent (min) 26
[2024-05-26 12:04] LABS: Methicillin-Resist S.aureu PCR NOT DETECTED (NOT DETECTED)
[2024-05-26] MEDS: enoxaparin 40 mg/0.4 mL Syringe SUBCUT (12:45)
[2024-05-26] MEDS: vancomycin 1,500 MG/300 ML PIGGYBACK 200 MG IV (20:20)
[2024-05-27] VITALS (42 sets, daily range): BP systolic 83–112; BP diastolic 55–70; PULSE 56–88; RESP 16–35; TEMP 36.2–36.8; O2SAT 87–100; BMI 22.6
[2024-05-27] MEDS: ipratropium-albuterol 3 mL Neb INHALATION ×4 (01:54→20:28)
[2024-05-27] MEDS: ALPRAZolam 0.5 mg Tablet PO (04:19)
[2024-05-27 04:22] LABS: Basophils % 0.4 %; Eosinophils # 0.1 10^3/uL (0.0-0.8); Eosinophils % 0.8 %; Hematocrit 38.3 % (36-47); Lymphocytes # 2.1 10^3/uL (0.8-4.8); Lymphocytes % 19.5 %; Mean Corpuscular HGB Conc 30.8 g/dL (30-55); Mean Corpuscular Hemoglobin 30.5 pg (27-33); Monocytes # 0.6 10^3/uL (0.2-0.9); Monocytes % 5.7 %; Neutrophils # 7.77 10^3/uL (1.8-7.7); Nucleated Red Blood Cells % 0 %; Platelet Count 237 10^3/cmm (157-399); Red Blood Count 3.87 10^6/uL (3.85-5.65); White Blood Count 10.65 10^3/uL (3.29-11.43)
[2024-05-27 04:43] LABS: Anion Gap 12.9 (5-19); Blood Urea Nitrogen 6 mg/dL (6-20); Calcium 8.8 mg/dL (8.5-10.5); Carbon Dioxide 30 mmol/L (22-29); Chloride 104 mmol/L (98-107); Creatinine Clr Calc Pharmacy 111.2526; Glomerular Filtration Rate 127.2 mL/min (90-130); Glucose 94 mg/dL (65-115); Osmolality Calculated 293 mOsm/kg (285-295); Potassium 3.9 mmol/L (3.5-5.1); Sodium 143 mmol/L (136-145)
[2024-05-27] MEDS: piperacillin-tazobactam 3.375 GM in sodium chloride 0.9% (plus) 50 ML IV ×3 (05:43→23:08)
[2024-05-27] MEDS: donepezil 5 MG Tablet PO (05:43)
[2024-05-27] MEDS: levofloxacin-dextrose 5 % 750 MG/150 ML PREMIX 100 MG IV (05:45)
--- NOTE | 2024-05-27 08:50 | P.PN_ITS ---
Subjective 2 Subjective: Abby reports she is doing okay today. Less short of breath. Down to 5 L of oxygen on green cannula. Less coughing. Medications: Reviewed: Yes Vitals/I&O/Wt Last Vital Signs Temp 97.7 F 05/27/24 05:19 Pulse 57 L 05/27/24 05:32 Resp 25 H 05/27/24 04:24 BP 92/70 05/27/24 04:24 Pulse Ox 99 05/27/24 04:24 O2 Del Method Nasal Cannula 05/27/24 04:24 O2 Flow Rate 5 05/27/24 04:24 FiO2 40 05/26/24 13:03 05/26/24 05/27/24 05/27/24 22:59 06:59 14:59 Intake Total 1550 / 2050 150 / 2200 150 / 150 Output Total 2500 / 2500 1050 / 3550 Balance -950 / -450 -900 / -1350 150 / 150 Weight last 48 hrs Weight 59.874 kg Weight 59.874 kg Physical Exam 2 Narrative: General Exam is a white female, currently on 5 L Neck is supple no lymphadenopathy thyromegaly Cardiovascular regular rate and rhythm, no murmur Lungs relatively clear Abdomen is soft nontender with positive bowel sounds. No obvious organomegaly Extremities no cyanosis, or edema, cap refill brisk Urinary Catheter Management: Shelley: Cath Placed During This Visit: yes Reason for Continuing Indwelling Catheter: Accurate Measurement of Urinary Output in Critically Ill Patients Urinary Catheter Date of Insertion: 05/25/24 Urinary Catheter Time of Insertion: 03:30 Data 05/27/24 03:52 05/27/24 03:52 Micro: Microbiology 05/25/24 08:22 Urine Culture - Preliminary Urine,Clean Catch A&P Assessment and plan (1) Pneumonia: Patient with extensive bilateral pneumonia, status post COVID 6 weeks ago and treatment with Zithromax and doxycycline which would have treated atypical organisms. Also a family history of pulmonary fibrosis. No prior x-rays to compare to. Secondary to severity of pneumonia steroids initiated. Continue Solu-Medrol 40 mg IV every 24 hours IV antibiotics consisting of vancomycin, Zosyn, Levaquin. Sputum culture not yet obtained. Speech therapy consultation for consideration of aspiration appreciated MRSA PCR negative. Discontinue vancomycin today, blood culture negative to date Legionella antigen urine negative HIV negative Continue nebs Monitor closely for improvement Urinalysis performed, culture pending CTA was performed demonstrating no pulmonary embolism BNP and TSH were normal Mucinex, incentive spirometry added No evidence of aspiration 2 direct relatives with idiopathic pulmonary fibrosis. Unknown if this is an underlying condition. CBC, BMP tomorrow (2) Acute respiratory failure: Currently on 40% FiO2, try to wean today. If less decompensation with movement consider discontinuing Shelley (3) Lewy body dementia with behavioral disturbance: Dementia may complicate treatment Close monitoring With patient's significant anxiety, increase her home Xanax Plan Full code Lovenox for DVT prophylaxis Okay for transfer out of ICU Attestations 2 Medical Necessity Statement*: Needs continued hospitalization secondary to need for IV antibiotics for extensive pneumonia. Diagnoses Pneumonia J18.9 Acute respiratory failure J96.00 Lewy body dementia with behavioral disturbance G31.83; F02.818
[2024-05-27] MEDS: guaiFENesin 600 mg Tablet PO ×2 (08:54→17:30)
[2024-05-27] MEDS: methylPREDNISolone sod succ 40 mg/mL INJ IVP (08:54)
[2024-05-27] MEDS: quetiapine 25 mg Tablet 50 MG PO ×2 (08:54→20:23)
[2024-05-27] MEDS: citalopram 20 mg Tablet PO (08:54)
[2024-05-27] MEDS: acetaminophen 325 mg Tablet 650 MG PO (08:58)
[2024-05-27] MEDS: enoxaparin 40 mg/0.4 mL Syringe SUBCUT (12:59)
--- NOTE | 2024-05-27 14:51 | PC.NURSE ---
Transfer Note Patient transferred to med-surg room 254-1 from ICU via wheelchair. Handoff report given to JORGE Palacio. Patient oriented to environment and equipment. Covering service notified. Orders reviewed and will continue to monitor. Upon transfer patient on 4LNC no wounds or skin issues noted at this time. Patient belongings include black glasses, leopard leggings, and socks.
[2024-05-28] VITALS (12 sets, daily range): BP systolic 101–125; BP diastolic 63–76; PULSE 66–85; RESP 17–22; TEMP 36.3–36.8; O2SAT 87–97
[2024-05-28] MEDS: donepezil 5 MG Tablet PO (05:54)
[2024-05-28] MEDS: levofloxacin-dextrose 5 % 750 MG/150 ML PREMIX 100 MG IV (05:54)
[2024-05-28] MEDS: piperacillin-tazobactam 3.375 GM in sodium chloride 0.9% (plus) 50 ML IV ×3 (06:47→22:14)
[2024-05-28] MEDS: ipratropium-albuterol 3 mL Neb INHALATION ×3 (07:15→20:38)
[2024-05-28] MEDS: quetiapine 25 mg Tablet 50 MG PO ×2 (07:51→20:22)
[2024-05-28] MEDS: citalopram 20 mg Tablet PO (07:52)
[2024-05-28] MEDS: methylPREDNISolone sod succ 40 mg/mL INJ IVP ×2 (07:52→23:28)
[2024-05-28] MEDS: guaiFENesin 600 mg Tablet PO ×2 (07:52→17:03)
[2024-05-28] MEDS: enoxaparin 40 mg/0.4 mL Syringe SUBCUT (10:53)
[2024-05-28] MEDS: ALPRAZolam 0.5 mg Tablet PO (18:20)
--- NOTE | 2024-05-28 22:23 | P.PN_ITS ---
Subjective 2 Subjective: She has been getting somewhat anxious feeling air hunger, which feels her anxiety. Having some cough. Producing some phlegm which she says she brings up easily. Vitals/I&O/Wt Last Vital Signs Temp 98.3 F 05/28/24 20:00 Pulse 70 05/28/24 20:49 Resp 20 H 05/28/24 20:38 BP 101/74 05/28/24 20:00 Pulse Ox 97 05/28/24 20:38 O2 Del Method High Flow Nasal Cannula 05/28/24 20:38 O2 Flow Rate 6 05/28/24 20:38 FiO2 40 05/26/24 13:03 05/28/24 05/28/24 05/28/24 06:59 14:59 22:59 Intake Total 50 / 1020 920 / 920 50 / 970 Output Total 600 / 600 Balance 50 / 20 320 / 320 50 / 370 Weight last 48 hrs Weight 60.464 kg Weight 59.874 kg Physical Exam 2 Narrative: Accompanied by her sister. Const: COMMON NORMALS: patient oriented x3 and alert GENERAL APPEARANCE: c ooperative ORIENTATION/CONSCIOUSNESS: Yes awake HENMT: COMMON NORMALS: oropharynx normal Neck/C-Spine: COMMON NORMALS: no JVD Resp: AUSCULTATION: crackles (Few) Cardio: COMMON NORMALS: no JVD, regular rhythm, S1 normal heart sound present, S2 normal heart sound present and No murmurs present (Cardio) RHYTHM: regular rhythm HEART SOUNDS: S1 normal heart sound present and S2 normal heart sound present GI: COMMON NORMALS: Normal to inspection, nondistended, normoactive bowel sounds present, Soft to palpation and non-tender PALPATION: Yes Soft to palpation Extremity: COMMON NORMALS: no joint enlargement and no pedal edema Neuro: COMMON NORMALS: patient oriented x3 and moves all extremities S ENSORIUM/ORIENTATION: Yes alert Skin: COMMON NORMALS: no rashes or lesions noted GENERAL SKIN EXAM: no rashes or lesions noted Urinary Catheter Management: Shelley: Cath Placed During This Visit: yes Reason for Continuing Indwelling Catheter: Accurate Measurement of Urinary Output in Critically Ill Patients Urinary Catheter Date of Insertion: 05/25/24 Urinary Catheter Time of Insertion: 03:30 Data 05/27/24 03:52 05/27/24 03:52 Micro: Microbiology 09/14/24 06:30 Gram Stain - Final Sputum - Expectorated Sputum A&P Assessment and plan (1) Pneumonia: Reviewed vitals, acute oxygen requirement. Worsened overnight to 9, but improved to 7 L. Through the afternoon down to 6 L. Continue Solu-Medrol 40 mg, increase to every 6 hours. Monitor for risk of hyperglycemia, hypertension, gastritis, encephalopathy with IV steroid. Continue Zosyn, Levaquin. Add as needed neb treatments. Will request modified barium swallow study. Reviewed blood culture so far negative. Patient with extensive bilateral pneumonia, status post COVID 6 weeks ago and treatment with Zithromax and doxycycline which would have treated atypical organisms. Also a family history of pulmonary fibrosis. No prior x-rays to compare to. Secondary to severity of pneumonia steroids initiated. Continue Solu-Medrol 40 mg IV every 24 hours IV antibiotics consisting of vancomycin, Zosyn, Levaquin. Sputum culture not yet obtained. Speech therapy consultation for consideration of aspiration appreciated MRSA PCR negative. blood culture negative to date Legionella antigen urine negative HIV negative Continue nebs Monitor closely for improvement Urinalysis performed, culture pending CTA was performed demonstrating no pulmonary embolism BNP and TSH were normal Mucinex, incentive spirometry added No evidence of aspiration 2 direct relatives with idiopathic pulmonary fibrosis. Unknown if this is an underlying condition. (2) Acute respiratory failure: Currently on 40% FiO2, try to wean today. If less decompensation with movement consider discontinuing Shelley (3) Lewy body dementia with behavioral disturbance: Dementia may complicate treatment Close monitoring With patient's significant anxiety, increase her home Xanax Plan Anxiety/air hunger: Continue Xanax. Full code Lovenox for DVT prophylaxis Okay for transfer out of ICU Attestations 2 Medical Necessity Statement*: Continue admission for assessment management of acute respiratory failure. and High MDM includes described risk of complication, morbidity or mortality of management as documented Diagnoses Pneumonia J18.9 Acute respiratory failure J96.00 Lewy body dementia with behavioral disturbance G31.83; F02.818
[2024-05-29] VITALS (13 sets, daily range): BP systolic 100–115; BP diastolic 63–72; PULSE 61–82; RESP 16–26; TEMP 36.6–36.8; O2SAT 92–100
[2024-05-29] MEDS: ipratropium-albuterol 3 mL Neb INHALATION ×4 (02:48→20:58)
[2024-05-29] MEDS: donepezil 5 MG Tablet PO (05:24)
[2024-05-29] MEDS: methylPREDNISolone sod succ 40 mg/mL INJ IVP ×4 (05:24→21:32)
[2024-05-29] MEDS: piperacillin-tazobactam 3.375 GM in sodium chloride 0.9% (plus) 50 ML IV ×3 (05:32→21:31)
[2024-05-29] MEDS: levofloxacin-dextrose 5 % 750 MG/150 ML PREMIX 100 MG IV (06:27)
[2024-05-29] MEDS: quetiapine 25 mg Tablet 50 MG PO ×2 (07:58→21:31)
[2024-05-29] MEDS: citalopram 20 mg Tablet PO (07:59)
[2024-05-29] MEDS: guaiFENesin 600 mg Tablet PO ×2 (07:59→17:25)
[2024-05-29 10:11] LABS: Basophils % 0.1 %; Eosinophils % 0.1 %; Hematocrit 40.4 % (36-47); Lymphocytes # 0.8 10^3/uL (0.8-4.8); Lymphocytes % 6.9 %; Mean Corpuscular HGB Conc 30.7 g/dL (30-55); Mean Corpuscular Hemoglobin 29.8 pg (27-33); Mean Corpuscular Volume 97.1 fl (85-98); Mean Platelet Volume 9.7 fL (7.4-10.4); Monocytes # 0.1 10^3/uL (0.2-0.9); Monocytes % 1.2 %; Neutrophils # 10.04 10^3/uL (1.8-7.7); Neutrophils % 91.2 %; Nucleated Red Blood Cells % 0 %; Platelet Count 282 10^3/cmm (157-399); Red Blood Count 4.16 10^6/uL (3.85-5.65); Red Cell Distribution Width 13.5 % (12.1-15.1)
[2024-05-29 10:30] LABS: Alanine Aminotransferase 16 U/L (0-33); Albumin Level 3.3 g/dL (3.5-5.2); Alkaline Phosphatase 86 U/L (35-105); Aspartate Amino Transferase 17 U/L (0-32); Blood Urea Nitrogen 8 mg/dL (6-20); Calcium 8.7 mg/dL (8.5-10.5); Carbon Dioxide 31 mmol/L (22-29); Chloride 100 mmol/L (98-107); Globulin 3.6 g/dL (1.3-4.6); Glomerular Filtration Rate 164.5 mL/min (90-130); Glucose 120 mg/dL (65-115); Osmolality Calculated 290 mOsm/kg (285-295); Sodium 140 mmol/L (136-145); Total Bilirubin 0.2 mg/dL (0.15-1.2); Total Protein 6.9 g/dL (6.6-8.7)
[2024-05-29 10:37] LABS: Anion Gap 12.9 (5-19); Potassium 3.9 mmol/L (3.5-5.1)
[2024-05-29] MEDS: enoxaparin 40 mg/0.4 mL Syringe SUBCUT (10:51)
--- NOTE | 2024-05-29 21:39 | P.PN_ITS ---
Subjective 2 Subjective: Dyspnea is similar. Productive cough with small amounts of easy to bring up phlegm. Vitals/I&O/Wt Last Vital Signs Temp 98.2 F 05/29/24 20:00 Pulse 82 05/29/24 21:19 Resp 24 H 05/29/24 20:59 BP 100/63 05/29/24 20:00 Pulse Ox 95 05/29/24 20:59 O2 Del Method High Flow Nasal Cannula 05/29/24 20:59 O2 Flow Rate 6 05/29/24 20:59 FiO2 40 05/26/24 13:03 05/29/24 05/29/24 05/29/24 06:59 14:59 22:59 Intake Total 50 / 1020 680 / 680 290 / 970 Balance 50 / 420 680 / 680 290 / 970 Weight last 48 hrs Weight 60.509 kg Weight 60.464 kg Physical Exam 2 Const: COMMON NORMALS: patient oriented x3 and alert GENERAL APPEARANCE: c ooperative ORIENTATION/CONSCIOUSNESS: Yes awake HENMT: COMMON NORMALS: oropharynx normal Neck/C-Spine: COMMON NORMALS: no JVD Resp: AUSCULTATION: crackles (Few) Cardio: COMMON NORMALS: no JVD, regular rhythm, S1 normal heart sound present, S2 normal heart sound present and No murmurs present (Cardio) RHYTHM: regular rhythm HEART SOUNDS: S1 normal heart sound present and S2 normal heart sound present GI: COMMON NORMALS: Normal to inspection, nondistended, normoactive bowel sounds present, Soft to palpation and non-tender PALPATION: Yes Soft to palpation Extremity: COMMON NORMALS: no joint enlargement and no pedal edema Neuro: COMMON NORMALS: patient oriented x3 and moves all extremities S ENSORIUM/ORIENTATION: Yes alert Skin: COMMON NORMALS: no rashes or lesions noted GENERAL SKIN EXAM: no rashes or lesions noted Urinary Catheter Management: Shelley: Cath Placed During This Visit: yes Reason for Continuing Indwelling Catheter: Accurate Measurement of Urinary Output in Critically Ill Patients Urinary Catheter Date of Insertion: 05/25/24 Urinary Catheter Time of Insertion: 03:30 Data 05/29/24 09:32 05/29/24 09:32 Micro: Microbiology 05/28/24 06:30 Gram Stain - Final Sputum - Expectorated Sputum Sputum Culture - Preliminary 05/24/24 04:49 Blood Culture - Final Blood NO GROWTH AFTER 5 DAYS 05/24/24 04:00 Blood Culture - Final Blood NO GROWTH AFTER 5 DAYS A&P Assessment and plan (1) Pneumonia: Reviewed vitals, oxygen requirement, CBC, CMP, respiratory culture, blood culture. Discussed with her and requested a modified barium swallow study. Sputum and blood cultures without organisms. Continue Solu-Medrol 40 mg, increase to every 6 hours. Monitor for risk of hyperglycemia, hypertension, gastritis, encephalopathy with IV steroid. Continue Zosyn, Levaquin. Add as needed neb treatments. Patient with extensive bilateral pneumonia, status post COVID 6 weeks ago and treatment with Zithromax and doxycycline which would have treated atypical organisms. Also a family history of pulmonary fibrosis. No prior x-rays to compare to. Secondary to severity of pneumonia steroids initiated. Continue Solu-Medrol 40 mg IV every 24 hours IV antibiotics consisting of vancomycin, Zosyn, Levaquin. Sputum culture not yet obtained. Speech therapy consultation for consideration of aspiration appreciated MRSA PCR negative. blood culture negative to date Legionella antigen urine negative HIV negative Continue nebs Monitor closely for improvement Urinalysis performed, culture pending CTA was performed demonstrating no pulmonary embolism BNP and TSH were normal Mucinex, incentive spirometry added No evidence of aspiration 2 direct relatives with idiopathic pulmonary fibrosis. Unknown if this is an underlying condition. (2) Acute respiratory failure: Currently on 40% FiO2, try to wean today. If less decompensation with movement consider discontinuing Shelley (3) Lewy body dementia with behavioral disturbance: Modified barium swallow study. Dementia may complicate treatment Close monitoring With patient's significant anxiety, increase her home Xanax Plan Anxiety/air hunger: Continue Xanax. Full code Lovenox for DVT prophylaxis Okay for transfer out of ICU Attestations 2 Medical Necessity Statement*: Continue admission for assessment management of acute respiratory failure. and High MDM includes described risk of complication, morbidity or mortality of management as documented Diagnoses Pneumonia J18.9 Acute respiratory failure J96.00 Lewy body dementia with behavioral disturbance G31.83; F02.818
[2024-05-30] VITALS (10 sets, daily range): BP systolic 102–107; BP diastolic 65–72; PULSE 62–79; RESP 16–21; TEMP 36.3–36.7; O2SAT 94–98
[2024-05-30] MEDS: ipratropium-albuterol 3 mL Neb INHALATION ×3 (01:58→14:50)
[2024-05-30] MEDS: methylPREDNISolone sod succ 40 mg/mL INJ IVP ×2 (05:14→09:33)
[2024-05-30 05:35] LABS: Basophils % 0.1 %; Hematocrit 39.4 % (36-47); Lymphocytes # 1.2 10^3/uL (0.8-4.8); Lymphocytes % 11.1 %; Mean Corpuscular HGB Conc 31.2 g/dL (30-55); Mean Corpuscular Volume 96.1 fl (85-98); Mean Platelet Volume 8.8 fL (7.4-10.4); Monocytes # 0.3 10^3/uL (0.2-0.9); Monocytes % 3.1 %; Neutrophils # 9.41 10^3/uL (1.8-7.7); Neutrophils % 85.1 %; Nucleated Red Blood Cells % 0 %; Platelet Count 238 10^3/cmm (157-399); Red Cell Distribution Width 13.5 % (12.1-15.1); White Blood Count 11.06 10^3/uL (3.29-11.43)
[2024-05-30 05:57] LABS: Alanine Aminotransferase 17 U/L (0-33); Albumin Level 3.3 g/dL (3.5-5.2); Alkaline Phosphatase 76 U/L (35-105); Anion Gap 9.8 (5-19); Aspartate Amino Transferase 12 U/L (0-32); Blood Urea Nitrogen 13 mg/dL (6-20); Calcium 8.7 mg/dL (8.5-10.5); Carbon Dioxide 34 mmol/L (22-29); Chloride 99 mmol/L (98-107); Creatinine Clr Calc Pharmacy 111.7151; Globulin 3.2 g/dL (1.3-4.6); Glomerular Filtration Rate 127.2 mL/min (90-130); Glucose 134 mg/dL (65-115); Osmolality Calculated 290 mOsm/kg (285-295); Potassium 3.8 mmol/L (3.5-5.1); Sodium 139 mmol/L (136-145); Total Bilirubin 0.2 mg/dL (0.15-1.2); Total Protein 6.5 g/dL (6.6-8.7)
[2024-05-30] MEDS: levofloxacin-dextrose 5 % 750 MG/150 ML PREMIX 100 MG IV (06:08)
[2024-05-30] MEDS: donepezil 5 MG Tablet PO (06:08)
[2024-05-30] MEDS: piperacillin-tazobactam 3.375 GM in sodium chloride 0.9% (plus) 50 ML IV (06:37)
[2024-05-30] MEDS: citalopram 20 mg Tablet PO (08:28)
[2024-05-30] MEDS: quetiapine 25 mg Tablet 50 MG PO (08:28)
[2024-05-30] MEDS: guaiFENesin 600 mg Tablet PO (08:28)
--- NOTE | 2024-05-30 08:30 | FL_ITS ---
WS: [id number] MODIFIED BARIUM SWALLOW TECHNIQUE: Modified barium swallow with speech therapy using multiple consistencies. FLUOROSCOPY TIME: 3min [id number] # of spot films: 0 CLINICAL INFORMATION: Oropharyngeal dysphagia COMPARISON: None. FINDINGS: Multiple consistencies utilized. No evidence of aspiration or penetration. No other suspicious findin gs. FL/FL barium swallow modifd 81949 IMPRESSION: Normal modified barium swallow Please see speech therapy evaluation for further detail
[2024-05-30] MEDS: ALPRAZolam 0.5 mg Tablet PO (09:33)
[2024-05-30] MEDS: enoxaparin 40 mg/0.4 mL Syringe SUBCUT (11:46)
--- NOTE | 2024-05-30 13:09 | P.DS_ITS ---
Discharge Providers Date of Admission: 05/24/24 10:28 Date of Discharge: May 30, 2024 Attending Provider at Admission: Shekhar Diamond MD Attending Provider at Discharge: Elmer eYager Diagnoses at Discharge Discharge Diagnosis (1) Pneumonia: Status: Acute (2) Acute respiratory failure: Status: Acute (3) Lewy body dementia with behavioral disturbance: Status: Acute Reason for Visit Reason for Visit: SOB Hospital Course Hospital Course Very pleasant 59-year-old lady with history of Lewy body dementia currently residing at [facility], anxiety, for which she is on citalopram, as needed Xanax, never smoker, without other significant medical illness, was admitted for assessment management after having symptoms of shortness of breath, with concern for pneumonia after COVID-19 6 weeks ago for which she completed a course of azithromycin and then doxycycline. Reports family history of pulmonary fibrosis. On presentation was assessed with CT angiogram of the chest which showed extensive bilateral pneumonia. No PE. She was started empiric antibiotic coverage with Zosyn, Levaquin, vancomycin. Nebulizer treatments. Viral PCR studies for COVID, flu, RSV were negative. Blood culture and sputum cultures were obtained and were negative. She had protracted high oxygen requirement with heated high flow 30 L/min, oxy mask as high as 9 L. MRSA PCR came back negative. Vancomycin was de-escalated. She was receiving Solu-Medrol which was increased in frequency from 40 mg every 24 hours up to every 6 hours. She gradually started showing improvement, oxygenation requirement came down to 4 L nasal cannula. She was assessed by modified barium swallow study which showed spillage to the piriforms with thin liquids. Although inconsistent finding. No significant pharyngeal residue noted after swallows completed. No episodes of penetration or aspiration noted during the study. Liquid tracer was needed to clear barium tablet through the esophagus. Discussing with asphalt dauber, on review of images the pattern of lung findings is consistent with aspiration/chemical pneumonitis. There was no overt aspiration, but aspiration precautions should still be maintained. Please maintain with oral intake as well as at night with consideration of nighttime aspiration. Consider esophageal pH study. She will complete antibiotic course with Levaquin, continue steroid with prednisone taper and is referred for follow-up with pulmonology in office as per discussion. With anxiety exacerbated by hypoxia, Xanax dose had to be increased. Consider de-escalation in parallel with condition improvement. Physical Exam Const: COMMON NORMALS: patient oriented x3 and alert GENERAL APPEARANCE: cooperative ORIENTATION/CONSCIOUSNESS: Yes awake HENMT: COMMON NORMALS: oropharynx normal Neck/C-Spine: COMMON NORMALS: no JVD Resp: COMMON NORMALS: normal respiratory effort AUSCULTATION: rales (Few) Cardio: COMMON NORMALS: no JVD, regular rhythm, S1 normal heart sound present, S2 normal heart sound present and No murmurs present (Cardio) RHYTHM: regular rhythm HEART SOUNDS: S1 normal heart sound present and S2 normal heart sound present GI: COMMON NORMALS: Normal to inspection, nondistended, normoactive bowel sounds present, Soft to palpation and non-tender PALPATION: Yes Soft to palpation Extremity: COMMON NORMALS: no joint enlargement and no pedal edema Neuro: COMMON NORMALS: patient oriented x3 and moves all extremities SENSORIUM/ORIENTATION: Yes alert Skin: COMMON NORMALS: no rashes or lesions noted GENERAL SKIN EXAM: no rashes or lesions noted Urinary Catheter Management: Shelley: Cath Placed During This Visit: yes Reason for Continuing Indwelling Catheter: Accurate Measurement of Urinary Output in Critically Ill Patients Urinary Catheter Date of Insertion: 05/25/24 Urinary Catheter Time of Insertion: 03:30 Discharge Data Studies Completed and Pending Completed Studies During Hospitalization Category Date Time Status CT angio chest PE protcl 67002 Stat Cat Scan 05/24/24 04:50 Completed FL barium swallow modifd 07125 Routine Exams 05/30/24 08:30 Completed XR chest 1V portable [id number] Stat Exams 05/24/24 03:55 Completed CV. echo complete* [id number] Routine Ultrasound 05/26/24 07:10 Completed Pending at discharge Category Date Time Status Complete Blood Count w/Auto AM LABS Lab 05/31/24 04:00 Ordered Complete Blood Count w/Auto AM LABS Lab 06/01/24 04:00 Ordered Comprehensive Metabolic Panel AM LABS Lab 05/31/24 04:00 Ordered Comprehensive Metabolic Panel AM LABS Lab 06/01/24 04:00 Ordered Radiology Impressions Chest X-Ray 05/24/24 03:55 IMPRESSION: Extensive pulmonary infiltrates. Chest CTA 05/24/24 04:50 IMPRESSION: Extensive bilateral pneumonia. No evidence of embolus. Modified Barium Swallow 05/30/24 08:30 IMPRESSION: Normal modified barium swallow Please see speech therapy evaluation for further detail Laboratory Results WBC 11.06 10^3/uL (3.29-11.43) 05/30/24 05:13 RBC 4.10 10^6/uL (3.85-5.65) 05/30/24 05:13 Hgb 12.30 g/dL (11.27-16.99) 05/30/24 05:13 Hct 39.4 % (36-47) 05/30/24 05:13 MCV 96.1 fl (85-98) 05/30/24 05:13 MCH 30.0 pg (27-33) 05/30/24 05:13 MCHC 31.2 g/dL (30-55) 05/30/24 05:13 RDW 13.5 % (12.1-15.1) 05/30/24 05:13 Plt Count 238 10^3/cmm (157-399) 05/30/24 05:13 MPV 8.8 fL (7.4-10.4) 05/30/24 05:13 Neut % (Auto) 85.1 % 05/30/24 05:13 Lymph % (Auto) 11.1 % 05/30/24 05:13 [place] % (Auto) 3.1 % 05/30/24 05:13 Eos % (Auto) 0.0 % 05/30/24 05:13 Baso % (Auto) 0.1 % 05/30/24 05:13 Neut # (Auto) 9.41 10^3/uL (1.8-7.7) H 05/30/24 05:13 Lymph # (Auto) 1.2 10^3/uL (0.8-4.8) 05/30/24 05:13 [place] # (Auto) 0.3 10^3/uL (0.2-0.9) 05/30/24 05:13 Eos # (Auto) 0.0 10^3/uL (0.0-0.8) 05/30/24 05:13 Baso # (Auto) 0.0 10^3/uL (0.0-0.1) 05/30/24 05:13 Nucleated RBC % (auto) 0 % 05/30/24 05:13 Nucleated RBCs # 0.0 /100WBC 05/30/24 05:13 Specimen Type Arterial 05/24/24 04:04 Sample Site Brachial, left 05/24/24 04:04 ABG pH 7.44 (7.35-7.45) 05/24/24 04:04 ABG pCO2 46.0 mmHg (35-45) H 05/24/24 04:04 ABG pO2 65.3 mmHg (80.0-100.0) L 05/24/24 04:04 ABG HCO3 30.9 mmol/L (22-26) H 05/24/24 04:04 ABG O2 Saturation 94.1 05/24/24 04:04 ABG Base Excess 5.7 mmol/L (-2.0-2.0) H 05/24/24 04:04 Rich Test N/a 05/24/24 04:04 A-a O2 Gradient 3.7 mmHg (5-10) L 05/24/24 04:04 Hematocrit 41.9 % (37-47) 05/24/24 04:04 Hgb O2 Saturation 92.6 % (95-100) L 05/24/24 04:04 Carboxyhemoglobin 1.6 %THgb (0.4-20.1) 05/24/24 04:04 Methemoglobin 0.0 % (0.4-1.5) L 05/24/24 04:04 Total Hemoglobin 13.7 g/dL (12-16) 05/24/24 04:04 Sodium 138.0 mmol/L (131-143) 05/24/24 04:04 Potassium 4.0 mmol/L (3.5-5.0) 05/24/24 04:04 Glucose 112.0 mg/dL (70-115) 05/24/24 04:04 Ionized Calcium 1.2 mmol/L (1.1-1.4) 05/24/24 04:04 O2 Delivery Device Nc 05/24/24 04:04 O2 Liters/Min 4.0 % 05/24/24 04:04 Client Account Assistant ID Leland 05/24/24 04:04 Sodium 139 mmol/L (136-145) 05/30/24 05:13 Potassium 3.8 mmol/L (3.5-5.1) 05/30/24 05:13 Chloride 99 mmol/L (98-107) 05/30/24 05:13 Carbon Dioxide 34 mmol/L (22-29) H 05/30/24 05:13 Anion Gap 9.8 (5-19) 05/30/24 05:13 BUN 13 mg/dL (6-20) 05/30/24 05:13 Creatinine 0.5 mg/dL (0.5-0.9) 05/30/24 05:13 GFR Calculation 127.2 mL/min (90-130) 05/30/24 05:13 Glucose 134 mg/dL (65-115) H 05/30/24 05:13 Calculated Osmolality 290 mOsm/kg (285-295) 05/30/24 05:13 Lactic Acid 1.8 mmol/L (0.5-2.2) 05/24/24 03:57 Calcium 8.7 mg/dL (8.5-10.5) 05/30/24 05:13 Magnesium 2.0 mg/dL (1.7-2.3) 05/26/24 03:38 Total Bilirubin 0.2 mg/dL (0.15-1.2) 05/30/24 05:13 AST 12 U/L (0-32) 05/30/24 05:13 ALT 17 U/L (0-33) 05/30/24 05:13 Alkaline Phosphatase 76 U/L (35-105) 05/30/24 05:13 Troponin T Baseline 10 ng/L (0-10) 05/24/24 03:57 Troponin T 120 Minute 9.02 ng/L (0-10) 05/24/24 05:54 Delta Troponin T -0.98 ABS# (0-10) L 05/24/24 05:54 Troponin T Hi Sens 6Hr 7.39 ng/L (0-10) 05/24/24 09:49 Troponin T Hi Sens 6Hr Delta -2.61 ng/L (0-12) L 05/24/24 09:49 C-Reactive Protein 44.3 mg/L (0.0-4.9) H 05/25/24 03:43 NT-Pro-B Natriuret Pep 41 pg/mL (0-125) 05/24/24 09:49 Total Protein 6.5 g/dL (6.6-8.7) L 05/30/24 05:13 Albumin 3.3 g/dL (3.5-5.2) L 05/30/24 05:13 Globulin 3.2 g/dL (1.3-4.6) 05/30/24 05:13 Procalcitonin 0.08 ng/mL (0-0.5) 05/24/24 03:57 TSH 0.41 uIU/mL (0.27-4.20) 05/24/24 09:49 Urine Color Yellow (Yellow) 05/25/24 08:22 Urine Appearance Cloudy (CLEAR) A 05/25/24 08:22 Urine pH 5.5 (5-7) 05/25/24 08:22 Ur Specific [place] 1.026 (1.005-1.030) 05/25/24 08:22 Urine Protein 1+ (Negative) A 05/25/24 08:22 Urine Glucose (UA) Negative (Normal) 05/25/24 08:22 Urine Ketones Negative (Negative) 05/25/24 08:22 Urine Blood 1+ (Negative) A 05/25/24 08:22 Urine Nitrate Negative (Negative) 05/25/24 08:22 Urine Bilirubin Negative (Negative) 05/25/24 08:22 Urine Urobilinogen 1.0 mg/dL (Negative) 05/25/24 08:22 Ur Leukocyte Esterase Trace (Negative) A 05/25/24 08:22 Urine RBC 11-20 /hpf (0-2) H 05/25/24 08:22 Urine WBC 21-50 /hpf (0-5) H 05/25/24 08:22 Ur Squamous Epith Cells 0-5 /hpf (0-5) 05/25/24 08:22 Amorphous Sediment Not Reportable 05/25/24 08:22 Urine Bacteria None seen /hpf (NONE) 05/25/24 08:22 Hyaline Casts 4.52 /lpf 05/25/24 08:22 Vancomycin Trough 14.0 ug/mL (10-15) 05/26/24 07:39 Coronavirus (PCR) Negative (Negative) 05/24/24 03:57 HIV 1&2 Ab & HIV 1 Ag Non-reactive (Non-Reactiv) 05/24/24 03:57 HIV 1&2 Antibody Non-reactive (Non-Reactiv) 05/24/24 03:57 Influenza A (PCR) Negative (Negative) 05/24/24 03:57 Influenza Type B (PCR) Negative (Negative) 05/24/24 03:57 RSV (PCR) Negative (Negative) 05/24/24 03:57 MRSA (PCR) Not detected (NOT DETECTED) 05/24/24 15:21 Vitals Last Vital Signs Temp 97.3 F L 05/30/24 08:00 Pulse 78 05/30/24 08:21 Resp 20 H 05/30/24 08:10 BP 106/72 05/30/24 08:00 Pulse Ox 97 05/30/24 08:10 O2 Del Method High Flow Nasal Cannula 05/30/24 08:10 O2 Flow Rate 4 05/30/24 08:10 FiO2 40 05/26/24 13:03 Discharge Plan Discharge Patient Disposition: Xfer SNF Condition: Stable Prescriptions: New levofloxacin 750 mg tablet 750 mg PO DAILY 5 Days Qty: 5 0RF prednisone 20 mg tablet 20 mg PO BID Qty: 20 0RF Rx Instructions: 3 tab daily for 3 days, then 2 tab for 3 days, then 1 tab for 3 days, then 1/2 tab for 4 days. alprazolam 0.5 mg Tablet 0.5 mg PO Q4H PRN (Reason: Anxiety) Qty: 30 0RF Continued epinephrine [EpiPen] 0.3 mg/0.3 mL auto-injector 0.3 mg IM Q10M PRN (Reason: anaphylaxis) Qty: 1 0RF Rx Instructions: for 2 doses cyclobenzaprine 5 mg tablet 5 mg PO BID PRN (Reason: muscle spasms) quetiapine 50 mg tablet 50 mg PO 0900,2100 30 Days Qty: 180 1RF citalopram 20 mg Tablet 20 mg PO DAILY 30 Days Qty: 30 1RF benztropine 1 mg Tablet 1 mg PO BID PRN (Reason: Mild Extrapyramidal symptoms) 30 Days Qty: 60 1RF acetaminophen 325 mg Tablet 650 mg PO Q4H PRN (Reason: general discomfort) albuterol sulfate 2.5 mg /3 mL (0.083 %) Solution For Nebulization 2.5 mg INHALATION Q4H PRN (Reason: Shortness Of Breath) bisacodyl 5 mg Tablet 10 mg PO DAILY PRN (Reason: Constipation) Artificial Tears (PF) Dropperette 2 drp OPHTHALMIC (EYE) Q4H PRN (Reason: Dry Eyes) Cough Drops 5 mg Lozenge 5 mg MUCOUS MEMBRANE Q4H PRN (Reason: Cough) Aricept 5 mg tablet 5 mg PO QAM Discontinued alprazolam [Xanax] 0.25 mg Tablet 0.25 mg PO BID PRN (Reason: Anxiety) Discharge Orders: Discharge Order (Routine); Ordered 05/30/24 Ordered By: Elmer Yeager Referrals: Primary, provider [Other] - 4-7 days Pulmonary [Provider Group] - 1 week (Hypoxia, possible pulmonary fibrosis. We have notified your physician's clinic of the need for a follow-up appointment to be scheduled. If you have not heard from them within the next 2 business days, please call them directly. ) [facility] [Outside] Patient Instructions: Aspiration Precautions (GEN) Activity Restrictions/Additional Instructions: Please maintain strict aspiration precautions. Follow-up with pulmonology with suspicion of chemical pneumonitis but for consideration of any additional causes in case of slow or lack of improvement. Please continue follow-up with speech therapy if possible. Complete steroid taper. Complete Levaquin course. Continue oxygen 4 L/min by nasal cannula, target oxygen saturation 90-92%. Taper down as tolerating. Seek medical attention in case of any worsening or new concerning symptoms. Discharge Attestations Time Spent in Discharge Care*: greater than 30 min Quality Metrics Clinical Quality Measures [ No reported AMI, CVA or VTE this stay] Coding Level of Care Code 94267 Total time (in minutes) for Discharge: 50 Diagnoses Pneumonia J18.9 Acute respiratory failure J96.00 Lewy body dementia with behavioral disturbance G31.83; F02.818
== END 2024-05-30 15:45 | disposition skilled nursing facility (03) | DRG 193 ==
LOC: ER 06:14 → MEDSURG 10:28 → ICU 18:37 → MEDSURG 05-27 14:50
PROVIDERS: Emergency Medicine; Admitting Provider Internal Medicine; Emergency Provider Family Medicine; Visit Provider Internal Medicine
DX: J18.9 Pneumonia, unspecified organism (principal); J96.01 Acute respiratory failure with hypoxia; F02.818 Dementia in other diseases classified elsewhere, unspecified severity, with other behavioral disturbance; G31.83 Neurocognitive disorder with Lewy bodies; Z86.16 Personal history of COVID-19; Z79.899 Other long term (current) drug therapy; Z87.891 Personal history of nicotine dependence; Z88.8 Allergy status to other drugs, medicaments and biological substances; Z66 Do not resuscitate; F41.9 Anxiety disorder, unspecified; R13.12 Dysphagia, oropharyngeal phase; Z11.52 Encounter for screening for COVID-19
CPT/HCPCS: 0241U; 36415; 36600; 51702; 71045; 71275; 74230; 80048; 80051; 80053; 80202; 81001; 82330; 82805; 83605; 83735; 83880; 84145; 84443; 84484; 85025; 86140; 87040; 87070; 87086; 87205; 87449; 87641; 87806; 92507; 92523; 92526; 92610; 92611; 93005; 93306; 94640; 96365; 96367; 96372; 96375; 99285; J0692; J1650; J1956; J2020; J2543; J2919; J3370; J7030; J7613

== ENCOUNTER 2024-06-02 09:35 | Emergency (ER) | payer MEDICAID, SELFPAY ==
[2024-06-02] VITALS (9 sets, daily range): BP systolic 91–119; BP diastolic 60–76; PULSE 68–96; RESP 20–30; TEMP 37.1; O2SAT 76–96; BMI 21.2
--- NOTE | 2024-06-02 09:30 | ECG_ITS ---
[facility] Test Date: 2024-06-02 Pat Name: Abby Tomlinson Department: Room: Gender: Female [employer]: : 1965 Requested By: Angelica Griffith Order Number: [id number] Nichole MD: Ant Hernandez M.D. Measurements Intervals [place] Rate: 89 P: 55 NE: 105 QRS: 66 QRSD: 151 T: 41 QT: 334 QTc: 406 Interpretive Statements SINUS RHYTHM WITH SHORT NE INTERVAL POSSIBLE LEFT ATRIAL ENLARGEMENT [-0.1mV P-WAVE IN V1/V2] INTRAVENTRICULAR CONDUCTION DELAY [130+ ms QRS DURATION] Compared to ECG 05/24/2024 10:00:11 Intraventricular conduction delay now present T-wave abnormality no longer present Electronically Signed On 06-02-2024 14:14:43 CDT by Ant Hernandez M.D. [email or web address]
--- NOTE | 2024-06-02 10:26 | W.ED.SOB ---
HPI - SOB/Dyspnea General: Chief Complaint: Shortness of Breath/Dyspnea Stated Complaint: SOB Time Seen by Provider: 06/02/24 09:36 History of Present Illness: HPI Narrative: 59-year-old female with a history of idiopathic pulmonary fibrosis which apparently is end-stage at this point and Lewy body dementia who presents to the emergency room from pulmonary clinic at the request of having her placed on hospice. Pulmonary reported to me that her oxygen requirements are up to 10 to 12 L at this point and she cannot just send her directly back to the care home apparently. Internet Marketing Coordinator also reports to me that family has been discussed with her that they would like to place her on hospice. The sister she spoke with is her POA. Related Data Home Medications Medication Instructions Recorded Confirmed cyclobenzaprine 5 mg tablet 5 mg PO BID PRN muscle spasms 01/04/24 06/02/24 acetaminophen 325 mg tablet 650 mg PO Q4H PRN general 05/24/24 06/02/24 discomfort albuterol sulfate 2.5 mg/3 mL 2.5 mg inhalation Q4H PRN 05/24/24 06/02/24 (0.083 %) solution for nebulization Shortness Of Breath bisacodyl 5 mg tablet 10 mg PO DAILY PRN Constipation 05/24/24 06/02/24 dextran 70-hypromellose eye drops 2 drp ophthalmic (eye) Q4H PRN Dry 05/24/24 06/02/24 in a dropperette (Artificial Tears Eyes (PF) drops in a dropperette) donepezil 5 mg tablet (Aricept) 5 mg PO QAM 05/24/24 06/02/24 menthol 5 mg lozenges (Cough Drops) 5 mg mucous membrane Q4H PRN Cough 05/24/24 06/02/24 benztropine 1 mg tablet 1 mg PO BID PRN 06/02/24 06/02/24 Previous Rx's Medication Instructions Recorded epinephrine 0.3 mg/0.3 mL 0.3 mg (0.3 mL) IM Q10M PRN 01/31/22 injection, auto-injector (EpiPen) anaphylaxis #1 ea benztropine 1 mg tablet 1 mg PO BID PRN Mild 11/10/23 Extrapyramidal symptoms 30 days #60 tabs citalopram 20 mg tablet 20 mg PO DAILY 30 days #30 tabs 11/10/23 quetiapine 50 mg tablet 50 mg PO 0900,2100 30 days #180 01/04/24 tabs alprazolam 0.5 mg tablet 0.5 mg PO Q4H PRN Anxiety #30 tabs 05/30/24 prednisone 20 mg tablet 20 mg PO BID #20 tabs 05/30/24 lorazepam 2 mg/mL injection syringe 1 mg (0.5 mL) sublingual Q4H PRN 06/02/24 agitation #10 mL morphine concentrate 100 mg/5 mL 10 mg (0.5 mL) PO Q2H PRN dyspnea 06/02/24 (20 mg/mL) oral solution #120 mL Allergies Allergy/AdvReac Type Severity Reaction Status Date / Time Alpha-Gal Allergy ALGY-Anaphy Verified 01/04/24 09:52 (Qerhylcol-Syxgy-6,3-Gala laxis Review of Systems Narrative: Constitutional symptoms: Negative except as documented in HPI. Skin symptoms: Negative except as documented in HPI. Eye symptoms: Negative except as documented in HPI. ENMT symptoms: Negative except as documented in HPI. Respiratory symptoms: Negative except as documented in HPI. Cardiovascular symptoms: Negative except as documented in HPI. Gastrointestinal symptoms: Negative except as documented in HPI. Genitourinary symptoms: Negative except as documented in HPI. Musculoskeletal symptoms: Negative except as documented in HPI. Neurologic symptoms: Negative except as documented in HPI. Psychiatric symptoms: Negative except as documented in HPI. Endocrine symptoms: Negative except as documented in HPI. PFSH ED PFSH: Medical History Lewy body dementia with behavioral disturbance Family History Mother Lung disease Social History Smoking and tobacco/nicotine status: never used tobacco/nicotine Alcohol intake: never Physical Exam Narrative: EXAM NARRATIVE: General: Alert, no acute distress. Skin: Warm, dry. Head: Normocephalic, atraumatic. Neck: Supple, trachea midline. Eye: Extraocular movements are intact. Ears, nose, mouth and throat: Oral mucosa moist. Cardiovascular: Regular rate and rhythm, Normal peripheral perfusion. Respiratory: Coarse and wheezing breath sounds, moderate tachypnea, mild increased work of breathing. Large oxygen requirement. O2 sats in the low 70s with transferring to the bed on 10 L. Gastrointestinal: Soft, Nontender, Non distended, Normal bowel sounds. Musculoskeletal: Normal ROM, no deformity. Neurological: Alert and oriented to person, place, time, and situation, No focal neurological deficit observed. Psychiatric: Cooperative, appropriate mood & affect. Moderate Course Vital Signs: Vital signs: Vital Signs Temperature 98.7 F 06/02/24 09:44 Pulse Rate 92 06/02/24 10:38 Respiratory Rate 24 H 06/02/24 10:38 Blood Pressure 111/69 06/02/24 10:38 Pulse Oximetry 92 06/02/24 10:38 Oxygen Delivery Me thod Nasal Cannula 06/02/24 10:38 Oxygen Flow Rate 10 06/02/24 10:38 MDM - SOB/Dyspnea Medical Decision Making Consultation: I spoke with Dr. Diamond who is the physician for the care home. He is familiar with the patient. Make recommendations on hospice medications. Consultation: I spoke with Dr. Ramírez with pulmonology. She is recommending hospice care. She is talked with the family. I spoke directly with the sister who is POA. She is completely comfortable with going back to the care home on comfort measures. Assessment and plan: End-stage pulmonary fibrosis Hospice evaluation - Discharged home - Discussed plan with patient. Answered any questions. - Evaluation and treatment of this problem were appropriate in the emergency setting. No radiology studies performed this visit Discharge Plan Discharge Patient Disposition: Home Clinical Impression: Pulmonary fibrosis, Lewy body dementia, Chronic hypoxemic respiratory failure Condition: Stable Prescriptions: New morphine concentrate 100 mg/5 mL (20 mg/mL) solution 10 mg PO Q2H PRN (Reason: dyspnea) Qty: 120 0RF Rx Instructions: 0.25 to 0.5 mL every 2 hours as needed for air hunger or pain lorazepam 2 mg/mL syringe 1 mg sublingual Q4H PRN (Reason: agitation) Qty: 10 0RF Rx Instructions: 0.5 to 1 mL every 4 hours for anxiety or agitation No Action epinephrine [EpiPen] 0.3 mg/0.3 mL auto-injector 0.3 mg IM Q10M PRN (Reason: anaphylaxis) Qty: 1 0RF Rx Instructions: for 2 doses benztropine 1 mg tablet 1 mg PO BID PRN cyclobenzaprine 5 mg tablet 5 mg PO BID PRN (Reason: muscle spasms) quetiapine 50 mg tablet 50 mg PO 0900,2100 30 Days Qty: 180 1RF citalopram 20 mg Tablet 20 mg PO DAILY 30 Days Qty: 30 1RF benztropine 1 mg Tablet 1 mg PO BID PRN (Reason: Mild Extrapyramidal symptoms) 30 Days Qty: 60 1RF acetaminophen 325 mg Tablet 650 mg PO Q4H PRN (Reason: general discomfort) albuterol sulfate 2.5 mg /3 mL (0.083 %) Solution For Nebulization 2.5 mg INHALATION Q4H PRN (Reason: Shortness Of Breath) bisacodyl 5 mg Tablet 10 mg PO DAILY PRN (Reason: Constipation) Artificial Tears (PF) Dropperette 2 drp OPHTHALMIC (EYE) Q4H PRN (Reason: Dry Eyes) Cough Drops 5 mg Lozenge 5 mg MUCOUS MEMBRANE Q4H PRN (Reason: Cough) Aricept 5 mg tablet 5 mg PO QAM prednisone 20 mg tablet 20 mg PO BID Qty: 20 0RF Rx Instructions: 3 tab daily for 3 days, then 2 tab for 3 days, then 1 tab for 3 days, then 1/2 tab for 4 days. alprazolam 0.5 mg Tablet 0.5 mg PO Q4H PRN (Reason: Anxiety) Qty: 30 0RF Discharge Orders: Discharge ED (Routine); Ordered 06/02/24 Ordered By: Angelica Jacob Discharge Diet: Usual diet Discharge Activity: Increase activity as tolerated Patient Instructions: Chronic Respiratory Failure (DC) Activity Restrictions/Additional Instructions: Thank you for choosing [facility] for your healthcare needs today. Please realize this is an emergency room and that we are providing you with a medical screening exam and this may not be complete and all inclusive of all the testing and or work up that you may need to determine your ailment or severity of your illness. You have been screened and evaluated and felt safe for discharge. Health conditions do change or evolve sometimes and as such it is important that you follow up with your Primary Doctor to be re checked, 3-5 days is a general good time frame for follow up. You are always welcome to return to the ED for re assessment if your symptoms are worsening or you have new concerns Coding Level of Care Code ED Brake Specialist for Amparo Bee
[2024-06-02] MEDS: LORazepam 1 mg Tablet PO (10:37)
[2024-06-02] MEDS: dexamethasone 10 mg/mL INJ IM (11:15)
== END 2024-06-02 13:33 | disposition home or self-care (01) ==
PROVIDERS: Emergency Provider Emergency Medicine
DX: J96.11 Chronic respiratory failure with hypoxia (principal); J84.10 Pulmonary fibrosis, unspecified; Z99.81 Dependence on supplemental oxygen; G31.83 Neurocognitive disorder with Lewy bodies; F02.80 Dementia in other diseases classified elsewhere, unspecified severity, without behavioral disturbance, psychotic disturbance, mood disturbance, and anxiety
CPT/HCPCS: 93005; 94799; 96372; 99205; 99284; J1100